=== PATIENT | male | born 1945 | race Caucasian/White ===

== ENCOUNTER 2017-08-31 08:37 | Outpatient (CLI) | payer MEDICARE, BC ==
[2017-08-31 12:36] LABS: CHOL/HDL RATIO 8.6 (<5.0); CHOLESTEROL 285 mg/dL; HDL CHOLESTEROL 33 mg/dL; LDL/HDL RATIO 5.3 (<3.6); TRIGLYCERIDES 391 mg/dL; VLDL CHOLESTEROL 78 mg/dL
== END 2017-08-31 08:38 | disposition home or self-care (01) ==
LOC: LAB.F 08:37
PROVIDERS: ATTEND Family Medicine
DX: E78.2 Mixed hyperlipidemia (principal); Z79.01 Long term (current) use of anticoagulants; Z79.899 Other long term (current) drug therapy; I48.91 Unspecified atrial fibrillation
CPT/HCPCS: 36415; 80061; 85610

== ENCOUNTER 2017-10-13 08:27 | Outpatient (CLI) | payer MEDICARE, BC ==
[2017-10-13 18:06] LABS: CHOL/HDL RATIO 8.1 (<5.0); CHOLESTEROL 244 mg/dL; HDL CHOLESTEROL 30 mg/dL; LDL/HDL RATIO 5.9 (<3.6); TRIGLYCERIDES 190 mg/dL; VLDL CHOLESTEROL 38 mg/dL
== END 2017-10-13 08:28 | disposition home or self-care (01) ==
LOC: LAB.F 08:27
PROVIDERS: ATTEND Family Medicine
DX: Z79.01 Long term (current) use of anticoagulants (principal); I48.91 Unspecified atrial fibrillation; E78.2 Mixed hyperlipidemia
CPT/HCPCS: 36415; 80061; 85610

== ENCOUNTER 2017-11-09 11:16 | Outpatient (CLI) | payer MEDICARE, BC | END 2017-11-09 11:17 | disposition home or self-care (01) | LOC: LAB.F 11:16 | PROVIDERS: ATTEND Family Medicine | DX: Z79.01 Long term (current) use of anticoagulants (principal); I48.91 Unspecified atrial fibrillation | CPT/HCPCS: 85610 ==

== ENCOUNTER 2018-01-11 07:54 | Outpatient (CLI) | payer MEDICARE, BC ==
[2018-01-11 12:43] LABS: ALBUMIN 3.6 g/dL (3.2-5.5); ALBUMIN/GLOBULIN RATIO 1.2 (1.0-2.2); ALKALINE PHOSPHATASE 81 IU/L (42-121); ALT ALANINE AMINOTRANSFERASE 21 IU/L (10-60); AST ASPARTATE AMINOTRANSFERASE 21 IU/L (10-42); BILIRUBIN,TOTAL 0.5 mg/dL (0.2-1.0); BUN - BLOOD UREA NITROGEN 21 mg/dL (6-20); CALCIUM 8.5 mg/dL (8.5-10.3); CARBON DIOXIDE - CO2 26 mmol/L (21-32); CHLORIDE 105 mmol/L (101-111); CHOL/HDL RATIO 8.3 (<5.0); CHOLESTEROL 231 mg/dL; CREATININE 1.3 mg/dL (0.6-1.2); GFR - MDRD 54 (>89); GLUCOSE 99 mg/dL (70-100); HDL CHOLESTEROL 28 mg/dL; LDL CHOLESTEROL,CALCULATED 152 mg/dL; LDL/HDL RATIO 5.4 (<3.6); SODIUM 137 mmol/L (135-145); TOTAL PROTEIN 6.5 g/dL (6.7-8.2); VLDL CHOLESTEROL 51 mg/dL
== END 2018-01-11 07:55 | disposition home or self-care (01) ==
LOC: LAB.F 07:54
PROVIDERS: ATTEND Family Medicine
DX: I48.91 Unspecified atrial fibrillation (principal); Z79.01 Long term (current) use of anticoagulants; E78.2 Mixed hyperlipidemia; E29.1 Testicular hypofunction; E03.9 Hypothyroidism, unspecified; Z79.899 Other long term (current) drug therapy
CPT/HCPCS: 36415; 80053; 80061; 83721; 84403; 84443; 85610

== ENCOUNTER 2018-11-25 09:13 | Outpatient (CLI) | payer MEDICARE, BC ==
[2018-11-25 17:55] LABS: MEAN CORPUSCULAR HEMOGLOBIN 31.2 pg (27.0-31.0); MEAN CORPUSCULAR VOLUME 94.4 fL (80.0-94.0); MEAN PLATELET VOLUME 8.4 fL (7.4-11.4); RED BLOOD COUNT 4.79 10^6/uL (4.70-6.10); RED CELL DISTRIBUTION WIDTH 13.1 % (12.0-15.0); WHITE BLOOD COUNT 7.6 x10^3/uL (4.8-10.8)
[2018-11-25 20:30] LABS: ALBUMIN 3.9 g/dL (3.2-5.5); ALBUMIN/GLOBULIN RATIO 1.3 (1.0-2.2); ALKALINE PHOSPHATASE 100 IU/L (42-121); ALT ALANINE AMINOTRANSFERASE 30 IU/L (10-60); AST ASPARTATE AMINOTRANSFERASE 22 IU/L (10-42); BILIRUBIN,TOTAL 0.6 mg/dL (0.2-1.0); BUN - BLOOD UREA NITROGEN 25 mg/dL (6-20); CALCIUM 8.9 mg/dL (8.5-10.3); CARBON DIOXIDE - CO2 28 mmol/L (21-32); CHLORIDE 105 mmol/L (101-111); CHOL/HDL RATIO 7.9 (<5.0); CHOLESTEROL 260 mg/dL; GFR - MDRD 73 (>89); GLUCOSE 94 mg/dL (70-100); HDL CHOLESTEROL 33 mg/dL; LDL CHOLESTEROL,CALCULATED 151 mg/dL; LDL/HDL RATIO 4.6 (<3.6); SODIUM 139 mmol/L (135-145); VLDL CHOLESTEROL 76 mg/dL
== END 2018-11-25 09:14 | disposition home or self-care (01) ==
LOC: LAB.F 09:13
PROVIDERS: ATTEND Family Medicine
DX: E78.2 Mixed hyperlipidemia (principal); Z79.899 Other long term (current) drug therapy; E74.9 Disorder of carbohydrate metabolism, unspecified
CPT/HCPCS: 36415; 80053; 80061; 83721; 85027

== ENCOUNTER 2019-04-07 08:03 | Outpatient (CLI) | payer MEDICARE, BC ==
[2019-04-07 11:33] LABS: BASOPHILS % (AUTO) 0.4 %; EOSINOPHILS # (AUTO) 0.3 10^3/uL (0.0-0.7); EOSINOPHILS % (AUTO) 5.2 %; LYMPHOCYTES # (AUTO) 2.3 10^3/uL (1.5-3.5); LYMPHOCYTES % (AUTO) 35.4 %; MEAN CORPUSCULAR HEMOGLOBIN 30.3 pg (27.0-31.0); MEAN CORPUSCULAR HGB CONC 33.4 g/dL (32.0-36.0); MEAN CORPUSCULAR VOLUME 90.6 fL (80.0-94.0); MEAN PLATELET VOLUME 7.7 fL (7.4-11.4); MONOCYTES # (AUTO) 0.6 10^3/uL (0.0-1.0); MONOCYTES % (AUTO) 9.5 %; NEUTROPHILS # (AUTO) 3.3 10^3/uL (1.5-6.6); NEUTROPHILS % (AUTO) 49.5 %; PLT - PLATELET COUNT 235 10^3/uL (130-450); RED BLOOD COUNT 4.62 10^6/uL (4.70-6.10); RED CELL DISTRIBUTION WIDTH 13.1 % (12.0-15.0); WHITE BLOOD COUNT 6.6 x10^3/uL (4.8-10.8)
[2019-04-07 12:12] LABS: ALBUMIN 3.8 g/dL (3.2-5.5); ALBUMIN/GLOBULIN RATIO 1.3 (1.0-2.2); ALKALINE PHOSPHATASE 87 IU/L (42-121); ALT ALANINE AMINOTRANSFERASE 22 IU/L (10-60); AST ASPARTATE AMINOTRANSFERASE 23 IU/L (10-42); BILIRUBIN,TOTAL 0.7 mg/dL (0.2-1.0); BUN - BLOOD UREA NITROGEN 32 mg/dL (6-20); CALCIUM 8.8 mg/dL (8.5-10.3); CARBON DIOXIDE - CO2 26 mmol/L (21-32); CHLORIDE 108 mmol/L (101-111); CHOL/HDL RATIO 6.8 (<5.0); CHOLESTEROL 170 mg/dL; CREATININE 1.3 mg/dL (0.6-1.2); GFR - MDRD 54 (>89); GLUCOSE 97 mg/dL (70-100); HDL CHOLESTEROL 25 mg/dL; LDL CHOLESTEROL,CALCULATED 122 mg/dL; LDL/HDL RATIO 4.9 (<3.6); MAGNESIUM 2.1 mg/dL (1.7-2.8); SODIUM 139 mmol/L (135-145); TOTAL PROTEIN 6.7 g/dL (6.7-8.2); VLDL CHOLESTEROL 23 mg/dL
== END 2019-04-07 08:04 | disposition home or self-care (01) ==
LOC: LAB.F 08:03
PROVIDERS: ATTEND Family Medicine
DX: E03.9 Hypothyroidism, unspecified (principal); E74.9 Disorder of carbohydrate metabolism, unspecified; E78.2 Mixed hyperlipidemia; I48.0 Paroxysmal atrial fibrillation; Z79.899 Other long term (current) drug therapy
CPT/HCPCS: 36415; 80053; 80061; 83721; 83735; 84443; 85025

== ENCOUNTER 2019-07-05 08:07 | Outpatient (CLI) | payer MEDICARE, BC ==
[2019-07-05 10:12] LABS: CHOL/HDL RATIO 6.4 (<5.0); CHOLESTEROL 204 mg/dL; HDL CHOLESTEROL 32 mg/dL; LDL CHOLESTEROL,CALCULATED 141 mg/dL; LDL/HDL RATIO 4.4 (<3.6); VLDL CHOLESTEROL 31 mg/dL
== END 2019-07-05 08:08 | disposition home or self-care (01) ==
LOC: LAB.S 08:07
PROVIDERS: ATTEND Family Medicine
DX: E03.9 Hypothyroidism, unspecified (principal); E74.9 Disorder of carbohydrate metabolism, unspecified; I48.0 Paroxysmal atrial fibrillation; E78.2 Mixed hyperlipidemia; Z79.01 Long term (current) use of anticoagulants; I48.91 Unspecified atrial fibrillation
CPT/HCPCS: 36415; 80061; 83721; 85610

== ENCOUNTER 2019-07-13 11:43 | Outpatient (CLI) | payer MEDICARE, BC | END 2019-07-13 11:44 | disposition home or self-care (01) | LOC: LAB.S 11:43 | PROVIDERS: ATTEND Family Medicine | DX: E03.9 Hypothyroidism, unspecified (principal); E78.2 Mixed hyperlipidemia | CPT/HCPCS: 36415; 84443 ==

== ENCOUNTER 2020-05-05 15:45 | Outpatient (CLI) | payer MEDICARE, BC | END 2020-05-05 15:46 | disposition short-term general hospital (02) | LOC: EMS 15:45 | PROVIDERS: ATTEND Surgery | DX: R53.82 Chronic fatigue, unspecified (principal) | CPT/HCPCS: A0425; A0429 ==

== ENCOUNTER 2021-01-05 18:04 | Emergency (ER) | payer MEDICARE, BC ==
[2021-01-05] MEDS ORDERED: HYDROmorphone 1 MG/ML CARPUJECT IVP STA (18:19)
[2021-01-05] MEDS ORDERED: ONDANSETRON 4 MG/2 ML VIAL IVP STA (18:19)
[2021-01-05] MEDS ORDERED: diltiaZEM INJ 5 MG/ML VIAL IVP STA (18:27)
--- NOTE | 2021-01-05 18:31 | ED Physician Documentation ---
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 Some nausea no vomiting. Positive diarrhea. Patient states that for the last 30 hours he has had at least 12-15 watery stools. He did not get in contact with his primary care provider who recommended he come to the ER for evaluation of possible biliary colic. He denies fevers dysuria urgency or frequency. He denies chest pain or shortness of breath. He will take metoprolol as needed when he notices if he goes into atrial fib. He is anticoagulated however on Eliquis. Denies any pertinent past abdominal surgical history. Review of Systems Constitutional: denies: Fever, Chills Eyes: reports: Reviewed and negative Ears: reports: Reviewed and negative Nose: reports: Reviewed and negative Throat: reports: Reviewed and negative Cardiac: denies: Chest pain / pressure, Palpitations, Pedal edema, Calf pain Respiratory: denies: Dyspnea, Cough GI: reports: Abdominal Pain, Nausea, Diarrhea. denies: Abdominal Swelling, Vomiting, Bloody / black stool : denies: Dysuria, Frequency Skin: denies: Rash, Lesions Musculoskeletal: denies: Neck pain, Back pain PD PAST MEDICAL HISTORY - Present Medications Home Medications: Ambulatory Orders Medication Instructions Recorded Confirmed Amox/Clav 875/125 [Augmentin] 1 each PO Q12H #14 tab 01/05/21 Apixaban [Eliquis] 5 mg PO BID 01/05/21 01/05/21 Flecainide [Tambocar] 100 mg PO PRN PRN 01/05/21 01/05/21 Levothyroxine Sodium [Synthroid] 162 mcg PO DAILY 01/05/21 01/05/21 Metoprolol Tartrate [Lopressor] 50 mg PO PRN PRN 01/05/21 01/05/21 Tamsulosin HCl [Flomax] 0.4 mg PO DAILY 01/05/21 01/05/21 - Allergies Allergies/Adverse Reactions: Allergies Allergy/AdvReac Type Severity Reaction Status Date / Time No Known Drug Allergies Allergy Verified 01/05/21 18:28 PD ED PE EXPANDED - General General: Alert, No acute distress - Neck Neck: Supple w/out meningeal sx. No: Adenopathy - Cardiac Cardiac: Abnormal Rate, Irregularly irregular, Radial strong equal, Pedal strong equal, Cap refill < 2 sec. No: Murmur Present - Respiratory Respiratory: Clear to ausultation carla. No: Distress, Labored - Abdomen Abdomen: Normal Bowel sounds, Tender to palpation, RUQ (Tenderness with guarding and rebound right upper quadrant of the abdomen. Positive Cruz's. No lower abdominal tenderness left flank tenderness elicited) - Derm Derm: Normal color, Warm and dry. No: Rash - Extremities Extremities: Normal. No: Deformity, Tenderness - Neuro Neuro: Alert and Oriented X 3, CNII-XII intact - GCS Eye Opening: Spontaneous Motor: Obeys Commands Verbal: Oriented Total: 15 Results - Vitals Vitals: Vital Signs - 24 hr 01/05/21 01/05/21 01/05/21 18:05 18:36 18:43 Temperature 36.5 C Heart Rate 135 H 138 H 136 H Respiratory 20 21 30 H Rate Blood Pressure 142/82 H 101/86 H 104/67 O2 Saturation 100 97 94 01/05/21 01/05/21 01/05/21 18:50 18:53 18:58 Temperature Heart Rate 142 H 137 H 133 H Respiratory 14 14 18 Rate Blood Pressure 98/70 99/69 97/67 O2 Saturation 95 96 94 01/05/21 01/05/21 01/05/21 19:16 19:25 19:30 Temperature Heart Rate 134 H 129 H 131 H Respiratory 16 17 15 Rate Blood Pressure 102/68 114/80 110/75 O2 Saturation 97 97 96 01/05/21 01/05/21 01/05/21 19:34 19:38 19:43 Temperature Heart Rate 129 H 122 H 120 H Respiratory 12 13 12 Rate Blood Pressure 99/76 104/77 103/78 O2 Saturation 97 95 96 01/05/21 01/05/21 01/05/21 20:05 20:25 20:54 Temperature 37.1 C Heart Rate 123 H 119 H 118 H Respiratory 13 12 20 Rate Blood Pressure 117/77 110/68 101/77 O2 Saturation 98 98 97 01/05/21 21:00 Temperature Heart Rate 130 H Respiratory 14 Rate Blood Pressure 90/63 O2 Saturation 97 Oxygen O2 Source Room air - EKG (time done) 1829 Rate: Rate (enter#) (137) Rhythm: Atrial fibrillation (2:1) Intervals: No: Prolonged QT Ischemia: ST elevation c/w repol Compare to prior EKG: Old EKG unavailable Computer interpretation: Agree with computer - Labs Labs: Laboratory Tests 01/05/21 01/05/21 01/05/21 18:21 18:21 18:21 WBC 14.1 H RBC 5.68 Hgb 17.2 Hct 52.0 MCV 91.5 MCH 30.3 MCHC 33.1 RDW 12.6 Plt Count 258 MPV 9.4 Neut # (Auto) 10.1 H Lymph # (Auto) 2.8 [place] # (Auto) 1.0 Eos # (Auto) 0.2 Baso # (Auto) 0.1 Absolute Nucleated RBC 0.00 Nucleated RBC % 0.0 Sodium 138 Potassium 4.3 Chloride 103 Carbon Dioxide 23 Anion Gap 12.0 BUN 31 H Creatinine 1.5 H Estimated GFR (MDRD) 46 L Glucose 110 H Lactic Acid Calcium 9.5 Total Bilirubin 1.8 H AST 22 ALT 24 Alkaline Phosphatase 108 Total Protein 8.7 H Albumin 4.6 Globulin 4.1 Albumin/Globulin Ratio 1.1 Lipase 38 TSH < 0.08 L Free T4 Urine Color Urine Clarity Urine pH Ur Specific [place] Urine Protein Urine Glucose (UA) Urine Ketones Urine Occult Blood Urine Nitrite Urine Bilirubin Urine Urobilinogen Ur Leukocyte Esterase Ur Microscopic Review Urine Culture Comments 01/05/21 01/05/21 01/05/21 18:21 18:29 20:15 WBC RBC Hgb Hct MCV MCH MCHC RDW Plt Count MPV Neut # (Auto) Lymph # (Auto) [place] # (Auto) Eos # (Auto) Baso # (Auto) Absolute Nucleated RBC Nucleated RBC % Sodium Potassium Chloride Carbon Dioxide Anion Gap BUN Creatinine Estimated GFR (MDRD) Glucose Lactic Acid 1.5 Calcium Total Bilirubin AST ALT Alkaline Phosphatase Total Protein Albumin Globulin Albumin/Globulin Ratio Lipase TSH Free T4 1.42 Urine Color YELLOW Urine Clarity CLEAR Urine pH 5.5 Ur Specific [place] 1.020 Urine Protein NEGATIVE Urine Glucose (UA) NEGATIVE Urine Ketones NEGATIVE Urine Occult Blood TRACE-INTA Urine Nitrite NEGATIVE Urine Bilirubin NEGATIVE Urine Urobilinogen 0.2 (NORMAL) Ur Leukocyte Esterase NEGATIVE Ur Microscopic Review NOT INDICATED Urine Culture Comments NOT INDICATED - Rads (name of study) Abd US Radiology: Other (Per tech no gallbladder wall thickening CBD dilation. No pericholecystic fluid or shadowing stones.) CT abd Radiology: Final report received (Multiple fluid-filled loops of small bowel and colon with associated wall thickening or inflammatory stranding are nonspecific but may represent an enteritis/colitis with infectious or inflammatory etiology most likely. No evidence of bowel obstruction. Hepatic steatosis. Scattered diverticulosis) PD MEDICAL DECISION MAKING - ED course Complexity details: reviewed results, re-evaluated patient, considered differential, d/w patient ED course: 75-year-old male presents the emergency department for evaluation of 2 days right upper quadrant abdominal pain with some nausea and diarrhea. He does have a history of bradycardia for which she has a pacemaker set but also reports a history of paroxysmal atrial fib for which he will take as needed metoprolol. He is anticoagulated on Eliquis. On initial presentation he appears well but is quite tender in the right upper quadrant of the abdomen. He is noted to be in atrial flutter with a 2-1 conduction rate. We initially gave this gentleman 10 mg of diltiazem with out any effect on his heart rate. We then followed that with 5 mg of IV metoprolol which slowed his heart rate initially down into the 110s and it began to look more fibrillation versus flutter however it went back up into the 120s. We will repeat the 5 mg dose of metoprolol as well as give 50 mg of metoprolol orally. His BP remains stable. 2100: Patient mentioned to the nurse that he was not concerned about his heart rate. He reported to her and then me that he has a monitor at home that communicates with his pacer. It sends information to [facility] cardiology group. He reports that he often has heart rates in the 120s and 130s and that he is never aware of it. Patient is unsure why he did not relay this information sooner in the visit. At this time however he denies a sensation of palpitations, he does not have chest pain or shortness of breath. Screening electrolytes do reveal Mild renal insufficiency is he appears dehydrated with a creatinine of 1.5. He was given 1 L of IV fluid. CT of the abdomen shows multiple fluid-filled loops of the small bowel and colon likely enteritis colitis with infectious or inflammatory etiology. This is consistent with the abdominal pain and loose stool patient has been passing. His pain is mostly located in the right side of the abdomen but the abdominal ultrasound shows no findings consistent with cholecystitis or biliary colic. Patient will be started on a 7-day course of Augmentin. Recommended increased fluid supplementation at home with Pedialyte. Patient will return to the emergency department if diarrhea worsens, becomes bloody he develops suddenly severe or different bowel pain or he has fevers. Departure - Departure Disposition: Home, Self Care Clinical Impression: Atrial fibrillation and flutter Diarrhea Qualifiers: Diarrhea type: unspecified type Qualified Code(s): R19.7 - Diarrhea, unspecified Abdominal pain Qualifiers: Abdominal location: right lower quadrant Qualified Code(s): R10.31 - Right lower quadrant pain Condition: Stable Record reviewed to determine appropriate education?: Yes Instructions: ED Diet Brat Expanded Ch Follow-Up: Bj Marsh MD [Primary Care Provider] - Prescriptions: Amox/Clav 875/125 [Augmentin] 1 each PO Q12H #14 tab Comments: Aba barker were seen in the emergency department today for right-sided abdominal pain. You have also been having large amounts of diarrhea over the last 24 h ours. Your labs today show that you have a mildly elevated white blood cell count. The ultrasound shows no concerns with your gallbladder. However the CT scan did show that you have extensive fluid and air-filled loops of small bowel and large intestine. This is a condition called enteritis or colitis. This is most likely viral. However we will start you on a 7-day course of Augmentin. You are mildly dehydrated and we did give you some IV fluids here in the ER. It is important that you stay well-hydrated. I recommended that you take Pedialyte. A single dose of Imodium may be helpful to reduce the diarrhea. If you find that your symptoms are not improving, your diarrhea becomes bloody, you have fevers, suddenly severe belly pain please return immediately to the ER. We have found it interesting that you are not aware of the changes in your heart rate. However your chest x-ray looks normal and the screening labs to look for heart failure and a heart attack are also normal. Please discuss this ED visit with your cardiology group.
[2021-01-05 18:33] LABS: BASOPHILS # (AUTO) 0.1 10^3/uL (0.0-0.1); BASOPHILS % (AUTO) 0.4 %; EOSINOPHILS # (AUTO) 0.2 10^3/uL (0.0-0.7); EOSINOPHILS % (AUTO) 1.3 %; HGB - HEMOGLOBIN 17.2 g/dL (14.0-18.0); LYMPHOCYTES # (AUTO) 2.8 10^3/uL (1.5-3.5); LYMPHOCYTES % (AUTO) 19.6 %; MEAN CORPUSCULAR HEMOGLOBIN 30.3 pg (27.0-31.0); MEAN CORPUSCULAR HGB CONC 33.1 g/dL (32.0-36.0); MEAN CORPUSCULAR VOLUME 91.5 fL (80.0-94.0); MEAN PLATELET VOLUME 9.4 fL (7.4-11.4); MONOCYTES % (AUTO) 7.2 %; NEUTROPHILS # (AUTO) 10.1 10^3/uL (1.5-6.6); NEUTROPHILS % (AUTO) 71.1 %; PLT - PLATELET COUNT 258 10^3/uL (130-450); RED BLOOD COUNT 5.68 10^6/uL (4.70-6.10); RED CELL DISTRIBUTION WIDTH 12.6 % (12.0-15.0); WHITE BLOOD COUNT 14.1 x10^3/uL (4.8-10.8)
[2021-01-05 18:48] LABS: ALBUMIN 4.6 g/dL (3.2-5.5); ALBUMIN/GLOBULIN RATIO 1.1 (1.0-2.2); BILIRUBIN,TOTAL 1.8 mg/dL (0.2-1.0); CALCIUM 9.5 mg/dL (8.5-10.3); CREATININE 1.5 mg/dL (0.6-1.2); TOTAL PROTEIN 8.7 g/dL (6.7-8.2)
[2021-01-05] MEDS ORDERED: SODIUM CHLORIDE 0.9% 1,000 ML IV STA (19:01)
[2021-01-05] MEDS ORDERED: METOPROLOL 5 MG/5 ML VIAL IVP STA ×2 (19:15→19:23)
[2021-01-05] MEDS ORDERED: METOPROLOL TARTRATE 50 MG TABLET PO STA (19:53)
[2021-01-05] MEDS ORDERED: IOVERSOL 320 100 ML VIAL IVP ONE (20:03)
[2021-01-05 20:23] LABS: BILIRUBIN,URINE NEGATIVE (NEGATIVE); GLUCOSE, URINE (UA) NEGATIVE (NEGATIVE); KETONES,URINE (UA) NEGATIVE (NEGATIVE); LEUKOCYTE ESTERASE, URINE NEGATIVE (NEGATIVE); NITRITE,URINE NEGATIVE (NEGATIVE); OCCULT BLOOD,URINE TRACE-INTA (NEGATIVE); PH,URINE 5.5 PH (5.0-7.5); PROTEIN,URINE NEGATIVE (NEGATIVE); UROBILINOGEN,URINE 0.2 (NORMAL) E.U./dL (NORMAL)
[2021-01-05 20:24] LABS: CLARITY,URINE CLEAR (CLEAR)
--- NOTE | 2021-01-05 20:41 | Ultrasound Report ---
PROCEDURE: Abdomen Limited INDICATIONS: RUQ abd pain; ? biliary colic TECHNIQUE: Real-time scanning was performed of the abdominal and retroperitoneal organs, with image documentatio n. COMPARISON: None. FINDINGS: Liver: Liver is normal in size and demonstrates diffuse, coarsened echotexture. No focal intrahepat ic abnormalities. Gallbladder: Gallbladder is not well-visualized secondary to bowel gas. No gallstones visualized. No significant gallbladder wall thickening. No pericholecystic fluid. No abnormal sonographic Cruz's. Biliary ducts: Intrahepatic bile ducts are non-dilated. Extrahepatic bile duct caliber measures 4 m m. Normal is 6-7 mm or less in diameter, or 10 mm or less post-cholecystectomy. Pancreas: Pancreas not well visualized secondary to bowel gas. Kidneys: Right kidney is normal in size and echotexture. Right kidney measures 9.3 cm long; no hydro nephrosis or nephrolithiasis. No solid masses. Miscellaneous: No free abdominal fluid. IMPRESSION: Slightly limited evaluation of the abdomen secondary to overlying bowel gas. There is diffusely coarsened hepatic echotexture which may represent sequela of chronic hepatocellula r disease versus hepatic steatosis. Normal sonographic evaluation of the gallbladder. Reviewed by: Edward Gaviria MD on 01/05/2021 8:40 PM PST Approved by: Edward Gaviria MD on 01/05/2021 8:40 PM PST Station ID: [id number]
--- NOTE | 2021-01-05 20:50 | CT Report ---
PROCEDURE: Abdomen/Pelvis W INDICATIONS: Abdominal pain, acute, nonlocalized CONTRAST: IV CONTRAST: Optiray 320 ml: 100 PO CONTRAST: *NO PO CONTRAST TECHNIQUE: After the administration of weight appropriate dose of intravenous contrast, 5 mm thick sections acqu ired from the diaphragms to the symphysis. 5 mm thick coronal and sagittal reformats were acquired. For radiation dose reduction, the following was used: automated exposure control, adjustment of mA and/or kV according to patient size. COMPARISON: None. FINDINGS: Image quality: Excellent. ABDOMEN: Lung bases: Mild bibasilar atelectasis. Heart size is normal. Solid organs: Liver and spleen are normal in size and enhancement. Diffusely decreased hepatic atte nuation relative to the spleen compatible with hepatic steatosis. Gallbladder is unremarkable. Bilia ry system is non dilated. Pancreas enhances normally. No adrenal nodules. Kidneys demonstrate norm al size and enhancement, without hydronephrosis. Peritoneum and bowel: Scattered colonic diverticulosis without evidence for acute diverticulitis. Mu ltiple fluid-filled loops of small bowel and colon are visualized without associated wall thickening or adjacent inflammatory stranding. No evidence for bowel obstruction. No free fluid or air. Nodes and vessels: No retroperitoneal or mesenteric adenopathy by size criteria. Aorta and inferior vena cava are normal in size. Extensive atherosclerotic calcifications of the abdominal aorta and i liac vessels without aneurysmal dilatation. Miscellaneous: No ventral hernias. PELVIS: Genitourinary: Bladder wall thickness is normal. Miscellaneous: No inguinal hernias or adenopathy. Bones: No suspicious bony lesions. No acute vertebral body compression fractures. Moderate multilev el spondylosis seen throughout the imaged spine most severe at T10-T11, L2-3, and L5-S1. IMPRESSION: 1. Multiple fluid filled loops of small bowel and colon without associated wall thickening or inflamm atory stranding are nonspecific, but may represent an enteritis/colitis with infectious or inflammato ry etiology most likely. No evidence for bowel obstruction. 2. Hepatic steatosis. 3. Scattered colonic diverticulosis without evidence for acute diverticulitis. 4. Extensive atherosclerotic vascular disease. Reviewed by: Edward Gaviria MD on 01/05/2021 8:48 PM PST Approved by: Edward Gaviria MD on 01/05/2021 8:48 PM PST Station ID: [id number]
[2021-01-05] MEDS ORDERED: AMOX/CLAV 875 MG/125 MG TABLET PO STA (21:26)
[2021-01-05 21:34] VITALS: BP 93/82
== END 2021-01-05 21:44 | disposition home or self-care (01) ==
LOC: ED 18:04
DX: R10.11 Right upper quadrant pain (principal); R19.7 Diarrhea, unspecified; R11.0 Nausea; E86.0 Dehydration; N28.9 Disorder of kidney and ureter, unspecified; I48.92 Unspecified atrial flutter; I44.1 Atrioventricular block, second degree; I48.0 Paroxysmal atrial fibrillation; Z79.01 Long term (current) use of anticoagulants; Z95.0 Presence of cardiac pacemaker; K76.0 Fatty (change of) liver, not elsewhere classified
CPT/HCPCS: 36415; 74177; 76705; 80053; 81003; 83605; 83690; 84439; 84443; 85025; 93005; 96361; 96374; 96375; 99284; 99285; A9270; J1170; Q9967; 81001; 87086

== ENCOUNTER 2021-06-27 15:49 | Emergency (ER) | payer MEDICARE, BC ==
[2021-06-27] MEDS ORDERED: SODIUM CHLORIDE 0.9% 1,000 ML IV STA ×3 (16:35→17:59)
--- NOTE | 2021-06-27 16:57 | XRAY Report ---
PROCEDURE: Chest 1 View X-Ray INDICATIONS: cough, fever, unvaccinated for covid TECHNIQUE: One view of the chest was acquired. COMPARISON: CT abdomen and pelvis 01/05/2021. FINDINGS: Surgical changes and devices: Left pacemaker with right atrial and right ventricular leads. Left alpesh ulder anchors. Lungs and pleura: No pleural effusions or pneumothorax. Mild bilateral patchy airspace opacity. Low lung volumes. Mediastinum: Mediastinal contours appear normal. Heart size is normal. Bones and chest wall: No suspicious bony lesions. Overlying soft tissues appear unremarkable. IMPRESSION: Mild bilateral patchy airspace opacity. Findings concerning for multifocal pneumonia. Covid 19 could have this appearance. Reviewed by: Juan Guo MD on 06/27/2021 4:55 PM PDT Approved by: Juan Guo MD on 06/27/2021 4:55 PM PDT Station ID: [id number]
[2021-06-27 17:04] LABS: BASOPHILS % (AUTO) 0.2 %; HCT - HEMATOCRIT 47.9 % (42.0-52.0); LYMPHOCYTES # (AUTO) 1.1 10^3/uL (1.5-3.5); LYMPHOCYTES % (AUTO) 25.2 %; MEAN CORPUSCULAR HEMOGLOBIN 30.5 pg (27.0-31.0); MEAN CORPUSCULAR HGB CONC 33.4 g/dL (32.0-36.0); MEAN CORPUSCULAR VOLUME 91.2 fL (80.0-94.0); MEAN PLATELET VOLUME 9.9 fL (7.4-11.4); MONOCYTES # (AUTO) 0.4 10^3/uL (0.0-1.0); MONOCYTES % (AUTO) 9.1 %; NEUTROPHILS # (AUTO) 2.8 10^3/uL (1.5-6.6); NEUTROPHILS % (AUTO) 65.3 %; PLT - PLATELET COUNT 126 10^3/uL (130-450); RED BLOOD COUNT 5.25 10^6/uL (4.70-6.10); RED CELL DISTRIBUTION WIDTH 12.8 % (12.0-15.0); WHITE BLOOD COUNT 4.3 x10^3/uL (4.8-10.8)
[2021-06-27 17:05] LABS: SLIDE REVIEW? Indicated
[2021-06-27 17:11] LABS: ALBUMIN 4.1 g/dL (3.2-5.5); ALBUMIN/GLOBULIN RATIO 1.1 (1.0-2.2); BILIRUBIN,TOTAL 1.1 mg/dL (0.2-1.0); CALCIUM 8.8 mg/dL (8.5-10.3); CREATININE 1.5 mg/dL (0.6-1.2); POTASSIUM 4.6 mmol/L (3.5-5.0); TOTAL PROTEIN 7.8 g/dL (6.7-8.2)
[2021-06-27 17:37] LABS: PLATELET ESTIMATE, MANUAL DECREASED (<130,000) (NORMAL); PLATELET MORPHOLOGY NORMAL APPEARANCE (NORMAL); RBC MORPHOLOGY (MULTIPLE) NORMAL APPEARANCE (NORMAL); WBC MORPHOLOGY (MULTIPLE) NORMAL APPEARANCE (NORMAL)
[2021-06-27 17:38] LABS: DIFFERENTIAL COMMENT MANUAL=AUTO DIFF
[2021-06-27 17:41] LABS: CORONAVIRUS 229E-RESP PCR NOT DETECTED; CORONAVIRUS HKU1-RESP PCR NOT DETECTED; CORONAVIRUS NL63-RESP PCR NOT DETECTED; CORONAVIRUS OC43-RESP PCR NOT DETECTED
[2021-06-27 17:42] LABS: B. PARAPERTUSSIS- RESP PCR PAN NOT DETECTED; B. PERTUSSIS- RESP PCR PANEL NOT DETECTED; C. PNEUMONIAE- RESP PCR PANEL NOT DETECTED; HUMAN METAPNEUMOVIRUS NOT DETECTED; INFLUENZA A- RESP PCR PANEL NOT DETECTED; INFLUENZA B - RESP PCR PANEL NOT DETECTED; M. PNEUMONIAE- RESP PCR PANEL NOT DETECTED; PARAINFLUENZA VIRUS 1 NOT DETECTED; PARAINFLUENZA VIRUS 2 NOT DETECTED; PARAINFLUENZA VIRUS 3 NOT DETECTED; PARAINFLUENZA VIRUS 4 NOT DETECTED; RHINOVIRUS/ENTEROVIRUS NOT DETECTED; RSV- RESP PCR PANEL NOT DETECTED; SARS-CoV-2 -RESP PCR PANEL DETECTED
--- NOTE | 2021-06-27 17:53 | ED Physician Documentation ---
History of Present Illness - Stated complaint Stated Complaint: FEVER/BODY ACHE/FATIGUE - Chief complaint Chief Complaint: Resp - History obtained from History obtained from: Patient - History of Present Illness Timing: How many weeks ago (1) Pain level max: 5 Pain level now: 5 - Additonal information Additional information: 75-year-old male presents to the emergency department with fever, body aches and dry cough. He chose not to have his Covid vaccination secondary to concerns over the "formulation of it". Nothing makes it better or worse. He states he feels weak and dehydrated. No vomiting. Occasional diarrhea. Occasional nausea. Decreased p.o. intake. Review of Systems Ten Systems: 10 systems reviewed and negative Constitutional: reports: Fever (102.1). denies: Chills Nose: denies: Rhinorrhea / runny nose, Congestion Cardiac: denies: Chest pain / pressure Respiratory: reports: Cough. denies: Dyspnea, Wheezing GI: reports: Diarrhea. denies: Abdominal Pain, Vomiting Skin: denies: Rash Musculoskeletal: denies: Neck pain, Back pain Neurologic: denies: Headache PD PAST MEDICAL HISTORY - Past Medical History Cardiovascular: Atrial fibrillation - Past Surgical History Past Surgical History: Yes Cardiovascular: Pacemaker - Present Medications Home Medications: Ambulatory Orders Medication Instructions Recorded Confirmed Amox/Clav 875/125 [Augmentin] 1 each PO Q12H #14 tab 01/05/21 Apixaban [Eliquis] 5 mg PO BID 01/05/21 01/05/21 Flecainide [Tambocar] 100 mg PO PRN PRN 01/05/21 01/05/21 Levothyroxine Sodium [Synthroid] 162 mcg PO DAILY 01/05/21 01/05/21 Metoprolol Tartrate [Lopressor] 50 mg PO PRN PRN 01/05/21 01/05/21 Tamsulosin HCl [Flomax] 0.4 mg PO DAILY 01/05/21 01/05/21 - Allergies Allergies/Adverse Reactions: Allergies Allergy/AdvReac Type Severity Reaction Status Date / Time No Known Drug Allergies Allergy Verified 01/05/21 18:28 - Social History Does the pt smoke?: No Smoking Status: Never smoker Does the pt have substance abuse?: No - Immunizations Immunizations are current?: Yes - POLST Patient has POLST: No PD ED PE NORMAL - Vitals Vital signs reviewed: Yes - General General: Alert and oriented X 3, No acute distress, Well developed/nourished - HEENT HEENT: PERRL, Ears normal, Moist mucous membranes, Pharynx benign - Neck Neck: Supple, no meningeal sign - Cardiac Cardiac: RRR, Strong equal pulses - Respiratory Respiratory: No respiratory distress, Clear bilaterally - Abdomen Abdomen: Soft, Non tender, Non distended - Derm Derm: Warm and dry - Extremities Extremities: No edema, No calf tenderness / cord - Neuro Neuro: Alert and oriented X 3 - Psych Psych: Normal mood, Normal affect Results - Vitals Vitals: Vital Signs - 24 hr 06/27/21 06/27/21 06/27/21 15:55 16:33 18:35 Temperature 37.3 C Heart Rate 59 L 59 L 59 L Respiratory 22 16 16 Rate Blood Pressure 168/78 H 142/111 H 170/90 H O2 Saturation 94 95 95 Oxygen O2 Source Room air - Labs Labs: Laboratory Tests 06/27/21 06/27/21 06/27/21 16:06 16:45 16:45 WBC 4.3 L RBC 5.25 Hgb 16.0 Hct 47.9 MCV 91.2 MCH 30.5 MCHC 33.4 RDW 12.8 Plt Count 126 L MPV 9.9 Neut # (Auto) 2.8 Lymph # (Auto) 1.1 L [place] # (Auto) 0.4 Eos # (Auto) 0.0 Baso # (Auto) 0.0 Absolute Nucleated RBC 0.00 Band Neuts % (Manual) Not Reportable Abnorm Lymph % (Manual) Not Reportable Nucleated RBC % 0.0 Neutrophils # (Manual) Not Reportable Lymphocytes # (Manual) Not Reportable Monocytes # (Manual) Not Reportable Eosinophils # (Manual) Not Reportable Basophils # (Manual) Not Reportable Differential Comment MANUAL=AUTO DIFF Manual Slide Review Indicated WBC Morphology NORMAL APPEARANCE Platelet Estimate DECREASED (<130,000) Platelet Morphology NORMAL APPEARANCE RBC Morph Micro Appear NORMAL APPEARANCE Sodium 133 L Potassium 4.6 Chloride 98 L Carbon Dioxide 23 Anion Gap 12.0 BUN 27 H Creatinine 1.5 H Estimated GFR (MDRD) 46 L Glucose 108 H Calcium 8.8 Total Bilirubin 1.1 H AST 37 ALT 29 Alkaline Phosphatase 108 Total Protein 7.8 Albumin 4.1 Globulin 3.7 Albumin/Globulin Ratio 1.1 Lipase 64 H Nasal Adenovirus (PCR) NOT DETECTED Nasal B. parapertussis DNA (PCR) NOT DETECTED Nasal Coronavir 229E PCR NOT DETECTED Nasal Coronavir HKU1 PCR NOT DETECTED Nasal Coronavir NL63 PCR NOT DETECTED Nasal Coronavir OC43 PCR NOT DETECTED Nasal Enterovir/Rhinovir PCR NOT DETECTED Nasal Influenza B PCR NOT DETECTED Nasal Influenza A PCR NOT DETECTED Nasal Parainfluen 1 PCR NOT DETECTED Nasal Parainfluen 2 PCR NOT DETECTED Nasal Parainfluen 3 PCR NOT DETECTED Nasal Parainfluen 4 PCR NOT DETECTED Nasal RSV (PCR) NOT DETECTED Nasal B.pertussis DNA PCR NOT DETECTED Nasal C.pneumoniae (PCR) NOT DETECTED Sai Human Metapneumo PCR NOT DETECTED Nasal M.pneumoniae (PCR) NOT DETECTED Nasal SARS-CoV-2 (PCR) DETECTED A - Rads (name of study) Chest x-ray Radiology: Final report received, EMP read contemporaneously, See rad report (Mild bilateral patchy airspace opacity. Findings concerning for multifocal pneumonia. Covid 19 could have this appearance. ) PD MEDICAL DECISION MAKING - ED course Complexity details: reviewed results, re-evaluated patient, considered differential, d/w patient ED course: Patient is positive for Covid 19. He is not hypoxic. Does appear to have lung findings consistent with COVID-19. Discussed risks and benefits of monoclonal antibody therapy. Patient does not want this therapy either. He states he will go home and "tough it out". Patient is well-appearing, nontoxic. Afebrile. Tolerating p.o. without difficulty. Patient counseled regarding signs and symptoms for which I believe and urgent re-evaluation would be necessary. Patient with good understanding of and agreement to plan and is comfortable going home at this time This document was made in part using voice recognition software. While efforts are made to proofread this document, sound alike and grammatical errors may occur. Departure - Departure Disposition: 01 Home, Self Care Clinical Impression: COVID-19 Condition: Good Instructions: COVID-19 [facility] Follow-Up: Bj Marsh MD [Primary Care Provider] - Within 1 week Comments: Continue to drink plenty of fluids at home. Follow-up with your doctor for further care. If your breathing worsens, please return for repeat evaluation. We did discuss monoclonal antibody therapy, you have declined this tonight. You need to stay quarantined at home until symptoms have resolved. Any close contact should be tested as well. If any friends or family get sick and would like to have a Covid test done, but do not have signs or symptoms that would necessitate being hospitalized, we encourage testing through our coronavirus swabbing station, call [phone] to schedule an appointment.
[2021-06-27 18:35] VITALS: BP 170/90
[2021-06-27 18:41] LABS: BILIRUBIN,URINE NEGATIVE (NEGATIVE); GLUCOSE, URINE (UA) NEGATIVE (NEGATIVE); KETONES,URINE (UA) TRACE mg/dL (NEGATIVE); LEUKOCYTE ESTERASE, URINE NEGATIVE (NEGATIVE); NITRITE,URINE NEGATIVE (NEGATIVE); OCCULT BLOOD,URINE SMALL (NEGATIVE); PH,URINE 5.5 PH (5.0-7.5); PROTEIN,URINE 100 mg/dL (NEGATIVE); UROBILINOGEN,URINE 0.2 (NORMAL) E.U./dL (NORMAL)
[2021-06-27 18:42] LABS: CLARITY,URINE CLEAR (CLEAR)
[2021-06-27 18:50] LABS: RBC,URINE 0-5 /HPF (0-5); SQUAMOUS EPITHELIAL CELL,UR NONE SEEN (<= Few); WBC,URINE 0-3 /HPF (0-3)
[2021-06-27 18:51] LABS: BACTERIA,URINE Few /HPF (None Seen)
== END 2021-06-27 18:59 | disposition home or self-care (01) ==
LOC: ED 15:49
DX: U07.1 COVID-19 (principal)
CPT/HCPCS: 0202U; 36415; 80053; 81001; 81003; 83690; 85025; 87086; 96360; 96361; 99284

== ENCOUNTER 2021-06-29 17:43 | Inpatient (IN) | payer MEDICARE, BC ==
[2021-06-29] MEDS ORDERED: SODIUM CHLORIDE 0.9% 1,000 ML IV STA (19:16)
--- NOTE | 2021-06-29 19:18 | ED Physician Documentation ---
History of Present Illness - Stated complaint Stated Complaint: C+, SOA - Chief complaint Chief Complaint: Resp - History obtained from History obtained from: Patient - History of Present Illness Pain level max: 1 Pain level now: 1 - Additonal information Additional information: States he has been sick for the past 8 to 9 days. He was seen here previously, tested positive for Covid. Did not want monoclonal antibodies at that time. Has not had his Covid vaccinations. He returns today feeling worse. Feeling more out of breath, more tired, more fatigue. Review of Systems Ten Systems: 10 systems reviewed and negative Constitutional: reports: Fever, Chills Cardiac: denies: Chest pain / pressure Respiratory: reports: Dyspnea, Cough GI: denies: Vomiting, Diarrhea Skin: denies: Rash Musculoskeletal: denies: Neck pain, Back pain Neurologic: denies: Headache PD PAST MEDICAL HISTORY - Past Medical History Cardiovascular: Atrial fibrillation - Past Surgical History Past Surgical History: Yes Cardiovascular: Pacemaker - Present Medications Home Medications: Ambulatory Orders Medication Instructions Recorded Confirmed Amox/Clav 875/125 [Augmentin] 1 each PO Q12H #14 tab 01/05/21 Apixaban [Eliquis] 5 mg PO BID 01/05/21 01/05/21 Flecainide [Tambocar] 100 mg PO PRN PRN 01/05/21 01/05/21 Levothyroxine Sodium [Synthroid] 162 mcg PO DAILY 01/05/21 01/05/21 Metoprolol Tartrate [Lopressor] 50 mg PO PRN PRN 01/05/21 01/05/21 Tamsulosin HCl [Flomax] 0.4 mg PO DAILY 01/05/21 01/05/21 - Allergies Allergies/Adverse Reactions: Allergies Allergy/AdvReac Type Severity Reaction Status Date / Time No Known Drug Allergies Allergy Verified 01/05/21 18:28 - Social History Does the pt smoke?: No Smoking Status: Never smoker Does the pt have substance abuse?: No - Immunizations Immunizations are current?: Yes - POLST Patient has POLST: No PD ED PE NORMAL - Vitals Vital signs reviewed: Yes - General General: Alert and oriented X 3, No acute distress - HEENT HEENT: Moist mucous membranes - Neck Neck: Supple, no meningeal sign - Cardiac Cardiac: RRR - Respiratory Respiratory: No respiratory distress, Clear bilaterally - Derm Derm: Warm and dry - Neuro Neuro: Alert and oriented X 3 Results - Vitals Vitals: Vital Signs - 24 hr 06/29/21 06/29/21 17:52 18:15 Temperature 37.2 C Heart Rate 61 60 Respiratory 19 24 Rate Blood Pressure 139/87 H O2 Saturation 88 L 90 L Oxygen O2 Source Nasal cannula Oxygen Flow Rate 2 - Labs Labs: Laboratory Tests 06/29/21 06/29/21 06/29/21 19:08 19:08 19:08 WBC 4.6 L RBC 5.01 Hgb 15.2 Hct 44.8 MCV 89.4 MCH 30.3 MCHC 33.9 RDW 13.0 Plt Count 122 L MPV 10.1 Neut # (Auto) 3.3 Lymph # (Auto) 0.8 L [place] # (Auto) 0.4 Eos # (Auto) 0.0 Baso # (Auto) 0.0 Absolute Nucleated RBC 0.00 Nucleated RBC % 0.0 PT 20.6 H INR 1.9 H D-Dimer 241.4 Sodium 133 L Potassium 4.4 Chloride 98 L Carbon Dioxide 23 Anion Gap 12.0 BUN 25 H Creatinine 1.5 H Estimated GFR (MDRD) 46 L Glucose 114 H Lactic Acid Calcium 8.6 Total Bilirubin 0.9 AST 54 H ALT 33 Alkaline Phosphatase 100 C-Reactive Protein Total Protein 7.0 Albumin 3.8 Globulin 3.2 Albumin/Globulin Ratio 1.2 06/29/21 06/29/21 19:08 19:08 WBC RBC Hgb Hct MCV MCH MCHC RDW Plt Count MPV Neut # (Auto) Lymph # (Auto) [place] # (Auto) Eos # (Auto) Baso # (Auto) Absolute Nucleated RBC Nucleated RBC % PT INR D-Dimer Sodium Potassium Chloride Carbon Dioxide Anion Gap BUN Creatinine Estimated GFR (MDRD) Glucose Lactic Acid 1.4 Calcium Total Bilirubin AST ALT Alkaline Phosphatase C-Reactive Protein 7.8 H Total Protein Albumin Globulin Albumin/Globulin Ratio - Rads (name of study) cxr Radiology: Final report received, EMP read contemporaneously, See rad report (Fairly stable extent of bilateral peripheral alveolar opacities consistent with viral pneumonitis.) PD MEDICAL DECISION MAKING - ED course Complexity details: reviewed old records, reviewed results, re-evaluated patient, considered differential, d/w patient, d/w portrait consultant ED course: Patient with worsening COVID-19. He is unvaccinated and had refused monoclonal antibodies 2 days ago. He presents with hypoxia and worsening respiratory status. Discussed the case with Dr. Sen, hospitalist who accepts. Patient will need to be admitted. This document was made in part using voice recognition software. While efforts are made to proofread this document, sound alike and grammatical errors may occur. Departure - Departure Disposition: 66 [facility] DC/Xfer Clinical Impression: Hypoxia, COVID-19 Condition: Stable Discharge Date/Time: 06/29/21 20:20
[2021-06-29 19:24] LABS: BASOPHILS % (AUTO) 0.2 %; HCT - HEMATOCRIT 44.8 % (42.0-52.0); HGB - HEMOGLOBIN 15.2 g/dL (14.0-18.0); LYMPHOCYTES # (AUTO) 0.8 10^3/uL (1.5-3.5); MEAN CORPUSCULAR HEMOGLOBIN 30.3 pg (27.0-31.0); MEAN CORPUSCULAR HGB CONC 33.9 g/dL (32.0-36.0); MEAN CORPUSCULAR VOLUME 89.4 fL (80.0-94.0); MEAN PLATELET VOLUME 10.1 fL (7.4-11.4); MONOCYTES # (AUTO) 0.4 10^3/uL (0.0-1.0); MONOCYTES % (AUTO) 8.8 %; NEUTROPHILS # (AUTO) 3.3 10^3/uL (1.5-6.6); NEUTROPHILS % (AUTO) 72.6 %; PLT - PLATELET COUNT 122 10^3/uL (130-450); RED BLOOD COUNT 5.01 10^6/uL (4.70-6.10); WHITE BLOOD COUNT 4.6 x10^3/uL (4.8-10.8)
[2021-06-29 19:31] LABS: D-DIMER 241.4 ng/mL (200.0-255.0)
[2021-06-29 19:36] LABS: ALBUMIN 3.8 g/dL (3.2-5.5); ALBUMIN/GLOBULIN RATIO 1.2 (1.0-2.2); BILIRUBIN,TOTAL 0.9 mg/dL (0.2-1.0); CALCIUM 8.6 mg/dL (8.5-10.3); CREATININE 1.5 mg/dL (0.6-1.2); POTASSIUM 4.4 mmol/L (3.5-5.0)
[2021-06-29 19:38] LABS: INR 1.9 (0.8-1.2); PT - PROTHROMBIN TIME 20.6 secs (9.9-12.6)
[2021-06-29] MEDS ORDERED: ONDANSETRON ODT 4 MG TABLET TL PRN (19:51)
[2021-06-29] MEDS ORDERED: PROCHLORPERAZINE 10 MG/2 ML VIAL IVP PRN (19:51)
[2021-06-29] MEDS ORDERED: ACETAMINOPHEN 325 MG TABLET PO PRN (19:51)
[2021-06-29] MEDS ORDERED: ONDANSETRON 4 MG/2 ML VIAL IVP PRN (19:51)
[2021-06-29] MEDS ORDERED: METOPROLOL TARTRATE 50 MG TABLET PO STA (19:58)
--- NOTE | 2021-06-29 20:04 | HISTORY & PHYSICAL EXAMINATION ---
Chief Complaint - Chief Complaint Chief Complaint: short of breath History of Present Illness - Admitted From Admitted From:: home - History Obtained From Records Reviewed: [facility] and [facility] History obtained from: patient and Dr. 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 He also has high blood pressure, hyperlipidemia, and hypothyroidism. He presented to the emergency room on June 27 with fever, body aches, dry cough. He is unvaccinated.He has avoided a lot of socialization over the last year. States he does wear a mask in public. The last large public event he was at was the [employer] a week ago. He was feeling weak and dehydrated and was not eating very much. No emesis. Was having occasional diarrhea. In the emergency room he was 94 to 95 percent on room air. Heart rate was 59. And chest x-ray had mild bilateral patchy airspace opacity. COVID-19 positive. The risk and benefits of monoclonal antibody therapy were discussed. He declined that therapy. Today he became more short of breath. Could not stop coughing and went to [facility]. [facility] emergency room saw him and stated that his oxygenation was not low enough to be admitted and sent him home. Once home today, he could not get his O2 sats above 90 percent and as such he came to our emergency room again. Temperature is 37.2. Heart rate 61. Respiration 19. Blood pressure 139/87. He is 88 percent on room air. He is a middle-aged toxic appearing white male with a nonstop dry cough. Moist oral mucosa. Clear lungs. Sodium is 133. BUN 25. Creatinine 1.5. Baseline creatinine is usually 1.0-1.3. C-reactive prot ein is 7.8. Lactic acid 1.4. White cell count is low at 4.6. Hemoglobin 15.2. Chest x-ray shows worsening bilateral patchy infiltrates. He is now admitted for COVID-19 pneumonia. History - Past Medical History Cardiovascular: reports: Hypertension, High cholesterol, Atrial fibrillation (ECHO 03/27 w nml LVEF, nml atria size, no valve disease) Respiratory: reports: Sleep apnea (with hypersomnia), CPAP use Endocrine/Autoimmune: reports: HyPOthyroidism GI: reports: GERD (w dysphagia. EGD 02/27), Colon polyps, C.difficile (chari/tachy w nml Echo 2005. Pacer put in bc of chari), Other (globus hystericus. 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 Mom age 86 of CHF. one half sister he is not in contact with. 3 children are healthy without HTN, DM, cancer, thryoid disease Living arrangement: At home Living Situation: With spouse/s.o. Social History Notes: started smoking age 16 and quit smoking 1992 of <1 ppd. No alcohol abuse. With his first he had 1 child. They are . a second and has had 2 children with her. 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 He is retired from that job as well. He has no history of recreational substance abuse. - Substance History Use: Uses substance without health or social issues: NONE Abuse: Recurrent use of substance despite neg consequences: NONE Dependence: Experiences withdrawal or developed tolerances: NONE - POLST Patient has POLST: No POLST Status: Full Code Meds/Allgy - Home Medications Home Medications: Ambulatory Orders Medication Instructions Recorded Confirmed Amox/Clav 875/125 [Augmentin] 1 each PO Q12H #14 tab 01/05/21 Apixaban [Eliquis] 5 mg PO BID 01/05/21 01/05/21 Flecainide [Tambocar] 100 mg PO PRN PRN 01/05/21 01/05/21 Levothyroxine Sodium [Synthroid] 162 mcg PO DAILY 01/05/21 01/05/21 Metoprolol Tartrate [Lopressor] 50 mg PO PRN PRN 01/05/21 01/05/21 Tamsulosin HCl [Flomax] 0.4 mg PO DAILY 01/05/21 01/05/21 - Allergies Allergies/Adverse Reactions: Allergies Allergy/AdvReac Type Severity Reaction Status Date / Time No Known Drug Allergies Allergy Verified 01/05/21 18:28 Review of Systems - Constitutional Constitutional: reports: Fatigue, Fever, Chills, Malaise, Weakness, Poor appetite, Diaphoresis, Night sweats, Other (Prior to Covid, he has daytime fatigue, easy somnolence) - Eyes Eyes: denies: Pain, Irritation, Amaurosis, Blurred vision, Vision loss - Ears, Nose & Throat Ears, Nose & Throat: reports: Vertigo (in the past on occasion, not now), Nasal congestion, Sore throat, Hoarseness. denies: Hearing loss, Hearing aids - Cardiovascular Cariovascular: reports: Exertional dyspnea, Decr. exercise tolerance. denies: Palpitations, Chest pain, Edema, Syncope - Respiratory Respiratory: reports: Cough, Snoring, SOB at rest, SOB with exertion, Apnea. denies: Sputum production, Wheezing - Gastrointestinal Gastrointestinal: reports: Diarrhea. denies: Abdominal pain, Abdominal distention, Constipation - Genitourinary Genitourinary: reports: Hematuria. denies: Dysuria, Frequency, Urgency, Incontinence, Flank pain - Musculoskeletal Musculoskeletal: reports: Back pain, Muscle aches, Joint pain - Integumentary Integumentary: denies: Rash, Pruritis, Lesions, Dryness - Neurological Neurological: reports: General weakness, Headache. denies: Focal weakness, Dizziness, Memory problems, Pre-existing deficit, Abnormal gait - Psychiatric Psychiatric: denies: Depression, Anxiety, Suicidal - Endocrine Endocrine: denies: Polyuria, Polydypsia, Polyphagia - Hematologic/Lymphatic Hematologic/Lymphatic: denies: Anemia, Bruising, Petechiae Prior Level of Functionality: Lives in his own home independently. Does not use any durable medical equipmen t. When he is not ill he is able to complete all of his activities of daily living. Drives a car. 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 Pays the bills. Exam - Vital Signs Reviewed Vital Signs: Yes Vital Signs: Vital Signs x48h Temp Pulse Resp BP Pulse Ox 06/29/21 18:15 60 24 90 L 06/29/21 17:52 37.2 C 61 19 139/87 H 88 L - Physical Exam General Appearance: positive: Alert, Mild distress (Generalized aches, feels miserable, and has a nonstop dry cough) Eyes Bilateral: positive: PERRL, EOMI ENT: positive: No signs of dehydration Neck: positive: No JVD, Lymphadenopathy (R), Lymphadenopathy (L). negative: Stiff neck Respiratory: positive: No respiratory distress. negative: Wheezes, Rales, Rhonchi Cardiovascular: positive: Regular rate & rhythm. negative: Systolic murmur, Gallop/S4, Friction rub Peripheral Pulses: positive: 1+ Abdomen: positive: Non-tender, No organomegaly, Nml bowel sounds, No distention Skin: positive: Color nml, No rash, Warm, Dry Extremities: positive: Full ROM, No pedal edema Neurologic/Psychiatric: positive: Oriented x3, CN's nml (2-12), Motor nml, Sensation nml Conclusion/Plan - Problem List (1) COVID-19 Conclusion/Plan: The disease progress and natural course were discussed with the patient. He has now been ill for close to 6 or 7 days and is entering the second week. He is requiring more oxygenation. Treatment for COVID-19 was discussed. At this point the inpatient side of treatment consist of remdesivir and Decadron. There has been recent approval of monoclonal antibody for the inpatient side but our pharmacy has not moved in that direction yet. Pharmacy also does not come in after hours for remdesivir and will mix it tomorrow. Patient states that if he has to be intubated he agrees to that. Plan: Inpatient status Oxygenation to maintain O2 sats greater than 92 percent Remdesivir 200 mg day 1 and 100 mg day 2 through 5. Decadron 6 mg daily Since he is on Eliquis for his hx of afib, will not use lovenox Creactive protein daily (2) Hypoxia Conclusion/Plan: Due to viral pneumonia. Currently patient is on nasal cannula oxygen. I did discuss high flow nasal oxygen, BiPAP, and intubation if he requires more or more oxygen. (3) Acute kidney insufficiency Conclusion/Plan: Baseline creatinine is 1.0. He states he has had decreased p.o. intake. Oral mucosa is still moist and pink. Nevertheless suspect there is some evidence of dehydration. Plan: I explained to him that I am to be giving him a liter of fluid a day. We will recheck his BUN and creatinine in the morning. If his BUN and creatinine come down to normal, and he is maintaining adequate fluid intake, we can stop the IV fluids. (4) HTN (hypertension) Conclusion/Plan: Currently blood pressure has a systolic of 1251 30. At home he takes metoprolol. That will be resumed. He states that he is "being weaned off" and will be off of it down the road. Qualifiers: Hypertension type: primary hypertension Qualified Code(s): I10 - Essential (primary) hypertension (5) Decreased urine stream Conclusion/Plan: not diagnosed with BPH yet. Is on flomax at home. Will resumehere. (6) Hypothyroid Conclusion/Plan: check TSH in am and resume ususal home meds. (7) History of atrial fibrillation Conclusion/Plan: Flecainide, metoprolol, Eliquis. He states that his offset printing pressmen is in the process of "weaning him off" his pills. In the meantime he will Be kept on metoprolol, - Lab Results Lab results reviewed: Yes Lucas Bones: 06/29/21 19:08 06/29/21 19:08 - Diagnostic Imaging Results Diagnostic Imaging Results: positive: Final report reviewed (From June 27, chest x-ray reviewed) - EKG Results EKG Interpreted Independently: No Core Measures - Anticipated LOS I expect patient to be DC'd or transferred within 96 hours.: Yes - DVT/VTE - Prophylaxis VTE/DVT Device ordered at admit?: Yes
--- NOTE | 2021-06-29 20:05 | XRAY Report ---
PROCEDURE: Chest 1 View X-Ray INDICATIONS: hypoxia, covid + TECHNIQUE: One view of the chest was acquired. COMPARISON: 06/27/2021 FINDINGS: Surgical changes and devices: Dual-lead left-sided pacemaker. Left humeral head bone anchors.. Lungs and pleura: Persistent peripheral patchy bilateral alveolar opacities without significant campos e. No new pleural effusion or pneumothorax. Mediastinum: Mediastinal contours appear normal. Heart size is normal. Bones and chest wall: No suspicious bony lesions. Overlying soft tissues appear unremarkable. IMPRESSION: Fairly stable extent of bilateral peripheral alveolar opacities consistent with viral pneumonitis. Reviewed by: Kerry Antoine MD on 06/29/2021 8:03 PM PDT Approved by: Kerry Antoine MD on 06/29/2021 8:03 PM PDT Station ID: [id number]
[2021-06-29] MEDS: APIXABAN 5 MG TABLET PO SCH (20:47)
[2021-06-29] MEDS: TAMSULOSIN 0.4 MG CAPSULE PO STA (20:47)
[2021-06-29] MEDS: SODIUM CHLORIDE 0.9% 1,000 ML IV SCH (20:50)
[2021-06-29] MEDS ORDERED: REMDESIVIR 100MG VIAL 200 MG in SODIUM CHLORIDE 0.9% 250 ML IV ONE (21:00)
[2021-06-30] MEDS: guaiFENesin/CODEINE 5 ML UDC PO PRN ×2 (01:15→09:28)
[2021-06-30] MEDS: SODIUM CHLORIDE FLUSH 0.9% 10 ML SYRINGE IVP SCH ×3 (03:33→17:31)
[2021-06-30] MEDS: SODIUM CHLORIDE 0.9% 1,000 ML IV SCH ×2 (06:35→17:31)
[2021-06-30] MEDS: LEVOTHYROXINE 125 MCG TABLET PO SCH (06:56)
[2021-06-30] MEDS: LEVOTHYROXINE 25 MCG TABLET PO SCH (06:56)
[2021-06-30] MEDS ORDERED: NON FORMULARY MED (Remdesivir 200 MG) IVP SCH (08:00)
[2021-06-30] MEDS ORDERED: REMDESIVIR 100MG VIAL 200 MG in SODIUM CHLORIDE 0.9% 250 ML IV ONE (09:00)
[2021-06-30] MEDS ORDERED: ENOXAPARIN 40 MG/0.4 ML SYRINGE SUBQ SCH (09:00)
[2021-06-30] MEDS: BENZOCAINE/MENTHOL LOZENGE MM PRN (09:28)
[2021-06-30] MEDS: APIXABAN 5 MG TABLET PO SCH ×2 (09:28→21:03)
[2021-06-30] MEDS: DEXAMETHASONE 10 MG/ML VIAL IVP SCH (09:28)
--- NOTE | 2021-06-30 10:55 | PHARMACY PROGRESS NOTE ---
- Best Possible Medication History Admit Date and Time: 06/29/211950 Processed by: Pharmacy Medication History completed: Yes Patient Interview: Completed Secondary Source(s): Spouse/Significant other (CALLED THE SPOUSE; SPOUSE ABLE TO CONFIRM HOME MEDICATIONS ), Physician records, Pharmacy records, Insurance records As the person ultimately responsible for medication therapy, providers are able to order a medication from an existing home medication list in [facility] via the "Reconcile Routine" prior to Confirmation of that medication by technical support specialist. Such practice is discouraged except when the physician, in their clinical judgment, deems that a medical need exists for a medication without regard to previous use.
[2021-06-30 11:53] LABS: HCT - HEMATOCRIT 37.4 % (42.0-52.0); HGB - HEMOGLOBIN 12.8 g/dL (14.0-18.0); LYMPHOCYTES # (AUTO) 0.8 10^3/uL (1.5-3.5); MEAN CORPUSCULAR HEMOGLOBIN 30.9 pg (27.0-31.0); MEAN CORPUSCULAR HGB CONC 34.2 g/dL (32.0-36.0); MEAN CORPUSCULAR VOLUME 90.3 fL (80.0-94.0); MEAN PLATELET VOLUME 9.9 fL (7.4-11.4); MONOCYTES # (AUTO) 0.2 10^3/uL (0.0-1.0); MONOCYTES % (AUTO) 4.6 %; NEUTROPHILS # (AUTO) 2.5 10^3/uL (1.5-6.6); NEUTROPHILS % (AUTO) 71.4 %; PLT - PLATELET COUNT 106 10^3/uL (130-450); RED BLOOD COUNT 4.14 10^6/uL (4.70-6.10); RED CELL DISTRIBUTION WIDTH 13.1 % (12.0-15.0); WHITE BLOOD COUNT 3.5 x10^3/uL (4.8-10.8)
[2021-06-30 12:03] LABS: CALCIUM 7.7 mg/dL (8.5-10.3); CREATININE 1.2 mg/dL (0.6-1.2); POTASSIUM 4.2 mmol/L (3.5-5.0)
--- NOTE | 2021-06-30 12:51 | PROVIDER PROGRESS NOTE ---
Subjective - Prog Note Date Prog Note Date: 06/30/21 - Subjective Subjective: He denies chest pain and does not feel short of breath at rest but does develop shortness of breath with any activity or when he has a cough. Feels like his appetite is a little improved today. Current Medications - Current Medications Current Medications: Active Medications Acetaminophen (Acetaminophen 325 Mg Tablet) 650 mg PO Q4HR PRN PRN Reason: Pain 1 to 4 Apixaban (Apixaban 5 Mg Tablet) 5 mg PO BID [facility] Last Admin: 06/30/21 09:28 Dose: 5 mg Documented by: Dexamethasone (Dexamethasone 10 Mg/Ml Vial) 6 mg IVP DAILY [facility] Stop: 07/09/21 09:01 Last Admin: 06/30/21 09:28 Dose: 6 mg Documented by: Guaifenesin/Codeine Phosphate (Guaifenesin/Codeine 5 Ml Udc) 5 ml PO Q6HR PRN PRN Reason: Cough Last Admin: 06/30/21 09:28 Dose: 5 ml Documented by: Sodium Chloride (Normal Saline 0.9%) 1,000 mls @ 100 mls/hr IV .Q10H [facility] Last Infusion: 06/30/21 11:30 Dose: 100 mls/hr Documented by: Remdesivir 100 mg/ Sodium (Chloride) 100 mls @ 200 mls/hr IV DAILY [facility] Stop: 07/04/21 09:29 Levothyroxine Sodium (Levothyroxine 125 Mcg Tablet) 125 mcg PO QDAC [facility] Last Admin: 06/30/21 06:56 Dose: 125 mcg Documented by: Levothyroxine Sodium (Levothyroxine 25 Mcg Tablet) 25 mcg PO QDAC [facility] Last Admin: 06/30/21 06:56 Dose: 25 mcg Documented by: Ondansetron HCl (Ondansetron Odt 4 Mg Tablet) 4 mg TL Q6HR PRN PRN Reason: Nausea / Vomiting Ondansetron HCl (Ondansetron 4 Mg/2 Ml Vial) 4 mg IVP Q6HR PRN PRN Reason: Nausea / Vomiting Oxycodone HCl (Oxycodone 5 Mg Tablet) 5 mg PO Q4HR PRN PRN Reason: Pain 5 to 7 Prochlorperazine Edisylate (Prochlorperazine 10 Mg/2 Ml Vial) 10 mg IVP Q6HR PRN PRN Reason: Nausea / Vomiting Sodium Chloride (Sodium Chloride Flush 0.9% 10 Ml Syringe) 10 ml IVP PRN PRN PRN Reason: NEEDED PER PROVIDER ORDERS Sodium Chloride (Sodium Chloride Flush 0.9% 10 Ml Syringe) 10 ml IVP 0100,0900,1700 [facility]BO[facility] Last Admin: 06/30/21 09:29 Dose: 10 ml Documented by: Throat Lozenges (Benzocaine/Menthol Lozenge) 1 lozenge MM Q2HR PRN PRN Reason: Throat pain Last Admin: 06/30/21 09:28 Dose: 1 lozenge Documented by: Apixaban [Eliquis] 5 mg PO BID 01/05/21 Flecainide [Tambocar] 100 mg PO BID 01/05/21 Levothyroxine Sodium [Synthroid] 175 mcg PO DAILY 01/05/21 Tamsulosin HCl [Flomax] 0.4 mg PO DAILY 01/05/21 Rosuvastatin Calcium [Crestor] 5 mg PO QPM 06/30/21 dilTIAZem HCL [Diltiazem 24Hr ER (Xr)] 180 mg PO DAILY 06/30/21 Objective - Vital Signs/Intake & Output Reviewed Vital Signs: Yes Vital Signs: Vital Signs Temp Pulse Resp BP Pulse Ox 06/30/21 12:30 37 C 59 L 20 126/69 96 06/30/21 11:49 93 06/30/21 11:06 92 06/30/21 11:03 88 L 06/30/21 11:00 86 L 06/30/21 10:43 96 Intake & Output: Intake & Output 06/27/21 06/28/21 06/29/21 06/30/21 23:59 23:59 23:59 23:59 Intake Total 1994 Balance 1994 - Objective General Appearance: positive: No acute distress, Alert Eyes Bilateral: positive: Normal inspection, Conjunctivae nml ENT: positive: ENT inspection nml, Other (Oxymizer in place.) Neck: positive: Nml inspection Respiratory: positive: No respiratory distress, Other (Faint rhonchi bilaterally.). negative: Wheezes, Rales Cardiovascular: positive: Regular rate & rhythm, No murmur. negative: Tachycardia, Systolic murmur Abdomen: positive: Non-tender, No distention. negative: Tenderness Skin: positive: Warm, Dry Extremities: positive: Full ROM, No pedal edema Neurologic/Psychiatric: positive: Motor nml. negative: Disoriented to person, Disoriented to place - Lab Results Fish Bones: 06/30/21 11:44 06/30/21 11:44 Other Labs: Lab Results x24hrs 06/30/21 06/30/21 06/29/21 Range/Units 11:44 11:44 19:08 WBC 3.5 L (4.8-10.8) x10^3/uL RBC 4.14 L (4.70-6.10) 10^6/uL Hgb 12.8 L (14.0-18.0) g/dL Hct 37.4 L (42.0-52.0) % MCV 90.3 (80.0-94.0) fL MCH 30.9 (27.0-31.0) pg MCHC 34.2 (32.0-36.0) g/dL RDW 13.1 (12.0-15.0) % Plt Count 106 L (130-450) 10^3/uL MPV 9.9 (7.4-11.4) fL Neut # (Auto) 2.5 (1.5-6.6) 10^3/uL Lymph # (Auto) 0.8 L (1.5-3.5) 10^3/uL Reeves # (Auto) 0.2 (0.0-1.0) 10^3/uL Eos # (Auto) 0.0 (0.0-0.7) 10^3/uL Baso # (Auto) 0.0 (0.0-0.1) 10^3/uL Absolute Nucleated RBC 0.00 x10^3/uL Nucleated RBC % 0.0 /100WBC PT (9.9-12.6) secs INR (0.8-1.2) D-Dimer (200.0-255.0) ng/mL Sodium 133 L (135-145) mmol/L Potassium 4.2 (3.5-5.0) mmol/L Chloride 106 (101-111) mmol/L Carbon Dioxide 19 L (21-32) mmol/L Anion Gap 8.0 (6-13) BUN 24 H (6-20) mg/dL Creatinine 1.2 (0.6-1.2) mg/dL Estimated GFR (MDRD) 59 L (>89) Glucose 113 H (70-100) mg/dL Lactic Acid (0.5-2.2) mmol/L Calcium 7.7 L (8.5-10.3) mg/dL Total Bilirubin (0.2-1.0) mg/dL AST (10-42) IU/L ALT (10-60) IU/L Alkaline Phosphatase (42-121) IU/L C-Reactive Protein 7.8 H (0-1.0) mg/dL Total Protein (6.7-8.2) g/dL Albumin (3.2-5.5) g/dL Globulin (2.1-4.2) g/dL Albumin/Globulin Ratio (1.0-2.2) 06/29/21 06/29/21 06/29/21 Range/Units 19:08 19:08 19:08 WBC (4.8-10.8) x10^3/uL RBC (4.70-6.10) 10^6/uL Hgb (14.0-18.0) g/dL Hct (42.0-52.0) % MCV (80.0-94.0) fL MCH (27.0-31.0) pg MCHC (32.0-36.0) g/dL RDW (12.0-15.0) % Plt Count (130-450) 10^3/uL MPV (7.4-11.4) fL Neut # (Auto) (1.5-6.6) 10^3/uL Lymph # (Auto) (1.5-3.5) 10^3/uL [place]eves # (Auto) (0.0-1.0) 10^3/uL Eos # (Auto) (0.0-0.7) 10^3/uL Baso # (Auto) (0.0-0.1) 10^3/uL Absolute Nucleated RBC x10^3/uL Nucleated RBC % /100WBC PT 20.6 H (9.9-12.6) secs INR 1.9 H (0.8-1.2) D-Dimer 241.4 (200.0-255.0) ng/mL Sodium 133 L (135-145) mmol/L Potassium 4.4 (3.5-5.0) mmol/L Chloride 98 L (101-111) mmol/L Carbon Dioxide 23 (21-32) mmol/L Anion Gap 12.0 (6-13) BUN 25 H (6-20) mg/dL Creatinine 1.5 H (0.6-1.2) mg/dL Estimated GFR (MDRD) 46 L (>89) Glucose 114 H (70-100) mg/dL Lactic Acid 1.4 (0.5-2.2) mmol/L Calcium 8.6 (8.5-10.3) mg/dL Total Bilirubin 0.9 (0.2-1.0) mg/dL AST 54 H (10-42) IU/L ALT 33 (10-60) IU/L Alkaline Phosphatase 100 (42-121) IU/L C-Reactive Protein (0-1.0) mg/dL Total Protein 7.0 (6.7-8.2) g/dL Albumin 3.8 (3.2-5.5) g/dL Globulin 3.2 (2.1-4.2) g/dL Albumin/Globulin Ratio 1.2 (1.0-2.2) 06/29/21 Range/Units 19:08 WBC 4.6 L (4.8-10.8) x10^3/uL RBC 5.01 (4.70-6.10) 10^6/uL Hgb 15.2 (14.0-18.0) g/dL Hct 44.8 (42.0-52.0) % MCV 89.4 (80.0-94.0) fL MCH 30.3 (27.0-31.0) pg MCHC 33.9 (32.0-36.0) g/dL RDW 13.0 (12.0-15.0) % Plt Count 122 L (130-450) 10^3/uL MPV 10.1 (7.4-11.4) fL Neut # (Auto) 3.3 (1.5-6.6) 10^3/uL Lymph # (Auto) 0.8 L (1.5-3.5) 10^3/uL [place]eves # (Auto) 0.4 (0.0-1.0) 10^3/uL Eos # (Auto) 0.0 (0.0-0.7) 10^3/uL Baso # (Auto) 0.0 (0.0-0.1) 10^3/uL Absolute Nucleated RBC 0.00 x10^3/uL Nucleated RBC % 0.0 /100WBC PT (9.9-12.6) secs INR (0.8-1.2) D-Dimer (200.0-255.0) ng/mL Sodium (135-145) mmol/L Potassium (3.5-5.0) mmol/L Chloride (101-111) mmol/L Carbon Dioxide (21-32) mmol/L Anion Gap (6-13) BUN (6-20) mg/dL Creatinine (0.6-1.2) mg/dL Estimated GFR (MDRD) (>89) Glucose (70-100) mg/dL Lactic Acid (0.5-2.2) mmol/L Calcium (8.5-10.3) mg/dL Total Bilirubin (0.2-1.0) mg/dL AST (10-42) IU/L ALT (10-60) IU/L Alkaline Phosphatase (42-121) IU/L C-Reactive Protein (0-1.0) mg/dL Total Protein (6.7-8.2) g/dL Albumin (3.2-5.5) g/dL Globulin (2.1-4.2) g/dL Albumin/Globulin Ratio (1.0-2.2) Assessment/Plan - Problem List (1) Acute respiratory failure with hypoxia Impression: This is secondary to COVID-19 pneumonia. He is now requiring 11 L of oxygen via Oxymizer to maintain a saturation in the mid 90s. Does appear comfortable at rest but does desaturate with minimal activity. He has been on Decadron and remdesivir. We are holding off on antibiotics given lack of evidence of bacterial infection. We will continue supplemental oxygen for goal saturation greater than 92%. I once again discussed with him regarding goals of care and he is okay with mechanical ventilation if necessary. Given he is an increase in his oxygen requirements from 6 L, we will transfer him to intensive care unit for closer monitoring. I did contact his and update her on his clinical condition. All of her questions were answered. (2) COVID-19 Impression: This is the cause of his respiratory failure as mentioned above. Plan to continue Decadron and remdesivir. Continue contact precautions. (3) History of atrial fibrillation Impression: He is currently in a paced rhythm. He is status post ablation about 3 weeks ago at [place]. We will continue his home diltiazem, flecainide, Eliquis. (4) HTN (hypertension) Impression: His blood pressure is well controlled. We will continue with diltiazem. Qualifiers: Hypertension type: primary hypertension Qualified Code(s): I10 - Essential (primary) hypertension (5) Hypothyroid Impression: Continue Synthroid.
[2021-06-30] MEDS: ATORVASTATIN 10 MG TABLET PO SCH (21:03)
[2021-06-30] MEDS: FLECAINIDE 50 MG TABLET PO SCH (21:03)
[2021-07-01] MEDS: SODIUM CHLORIDE FLUSH 0.9% 10 ML SYRINGE IVP SCH ×3 (01:38→17:31)
[2021-07-01] MEDS: SODIUM CHLORIDE 0.9% 1,000 ML IV SCH ×3 (02:13→20:44)
[2021-07-01 05:51] LABS: HCT - HEMATOCRIT 39.7 % (42.0-52.0); HGB - HEMOGLOBIN 13.1 g/dL (14.0-18.0); LYMPHOCYTES % (AUTO) 25.8 %; MEAN CORPUSCULAR HEMOGLOBIN 30.2 pg (27.0-31.0); MEAN CORPUSCULAR VOLUME 91.5 fL (80.0-94.0); MEAN PLATELET VOLUME 9.6 fL (7.4-11.4); MONOCYTES % (AUTO) 10.8 %; NEUTROPHILS % (AUTO) 62.5 %; PLT - PLATELET COUNT 145 10^3/uL (130-450); RED BLOOD COUNT 4.34 10^6/uL (4.70-6.10); RED CELL DISTRIBUTION WIDTH 13.1 % (12.0-15.0); WHITE BLOOD COUNT 3.3 x10^3/uL (4.8-10.8)
[2021-07-01 05:53] LABS: ABNORMAL LYMPHS % (MANUAL) 0 %
[2021-07-01 06:03] LABS: BILIRUBIN,DIRECT 0.2 mg/dL (0.1-0.5); BILIRUBIN,TOTAL 0.8 mg/dL (0.2-1.0); CRP - C-REACTIVE PROTEIN 6.8 mg/dL (0-1.0); POTASSIUM 3.9 mmol/L (3.5-5.0); TOTAL PROTEIN 5.9 g/dL (6.7-8.2)
[2021-07-01 06:15] LABS: BAND NEUTROPHILS % (MANUAL) 2 %; DIFFERENTIAL COMMENT MANUAL DIFFERENTIAL; LYMPHOCYTES # (MANUAL) 1.1 10^3/uL (1.5-3.5); LYMPHOCYTES % (MANUAL) 34 %; MONOCYTES # (MANUAL) 0.3 10^3/uL (0.0-1.0); NEUTROPHILS # (MANUAL) 1.9 10^3/uL (1.5-6.6); PLATELET ESTIMATE, MANUAL NORMAL (130-450,000) (NORMAL); RBC MORPHOLOGY (MULTIPLE) NORMAL APPEARANCE (NORMAL)
[2021-07-01 06:20] LABS: MAGNESIUM 2.2 mg/dL (1.7-2.8); PHOSPHORUS 3.2 mg/dL (2.5-4.6)
[2021-07-01] MEDS: LEVOTHYROXINE 25 MCG TABLET PO SCH (06:34)
[2021-07-01] MEDS: LEVOTHYROXINE 125 MCG TABLET PO SCH (06:34)
[2021-07-01] MEDS: REMDESIVIR 100MG VIAL 100 MG in SODIUM CHLORIDE 0.9% 100ML 100 ML IV SCH (08:29)
[2021-07-01] MEDS: diltiaZEM CD 180 MG CAPSULE PO SCH (08:30)
[2021-07-01] MEDS: FLECAINIDE 50 MG TABLET PO SCH ×2 (08:30→20:44)
[2021-07-01] MEDS: CHOLECALCIFEROL 25 MCG TABLET PO SCH (08:30)
[2021-07-01] MEDS: TAMSULOSIN 0.4 MG CAPSULE PO SCH (08:31)
[2021-07-01] MEDS: APIXABAN 5 MG TABLET PO SCH ×2 (08:31→20:44)
[2021-07-01] MEDS: DEXAMETHASONE 10 MG/ML VIAL IVP SCH (08:31)
[2021-07-01] MEDS: LACTOBACILLUS RHAMNOSUS GG CAPSULE PO SCH (17:30)
--- NOTE | 2021-07-01 19:28 | PROVIDER PROGRESS NOTE ---
Assessment/Plan - Problem List (1) Acute respiratory failure with hypoxia Assessment/Plan: Secondary to COVID-19 pneumonia. Patient is currently on 15 L of oxygen via Oxymizer with oxygen saturation between 90 and 94%. He appears comfortable but very fatigued. Continue Decadron and remdesivir. Continue to hold off on antibiotics. Continue treatment in the ICU. Based on previous conversations with my colleague Dr. Macedo, the patient is agreeable to him mechanical ventilation if indicated. (2) COVID-19 Assessment/Plan: On Decadron and remdesivir. (3) History of atrial fibrillation Assessment/Plan: Currently in a paced rhythm. He underwent ablation about 3 weeks ago in [place]. Continue diltiazem, flecainide and Eliquis. (4) HTN (hypertension) Qualifiers: Hypertension type: primary hypertension Qualified Code(s): I10 - Essential (primary) hypertension Assessment/Plan: Continue diltiazem. (5) Hypothyroid Assessment/Plan: Continue Synthroid - Current Meds Current Meds: Current Medications Generic Name Dose Route Start Last Admin Trade Name Freq PRN Reason Stop Dose Admin Apixaban 5 mg 06/29/21 21:00 07/01/21 08:31 Apixaban 5 Mg Tablet PO 5 mg BID ZENOBIA Administration Atorvastatin Calcium 10 mg 06/30/21 21:00 06/30/21 21:03 Atorvastatin 10 Mg Tablet PO 10 mg QPM ZENOBIA Administration Cholecalciferol 50 mcg 07/01/21 09:00 07/01/21 08:30 Cholecalciferol 25 Mcg Tablet PO 50 mcg DAILY [facility]EN[facility] Administration Dexamethasone 6 mg 06/30/21 09:00 07/01/21 08:31 Dexamethasone 10 Mg/Ml Vial IVP 07/09/21 09:01 6 mg DAILY [facility]ENOBIA Administration Diltiazem HCl 180 mg 07/01/21 09:00 07/01/21 08:30 Diltiazem Cd 180 Mg Capsule PO 180 mg DAILY [facility] Administration Flecainide Acetate 100 mg 06/30/21 21:00 07/01/21 08:30 Flecainide 50 Mg Tablet PO 100 mg BID [facility] Administration Guaifenesin/Codeine Phosphate 5 ml 06/29/21 21:34 06/30/21 09:28 Guaifenesin/Codeine 5 Ml Udc PO 5 ml Q6HR PRN Administration Cough Sodium Chloride 1,000 mls @ 100 mls/hr 06/29/21 20:00 07/01/21 14:08 Normal Saline 0.9% IV 100 mls/hr .Q10H [facility] Administration Remdesivir 100 mg/ Sodium 100 mls @ 200 mls/hr 07/01/21 09:00 07/01/21 09:00 Chloride IV 07/04/21 09:29 Infused DAILY [facility] Infusion Lactobacillus Rhamnosus 1 cap 07/01/21 16:00 07/01/21 17:30 Lactobacillus Rhamnosus Gg Capsule PO Not Given DAILY [facility] Levothyroxine Sodium 125 mcg 06/30/21 07:00 07/01/21 06:34 Levothyroxine 125 Mcg Tablet PO 125 mcg QDAC [facility] Administration Levothyroxine Sodium 25 mcg 06/30/21 07:00 07/01/21 06:34 Levothyroxine 25 Mcg Tablet PO 25 mcg QDAC [facility] Administration Sodium Chloride 10 ml 06/30/21 01:00 07/01/21 17:31 Sodium Chloride Flush 0.9% 10 Ml Syringe IVP 10 ml 0100,0900,1700 ZENOB[facility] Administration Tamsulosin HCl 0.4 mg 07/01/21 09:00 07/01/21 08:31 Tamsulosin 0.4 Mg Capsule PO 0.4 mg DAILY [facility] Administration Throat Lozenges 1 lozenge 06/30/21 02:24 06/30/21 09:28 Benzocaine/Menthol Lozenge MM 1 lozenge Q2HR PRN Administration Throat pain - Lab Result Fish Bone Diagrams: 07/01/21 05:35 07/01/21 05:35 Subjective - Subjective Patient Reports: Other (Resting comfortably in bed. Reports feeling better today. Reports improvement in breathing. Appears fatigued. Significantly weak with the slightest exertion. Reports diarrhea with each attempt at urination.) Objective Vital Signs: Vital Signs - 24 hr 06/30/21 06/30/21 06/30/21 19:42 20:00 21:00 Temperature 36.6 C 36.6 C Heart Rate [ 61 60 Brachial] Respiratory 16 16 Rate Blood Pressure 134/73 H [Left Brachial artery] O2 Saturation 95 93 06/30/21 06/30/21 07/01/21 22:00 23:00 00:00 Temperature Heart Rate [ 60 67 60 Brachial] Respiratory 19 22 16 Rate Blood Pressure 113/68 142/70 H 120/68 [Left Brachial artery] O2 Saturation 93 93 94 07/01/21 07/01/21 07/01/21 01:00 02:00 03:00 Temperature 36.6 C Heart Rate [ 60 60 60 Brachial] Respiratory 15 19 15 Rate Blood Pressure 123/65 155/72 H 145/82 H [Left Brachial artery] O2 Saturation 95 91 L 94 07/01/21 07/01/21 07/01/21 04:00 05:00 06:00 Temperature Heart Rate [ 60 60 60 Brachial] Respiratory 14 16 18 Rate Blood Pressure 139/73 H 155/41 H 113/90 H [Left Brachial artery] O2 Saturation 87 L 96 96 07/01/21 07/01/21 07/01/21 07:00 07:10 08:00 Temperature Heart Rate [ 60 60 60 Brachial] Respiratory 15 15 18 Rate Blood Pressure 139/74 H 129/79 [Left Brachial artery] O2 Saturation 95 96 92 07/01/21 07/01/21 07/01/21 09:00 10:00 11:00 Temperature 36.8 C Heart Rate [ 60 60 60 Brachial] Respiratory 16 20 15 Rate Blood Pressure 141/61 H 145/62 H 130/68 [Left Brachial artery] O2 Saturation 94 97 94 07/01/21 07/01/21 07/01/21 12:00 13:00 14:00 Temperature Heart Rate [ 60 60 60 Brachial] Respiratory 15 19 17 Rate Blood Pressure 153/52 H 137/69 H 149/72 H [Left Brachial artery] O2 Saturation 98 95 94 07/01/21 07/01/21 07/01/21 15:00 16:00 17:45 Temperature Heart Rate [ 60 60 64 Brachial] Respiratory 22 15 22 Rate Blood Pressure 125/111 H 107/62 [Left Brachial artery] O2 Saturation 95 95 89 L 07/01/21 07/01/21 18:00 19:00 Temperature 36.6 C Heart Rate [ 60 65 Brachial] Respiratory 15 14 Rate Blood Pressure 126/60 127/60 [Left Brachial artery] O2 Saturation 92 95 Oxygen O2 Source Oxymizer Oxygen Flow Rate 2 I&O (Last 24 Hrs): Intake and Output Totals x24h 06/29/21 06/30/21 07/01/21 23:59 23:59 23:59 Intake Total 205 2736.667 2503.333 Output Total 275 575 Balance 205 2461.667 1928.333 General: Alert, Oriented x3, Other (weak/fatigued) HEENT: PERRLA, EOMI Neck: Supple, No JVD Neuro: Alert, Non Focal, Oriented Times 3 Cardiovascular: Regular rate (paced) Respiratory: Chest non-tender, Wheezes (on left lung), Other (mild crackles on right lung) Abdomen: Normal bowel sounds, Soft Extremities: No clubbing, No cyanosis, No edema Skin: No rashes, No breakdown, No significant lesion - Results Results: Laboratory Results WBC 3.3 x10^3/uL (4.8-10.8) L 07/01/21 05:35 RBC 4.34 10^6/uL (4.70-6.10) L 07/01/21 05:35 Hgb 13.1 g/dL (14.0-18.0) L 07/01/21 05:35 Hct 39.7 % (42.0-52.0) L 07/01/21 05:35 MCV 91.5 fL (80.0-94.0) 07/01/21 05:35 MCH 30.2 pg (27.0-31.0) 07/01/21 05:35 MCHC 33.0 g/dL (32.0-36.0) 07/01/21 05:35 RDW 13.1 % (12.0-15.0) 07/01/21 05:35 Plt Count 145 10^3/uL (130-450) 07/01/21 05:35 MPV 9.6 fL (7.4-11.4) 07/01/21 05:35 Neut # (Auto) Not Reportable 07/01/21 05:35 Lymph # (Auto) Not Reportable 07/01/21 05:35 [place] # (Auto) Not Reportable 07/01/21 05:35 Eos # (Auto) Not Reportable 07/01/21 05:35 Baso # (Auto) Not Reportable 07/01/21 05:35 Absolute Nucleated RBC Not Reportable 07/01/21 05:35 Total Counted 100 07/01/21 05:35 Band Neuts % (Manual) 2 % (0-10) 07/01/21 05:35 Abnorm Lymph % (Manual) 0 % 07/01/21 05:35 Nucleated RBC % Not Reportable 07/01/21 05:35 Neutrophils # (Manual) 1.9 10^3/uL (1.5-6.6) 07/01/21 05:35 Lymphocytes # (Manual) 1.1 10^3/uL (1.5-3.5) L 07/01/21 05:35 Monocytes # (Manual) 0.3 10^3/uL (0.0-1.0) 07/01/21 05:35 Eosinophils # (Manual) 0.0 10^3/uL (0-0.7) 07/01/21 05:35 Basophils # (Manual) 0.0 10^3/uL (0-0.1) 07/01/21 05:35 Differential Comment MANUAL DIFFERENTIAL 07/01/21 05:35 Platelet Estimate NORMAL (130-450,000) (NORMAL) 07/01/21 05:35 RBC Morph Micro Appear NORMAL APPEARANCE (NORMAL) 07/01/21 05:35 PT 20.6 secs (9.9-12.6) H 06/29/21 19:08 INR 1.9 (0.8-1.2) H 06/29/21 19:08 D-Dimer 241.4 ng/mL (200.0-255.0) 06/29/21 19:08 Sodium 135 mmol/L (135-145) 07/01/21 05:35 Potassium 3.9 mmol/L (3.5-5.0) 07/01/21 05:35 Chloride 106 mmol/L (101-111) 07/01/21 05:35 Carbon Dioxide 19 mmol/L (21-32) L 07/01/21 05:35 Anion Gap 10.0 (6-13) 07/01/21 05:35 BUN 25 mg/dL (6-20) H 07/01/21 05:35 Creatinine 1.0 mg/dL (0.6-1.2) 07/01/21 05:35 Estimated GFR (MDRD) 73 (>89) L 07/01/21 05:35 Glucose 134 mg/dL (70-100) H 07/01/21 05:35 Lactic Acid 1.4 mmol/L (0.5-2.2) 06/29/21 19:08 Calcium 8.0 mg/dL (8.5-10.3) L 07/01/21 05:35 Phosphorus 3.2 mg/dL (2.5-4.6) 07/01/21 05:35 Magnesium 2.2 mg/dL (1.7-2.8) 07/01/21 05:35 Total Bilirubin 0.8 mg/dL (0.2-1.0) 07/01/21 05:35 Direct Bilirubin 0.2 mg/dL (0.1-0.5) 07/01/21 05:35 AST 79 IU/L (10-42) H 07/01/21 05:35 ALT 58 IU/L (10-60) 07/01/21 05:35 Alkaline Phosphatase 87 IU/L (42-121) 07/01/21 05:35 C-Reactive Protein 6.8 mg/dL (0-1.0) H 07/01/21 05:35 Total Protein 5.9 g/dL (6.7-8.2) L 07/01/21 05:35 Albumin 3.0 g/dL (3.2-5.5) L 07/01/21 05:35 Globulin 2.9 g/dL (2.1-4.2) 07/01/21 05:35 Albumin/Globulin Ratio 1.2 (1.0-2.2) 06/29/21 19:08 Nasal Screen MRSA (PCR) NEGATIVE (NEGATIVE) 06/30/21 17:05 ABX Reporting Has patient been on IV antibiotics over the past 48 hours?: No
[2021-07-01] MEDS: ATORVASTATIN 10 MG TABLET PO SCH (20:44)
[2021-07-02] MEDS: SODIUM CHLORIDE FLUSH 0.9% 10 ML SYRINGE IVP SCH ×3 (01:30→17:00)
[2021-07-02 06:09] LABS: BASOPHILS % (AUTO) 0.1 %; HCT - HEMATOCRIT 39.8 % (42.0-52.0); HGB - HEMOGLOBIN 13.2 g/dL (14.0-18.0); LYMPHOCYTES # (AUTO) 1.1 10^3/uL (1.5-3.5); LYMPHOCYTES % (AUTO) 15.9 %; MEAN CORPUSCULAR HEMOGLOBIN 30.4 pg (27.0-31.0); MEAN CORPUSCULAR HGB CONC 33.2 g/dL (32.0-36.0); MEAN CORPUSCULAR VOLUME 91.7 fL (80.0-94.0); MEAN PLATELET VOLUME 9.5 fL (7.4-11.4); MONOCYTES # (AUTO) 0.6 10^3/uL (0.0-1.0); NEUTROPHILS # (AUTO) 5.3 10^3/uL (1.5-6.6); NEUTROPHILS % (AUTO) 74.3 %; PLT - PLATELET COUNT 173 10^3/uL (130-450); RED BLOOD COUNT 4.34 10^6/uL (4.70-6.10); RED CELL DISTRIBUTION WIDTH 13.2 % (12.0-15.0); WHITE BLOOD COUNT 7.1 x10^3/uL (4.8-10.8)
[2021-07-02 06:26] LABS: BILIRUBIN,DIRECT 0.2 mg/dL (0.1-0.5); BILIRUBIN,TOTAL 0.7 mg/dL (0.2-1.0); CALCIUM 8.3 mg/dL (8.5-10.3); CREATININE 0.9 mg/dL (0.6-1.2); CRP - C-REACTIVE PROTEIN 3.5 mg/dL (0-1.0); MAGNESIUM 2.1 mg/dL (1.7-2.8); PHOSPHORUS 2.5 mg/dL (2.5-4.6); POTASSIUM 4.1 mmol/L (3.5-5.0); TOTAL PROTEIN 5.8 g/dL (6.7-8.2)
[2021-07-02 06:46] LABS: DIFFERENTIAL COMMENT MANUAL=AUTO DIFF; PLATELET ESTIMATE, MANUAL NORMAL (130-450,000) (NORMAL); RBC MORPHOLOGY (MULTIPLE) NORMAL APPEARANCE (NORMAL)
[2021-07-02] MEDS: LEVOTHYROXINE 25 MCG TABLET PO SCH (06:51)
[2021-07-02] MEDS: LEVOTHYROXINE 125 MCG TABLET PO SCH (06:51)
[2021-07-02] MEDS: SODIUM CHLORIDE 0.9% 1,000 ML IV SCH ×2 (06:51→17:01)
[2021-07-02] MEDS: APIXABAN 5 MG TABLET PO SCH ×2 (08:09→20:07)
[2021-07-02] MEDS: CHOLECALCIFEROL 25 MCG TABLET PO SCH (08:11)
[2021-07-02] MEDS: diltiaZEM CD 180 MG CAPSULE PO SCH (08:13)
[2021-07-02] MEDS: TAMSULOSIN 0.4 MG CAPSULE PO SCH (08:13)
[2021-07-02] MEDS: FLECAINIDE 50 MG TABLET PO SCH ×2 (08:14→20:07)
[2021-07-02] MEDS: LACTOBACILLUS RHAMNOSUS GG CAPSULE PO SCH (08:14)
[2021-07-02] MEDS: DEXAMETHASONE 10 MG/ML VIAL IVP SCH (08:16)
[2021-07-02] MEDS: REMDESIVIR 100MG VIAL 100 MG in SODIUM CHLORIDE 0.9% 100ML 100 ML IV SCH (09:50)
--- NOTE | 2021-07-02 18:32 | PROVIDER PROGRESS NOTE ---
Assessment/Plan - Problem List (1) Acute respiratory failure with hypoxia Assessment/Plan: He was on Oxymizer at 15 L for the last 1 day, when he needed transfer into the ICU. Today he desaturates even on 15 L and RT has just transitioned him to high flow at 40 L. Continue with supplemental O2, titrating to keep sats over 88%. I discussed with the patient possible next steps of using BiPAP then ventilator and transfer to a higher level of care hospital, if necessary (2) COVID-19 Assessment/Plan: He is getting remdesivir, IV Decadron and supplemental oxygen. He has a cough which is productive of minimal sputum. Continue with the above management and respiratory isolation. There is no further diarrhea (3) History of atrial fibrillation Assessment/Plan: Currently in atrial paced rhythm. He underwent ablation about 3 weeks ago in [facility]. Continue diltiazem, flecainide and Eliquis. (4) HTN (hypertension) Qualifiers: Hypertension type: primary hypertension Qualified Code(s): I10 - Essential (primary) hypertension Assessment/Plan: Continue diltiazem. (5) Hypothyroid Assessment/Plan: Continue Synthroid, will check his TSH regarding proper dosing. - Current Meds Current Meds: Current Medications Generic Name Dose Route Start Last Admin Trade Name Freq PRN Reason Stop Dose Admin Apixaban 5 mg 06/29/21 21:00 07/02/21 08:09 Apixaban 5 Mg Tablet PO 5 mg BID ZENOBIA Administration Atorvastatin Calcium 10 mg 06/30/21 21:00 07/01/21 20:44 Atorvastatin 10 Mg Tablet PO 10 mg QPM ZENOBIA Administration Cholecalciferol 50 mcg 07/01/21 09:00 07/02/21 08:11 Cholecalciferol 25 Mcg Tablet PO 50 mcg DAILY ZENOBIA Administration Dexamethasone 6 mg 06/30/21 09:00 07/02/21 08:16 Dexamethasone 10 Mg/Ml Vial IVP 07/09/21 09:01 6 mg DAILY ZENOBIA Administration Diltiazem HCl 180 mg 07/01/21 09:00 07/02/21 08:13 Diltiazem Cd 180 Mg Capsule PO 180 mg DAILY ZENOBIA Administration Flecainide Acetate 100 mg 06/30/21 21:00 07/02/21 08:14 Flecainide 50 Mg Tablet PO 100 mg BID ZENOBIA Administration Guaifenesin/Codeine Phosphate 5 ml 06/29/21 21:34 06/30/21 09:28 Guaifenesin/Codeine 5 Ml Udc PO 5 ml Q6HR PRN Administration Cough Sodium Chloride 1,000 mls @ 100 mls/hr 06/29/21 20:00 07/02/21 17:01 Normal Saline 0.9% IV 100 mls/hr .Q10H ZENOBIA Administration Remdesivir 100 mg/ Sodium 100 mls @ 200 mls/hr 07/01/21 09:00 07/02/21 10:20 Chloride IV 07/04/21 09:29 Infused DAILY ZENOBIA Infusion Lactobacillus Rhamnosus 1 cap 07/01/21 16:00 07/02/21 08:14 Lactobacillus Rhamnosus Gg Capsule PO 1 cap DAILY ZENOBIA Administration Levothyroxine Sodium 125 mcg 06/30/21 07:00 07/02/21 06:51 Levothyroxine 125 Mcg Tablet PO 125 mcg QDAC ZENOBIA Administration Levothyroxine Sodium 25 mcg 06/30/21 07:00 07/02/21 06:51 Levothyroxine 25 Mcg Tablet PO 25 mcg QDAC ZENOBIA Administration Sodium Chloride 10 ml 06/30/21 01:00 07/02/21 08:14 Sodium Chloride Flush 0.9% 10 Ml Syringe IVP 10 ml 0100,0900,1700 ZENOBIA Administration Tamsulosin HCl 0.4 mg 07/01/21 09:00 07/02/21 08:13 Tamsulosin 0.4 Mg Capsule PO 0.4 mg DAILY ZENOBIA Administration Throat Lozenges 1 lozenge 06/30/21 02:24 06/30/21 09:28 Benzocaine/Menthol Lozenge MM 1 lozenge Q2HR PRN Administration Throat pain - Lab Result Fish Bone Diagrams: 07/02/21 04:49 07/02/21 04:49 Subjective - Subjective Patient Reports: Shortness of Breath (Feels air hunger when moves or after speaking a sentence) Nursing Reports: Other (Sats are 88% when he is dyspneic, despite suppl O2) Objective Vital Signs: Vital Signs - 24 hr 07/01/21 07/01/21 07/01/21 19:00 20:00 20:42 Temperature 36.6 C Heart Rate [ 65 60 60 Brachial] Respiratory 14 17 18 Rate Blood Pressure 127/60 144/69 H [Left Brachial artery] O2 Saturation 95 97 91 L 07/01/21 07/01/21 07/01/21 21:00 22:00 23:00 Temperature Heart Rate [ 60 60 60 Brachial] Respiratory 22 16 16 Rate Blood Pressure 132/70 H 124/71 126/56 L [Left Brachial artery] O2 Saturation 91 L 92 97 07/02/21 07/02/21 07/02/21 00:00 01:00 02:00 Temperature Heart Rate [ 60 60 60 Brachial] Respiratory 13 14 21 Rate Blood Pressure 139/69 H 135/71 H 139/68 H [Left Brachial artery] O2 Saturation 93 91 L 91 L 07/02/21 07/02/21 07/02/21 03:00 04:00 05:00 Temperature 36.5 C Heart Rate [ 60 60 60 Brachial] Respiratory 21 15 15 Rate Blood Pressure 120/61 114/67 137/69 H [Left Brachial artery] O2 Saturation 83 L 94 94 07/02/21 07/02/21 07/02/21 06:00 07:00 08:00 Temperature 36.5 C Heart Rate [ 72 60 60 Brachial] Respiratory 31 H 12 14 Rate Blood Pressure 112/55 L 144/70 H 145/70 H [Left Brachial artery] O2 Saturation 79 L 94 90 L 07/02/21 07/02/21 07/02/21 09:00 10:00 11:00 Temperature Heart Rate [ 60 71 60 Brachial] Respiratory 14 13 16 Rate Blood Pressure 128/72 104/60 148/72 H [Left Brachial artery] O2 Saturation 92 95 94 07/02/21 07/02/21 07/02/21 12:00 13:00 14:00 Temperature Heart Rate [ 60 63 60 Brachial] Respiratory 18 20 14 Rate Blood Pressure 160/69 H 151/66 H 158/72 H [Left Brachial artery] O2 Saturation 91 L 90 L 93 07/02/21 07/02/21 07/02/21 15:00 16:00 17:00 Temperature Heart Rate [ 60 60 60 Brachial] Respiratory 18 19 18 Rate Blood Pressure 152/68 H 169/69 H 158/72 H [Left Brachial artery] O2 Saturation 90 L 91 L 88 L Oxygen O2 Source Oxymizer Oxygen Flow Rate 2 I&O (Last 24 Hrs): Intake and Output Totals x24h 06/30/21 07/01/21 07/02/21 23:59 23:59 23:59 Intake Total 2736.667 3163.333 3387.000 Output Total 992 749 4596 Balance 2461.667 2288.333 912.000 General: Alert, Oriented x3 HEENT: Mucous membr. moist/pink, Other (Has high-flow O2 on) Neck: Supple, No JVD Neuro: Alert, Non Focal Cardiovascular: Regular rate, No murmurs Respiratory: Other (L side diminished breath sounds, R sided rhonchi) Extremities: No edema, No tenderness/swelling - Results Results: Laboratory Results WBC 7.1 x10^3/uL (4.8-10.8) 07/02/21 04:49 RBC 4.34 10^6/uL (4.70-6.10) L 07/02/21 04:49 Hgb 13.2 g/dL (14.0-18.0) L 07/02/21 04:49 Hct 39.8 % (42.0-52.0) L 07/02/21 04:49 MCV 91.7 fL (80.0-94.0) 07/02/21 04:49 MCH 30.4 pg (27.0-31.0) 07/02/21 04:49 MCHC 33.2 g/dL (32.0-36.0) 07/02/21 04:49 RDW 13.2 % (12.0-15.0) 07/02/21 04:49 Plt Count 173 10^3/uL (130-450) 07/02/21 04:49 MPV 9.5 fL (7.4-11.4) 07/02/21 04:49 Neut # (Auto) 5.3 10^3/uL (1.5-6.6) 07/02/21 04:49 Lymph # (Auto) 1.1 10^3/uL (1.5-3.5) L 07/02/21 04:49 [place] # (Auto) 0.6 10^3/uL (0.0-1.0) 07/02/21 04:49 Eos # (Auto) 0.0 10^3/uL (0.0-0.7) 07/02/21 04:49 Baso # (Auto) 0.0 10^3/uL (0.0-0.1) 07/02/21 04:49 Absolute Nucleated RBC 0.00 x10^3/uL 07/02/21 04:49 Total Counted 100 07/01/21 05:35 Band Neuts % (Manual) Not Reportable 07/02/21 04:49 Abnorm Lymph % (Manual) Not Reportable 07/02/21 04:49 Nucleated RBC % 0.0 /100WBC 07/02/21 04:49 Neutrophils # (Manual) Not Reportable 07/02/21 04:49 Lymphocytes # (Manual) Not Reportable 07/02/21 04:49 Monocytes # (Manual) Not Reportable 07/02/21 04:49 Eosinophils # (Manual) Not Reportable 07/02/21 04:49 Basophils # (Manual) Not Reportable 07/02/21 04:49 Differential Comment MANUAL=AUTO DIFF 07/02/21 04:49 Platelet Estimate NORMAL (130-450,000) (NORMAL) 07/02/21 04:49 RBC Morph Micro Appear NORMAL APPEARANCE (NORMAL) 07/02/21 04:49 PT 20.6 secs (9.9-12.6) H 06/29/21 19:08 INR 1.9 (0.8-1.2) H 06/29/21 19:08 D-Dimer 241.4 ng/mL (200.0-255.0) 06/29/21 19:08 Sodium 139 mmol/L (135-145) 07/02/21 04:49 Potassium 4.1 mmol/L (3.5-5.0) 07/02/21 04:49 Chloride 109 mmol/L (101-111) 07/02/21 04:49 Carbon Dioxide 22 mmol/L (21-32) 07/02/21 04:49 Anion Gap 8.0 (6-13) 07/02/21 04:49 BUN 26 mg/dL (6-20) H 07/02/21 04:49 Creatinine 0.9 mg/dL (0.6-1.2) 07/02/21 04:49 Estimated GFR (MDRD) 82 (>89) L 07/02/21 04:49 Glucose 139 mg/dL (70-100) H 07/02/21 04:49 Lactic Acid 1.4 mmol/L (0.5-2.2) 06/29/21 19:08 Calcium 8.3 mg/dL (8.5-10.3) L 07/02/21 04:49 Phosphorus 2.5 mg/dL (2.5-4.6) 07/02/21 04:49 Magnesium 2.1 mg/dL (1.7-2.8) 07/02/21 04:49 Total Bilirubin 0.7 mg/dL (0.2-1.0) 07/02/21 04:49 Direct Bilirubin 0.2 mg/dL (0.1-0.5) 07/02/21 04:49 AST 65 IU/L (10-42) H 07/02/21 04:49 ALT 62 IU/L (10-60) H 07/02/21 04:49 Alkaline Phosphatase 84 IU/L (42-121) 07/02/21 04:49 C-Reactive Protein 3.5 mg/dL (0-1.0) H 07/02/21 04:49 Total Protein 5.8 g/dL (6.7-8.2) L 07/02/21 04:49 Albumin 3.0 g/dL (3.2-5.5) L 07/02/21 04:49 Globulin 2.8 g/dL (2.1-4.2) 07/02/21 04:49 Albumin/Globulin Ratio 1.2 (1.0-2.2) 06/29/21 19:08 Nasal Screen MRSA (PCR) NEGATIVE (NEGATIVE) 06/30/21 17:05
[2021-07-02] MEDS: ATORVASTATIN 10 MG TABLET PO SCH (20:07)
[2021-07-02] MEDS: guaiFENesin/CODEINE 5 ML UDC PO PRN (23:54)
[2021-07-03] MEDS ORDERED: FUROSEMIDE 20 MG/2 ML VIAL IVP STA (00:05)
[2021-07-03] MEDS: SODIUM CHLORIDE FLUSH 0.9% 10 ML SYRINGE IVP SCH ×4 (00:15→22:21)
[2021-07-03 04:43] LABS: ABG PCO2 35 mmHg (34-45)
[2021-07-03 04:44] LABS: ABG BASE EXCESS 3.6 mmol/L (-2.0-3.0); ABG HCO3 26.6 mmol/L (22.0-26.0); ABG OXYGEN SATURATION 93 % (94-98); ABG PO2 63 mmHg (80-100); ABG TCO2 27.7 MMOL/L (21.0-29.0); ALLEN TEST POSITIVE
[2021-07-03 05:14] LABS: BASOPHILS % (AUTO) 0.1 %; HCT - HEMATOCRIT 40.5 % (42.0-52.0); HGB - HEMOGLOBIN 13.6 g/dL (14.0-18.0); LYMPHOCYTES % (AUTO) 12.6 %; MEAN CORPUSCULAR HEMOGLOBIN 30.4 pg (27.0-31.0); MEAN CORPUSCULAR HGB CONC 33.6 g/dL (32.0-36.0); MEAN CORPUSCULAR VOLUME 90.4 fL (80.0-94.0); MEAN PLATELET VOLUME 9.7 fL (7.4-11.4); MONOCYTES % (AUTO) 5.8 %; NEUTROPHILS % (AUTO) 80.5 %; PLT - PLATELET COUNT 229 10^3/uL (130-450); RED BLOOD COUNT 4.48 10^6/uL (4.70-6.10); RED CELL DISTRIBUTION WIDTH 12.8 % (12.0-15.0); WHITE BLOOD COUNT 12.6 x10^3/uL (4.8-10.8)
[2021-07-03 05:23] LABS: ABNORMAL LYMPHS % (MANUAL) 0 %
[2021-07-03 05:33] LABS: ALBUMIN 3.2 g/dL (3.2-5.5); BILIRUBIN,DIRECT 0.3 mg/dL (0.1-0.5); BILIRUBIN,TOTAL 0.9 mg/dL (0.2-1.0); CALCIUM 8.6 mg/dL (8.5-10.3); CREATININE 0.9 mg/dL (0.6-1.2); CRP - C-REACTIVE PROTEIN 2.3 mg/dL (0-1.0); PHOSPHORUS 3.1 mg/dL (2.5-4.6); POTASSIUM 3.8 mmol/L (3.5-5.0); TOTAL PROTEIN 6.2 g/dL (6.7-8.2)
[2021-07-03 05:58] LABS: BAND NEUTROPHILS % (MANUAL) 1 %; DIFFERENTIAL COMMENT MANUAL DIFFERENTIAL; LYMPHOCYTES # (MANUAL) 1.1 10^3/uL (1.5-3.5); LYMPHOCYTES % (MANUAL) 9 %; MONOCYTES # (MANUAL) 0.9 10^3/uL (0.0-1.0); NEUTROPHILS # (MANUAL) 10.6 10^3/uL (1.5-6.6); PLATELET ESTIMATE, MANUAL NORMAL (130-450,000) (NORMAL); RBC MORPHOLOGY (MULTIPLE) NORMAL APPEARANCE (NORMAL)
[2021-07-03] MEDS: LEVOTHYROXINE 25 MCG TABLET PO SCH (06:13)
[2021-07-03] MEDS: guaiFENesin/CODEINE 5 ML UDC PO PRN (06:13)
[2021-07-03] MEDS: oxyCODONE 5 MG TABLET PO PRN ×3 (06:13→20:40)
[2021-07-03] MEDS: LEVOTHYROXINE 125 MCG TABLET PO SCH (06:13)
[2021-07-03] MEDS: TAMSULOSIN 0.4 MG CAPSULE PO SCH (08:10)
[2021-07-03] MEDS: diltiaZEM CD 180 MG CAPSULE PO SCH (08:10)
[2021-07-03] MEDS: FLECAINIDE 50 MG TABLET PO SCH ×2 (08:11→20:40)
[2021-07-03] MEDS: CHOLECALCIFEROL 25 MCG TABLET PO SCH (08:11)
[2021-07-03] MEDS: DEXAMETHASONE 10 MG/ML VIAL IVP SCH (08:12)
[2021-07-03] MEDS: APIXABAN 5 MG TABLET PO SCH ×2 (08:12→20:40)
[2021-07-03] MEDS: LACTOBACILLUS RHAMNOSUS GG CAPSULE PO SCH (08:12)
--- NOTE | 2021-07-03 08:37 | XRAY Report ---
PROCEDURE: Chest 1 View X-Ray INDICATIONS: Worsening O2 saturations, has COVID TECHNIQUE: One view of the chest was acquired. COMPARISON: 06/29/2021 FINDINGS: Surgical changes and devices: None. Lungs and pleura: Patchy bilateral mixed consolidative and groundglass airspace opacities in both [place] gs have worsened when compared with 06/29/2021 exam. No visible pleural effusion or findings of pneumot horax. Mediastinum: Mediastinal contours appear normal. Heart size is normal. Bones and chest wall: No suspicious bony lesions. Overlying soft tissues appear unremarkable. IMPRESSION: Bilateral patchy groundglass and consolidative airspace opacities have worsened when compared with e 06/29/2021 exam. Reviewed by: Tim Ledesma MD on 07/03/2021 8:36 AM PDT Approved by: Tim Ledesma MD on 07/03/2021 8:36 AM PDT Station ID: [id number]
[2021-07-03] MEDS ORDERED: AZITHROMYCIN 250 MG TABLET PO STA (08:53)
--- NOTE | 2021-07-03 08:57 | PROVIDER PROGRESS NOTE ---
Assessment/Plan - Problem List (1) Acute respiratory failure with hypoxia Assessment/Plan: Yesterday late afternoon he needed increased O2 supplemental going from Oximizer at 15L to High Flow O2 at 40L. He keeps asking MD and RT about what happens on a ventilator and we discuss this with him. Overnight, his iv fluids were stopped and 1 dose of Lasix was given He continues on treatment for COVID pneumonia as well CXR ordered to be repeated today and it is showing worsened p[atchy consolidations. Will add empric treatment for bacterial pneumonia as well today. Adding Mucinex bid today also, for expectoration. (2) COVID-19 Assessment/Plan: His diarrhea resolved. He continues on treatment for COVID pneumonia with Remdesivir and Decadron. The iv steroids may be the cause of the incrteased WBC today to 12.6. CXR ordered to be repeated today and it is showing worsened patchy consolidations. Will add empric treatment for bacterial pneumonia as well today. Adding Mucinex bid today also, for expectoration. Follow CBC daily (3) History of atrial fibrillation Assessment/Plan: Currently in atrial paced rhythm. He underwent ablation about 3 weeks ago in [facility]. Continue diltiazem, flecainide and Eliquis. (4) HTN (hypertension) Qualifiers: Hypertension type: primary hypertension Qualified Code(s): I10 - Essential (primary) hypertension Assessment/Plan: BP stable Continue diltiazem. (5) Hypothyroid Assessment/Plan: TSH is acceptable Continue his home dose of Synthroid. - Current Meds Current Meds: Current Medications Generic Name Dose Route Start Last Admin Trade Name Xander PRN Reason Stop Dose Admin Apixaban 5 mg 06/29/21 21:00 07/03/21 08:12 Apixaban 5 Mg Tablet PO 5 mg BID ZENOBIA Administration Atorvastatin Calcium 10 mg 06/30/21 21:00 07/02/21 20:07 Atorvastatin 10 Mg Tablet PO 10 mg QPM ZENOBIA Administration Cholecalciferol 50 mcg 07/01/21 09:00 07/03/21 08:11 Cholecalciferol 25 Mcg Tablet PO 50 mcg DAILY ZENOBIA Administration Dexamethasone 6 mg 06/30/21 09:00 07/03/21 08:12 Dexamethasone 10 Mg/Ml Vial IVP 07/09/21 09:01 6 mg DAILY ZENOBIA Administration Diltiazem HCl 180 mg 07/01/21 09:00 07/03/21 08:10 Diltiazem Cd 180 Mg Capsule PO 180 mg DAILY ZENOBIA Administration Flecainide Acetate 100 mg 06/30/21 21:00 07/03/21 08:11 Flecainide 50 Mg Tablet PO 100 mg BID ZENOBIA Administration Guaifenesin/Codeine Phosphate 5 ml 06/29/21 21:34 07/03/21 06:13 Guaifenesin/Codeine 5 Ml Udc PO 5 ml Q6HR PRN Administration Cough Remdesivir 100 mg/ Sodium 100 mls @ 200 mls/hr 07/01/21 09:00 07/02/21 10:20 Chloride IV 07/04/21 09:29 Infused DAILY ZENOBIA Infusion Lactobacillus Rhamnosus 1 cap 07/01/21 16:00 07/03/21 08:12 Lactobacillus Rhamnosus Gg Capsule PO 1 cap DAILY ZENOBIA Administration Levothyroxine Sodium 125 mcg 06/30/21 07:00 07/03/21 06:13 Levothyroxine 125 Mcg Tablet PO 125 mcg QDAC ZENOBIA Administration Levothyroxine Sodium 25 mcg 06/30/21 07:00 07/03/21 06:13 Levothyroxine 25 Mcg Tablet PO 25 mcg QDAC ZENOBIA Administration Oxycodone HCl 5 mg 06/29/21 19:51 07/03/21 06:13 Oxycodone 5 Mg Tablet PO 5 mg Q4HR PRN Administration Pain 5 to 7 Sodium Chloride 10 ml 06/30/21 01:00 07/03/21 08:13 Sodium Chloride Flush 0.9% 10 Ml Syringe IVP 10 ml 0100,0900,1700 ZENOBIA Administration Tamsulosin HCl 0.4 mg 07/01/21 09:00 07/03/21 08:10 Tamsulosin 0.4 Mg Capsule PO 0.4 mg DAILY ZENOBIA Administration Throat Lozenges 1 lozenge 06/30/21 02:24 06/30/21 09:28 Benzocaine/Menthol Lozenge MM 1 lozenge Q2HR PRN Administration Throat pain - Lab Result Fish Bone Diagrams: 07/06/21 09:34 07/06/21 09:34 - Additional Planning My Orders: My Active Orders 07/03/21 08:00 Initiate ICU Electrolyte Prot. [RC] QSHIFT 07/03/21 08:53 Azithromycin [Zithromax] 500 mg PO ONCE STA 07/03/21 09:00 cefTRIAXone [Rocephin] 2 gm Sodium Chloride 0.9% Minibag [Normal Saline 0.9% Minibag] 100 ml IV DAILY guaiFENesin [Mucinex] 600 mg PO BID 07/04/21 09:00 Azithromycin [Zithromax] 250 mg PO DAILY Subjective - Subjective Patient Reports: Cough (Non-productive), Shortness of Breath (able to speak sentences w/ot dyspnea) Objective Vital Signs: Vital Signs - 24 hr 07/02/21 07/02/21 07/02/21 09:00 10:00 11:00 Temperature Heart Rate [ 60 71 60 Brachial] Heart Rate [ Monitoring electrodes] Respiratory 14 13 16 Rate Blood Pressure 128/72 104/60 148/72 H [Left Brachial artery] O2 Saturation 92 95 94 07/02/21 07/02/21 07/02/21 12:00 13:00 14:00 Temperature Heart Rate [ 60 63 60 Brachial] Heart Rate [ Monitoring electrodes] Respiratory 18 20 14 Rate Blood Pressure 160/69 H 151/66 H 158/72 H [Left Brachial artery] O2 Saturation 91 L 90 L 93 07/02/21 07/02/21 07/02/21 15:00 16:00 17:00 Temperature Heart Rate [ 60 60 60 Brachial] Heart Rate [ Monitoring electrodes] Respiratory 18 19 18 Rate Blood Pressure 152/68 H 169/69 H 158/72 H [Left Brachial artery] O2 Saturation 90 L 91 L 88 L 07/02/21 07/02/21 07/02/21 18:00 19:00 20:00 Temperature 36.7 C Heart Rate [ 60 71 60 Brachial] Heart Rate [ Monitoring electrodes] Respiratory 18 19 18 Rate Blood Pressure 155/69 H 131/75 H 143/67 H [Left Brachial artery] O2 Saturation 95 90 L 92 07/02/21 07/02/21 07/02/21 21:00 22:00 23:00 Temperature Heart Rate [ 60 Brachial] Heart Rate [ 60 60 60 Monitoring electrodes] Respiratory 19 16 14 Rate Blood Pressure 158/85 H 154/74 H 162/78 H [Left Brachial artery] O2 Saturation 91 L 90 L 90 L 07/03/21 07/03/21 07/03/21 00:00 00:33 00:37 Temperature 36.5 C Heart Rate [ Brachial] Heart Rate [ 60 Monitoring electrodes] Respiratory 14 22 Rate Blood Pressure 145/70 H [Left Brachial artery] O2 Saturation 88 L 86 L 07/03/21 07/03/21 07/03/21 01:00 01:28 01:56 Temperature Heart Rate [ Brachial] Heart Rate [ 60 60 64 Monitoring electrodes] Respiratory 21 14 27 H Rate Blood Pressure 135/71 H [Left Brachial artery] O2 Saturation 90 L 91 L 89 L 07/03/21 07/03/21 07/03/21 02:00 02:20 02:23 Temperature Heart Rate [ Brachial] Heart Rate [ 76 Monitoring electrodes] Respiratory 19 16 14 Rate Blood Pressure 133/68 H [Left Brachial artery] O2 Saturation 86 L 90 L 92 07/03/21 07/03/21 07/03/21 03:00 03:02 04:00 Temperature Heart Rate [ Brachial] Heart Rate [ 60 60 Monitoring electrodes] Respiratory 14 15 16 Rate Blood Pressure 118/74 127/86 H [Left Brachial artery] O2 Saturation 90 L 94 92 07/03/21 07/03/21 07/03/21 05:00 06:00 07:00 Temperature Heart Rate [ Brachial] Heart Rate [ 60 66 62 Monitoring electrodes] Respiratory 15 20 15 Rate Blood Pressure 145/77 H 165/71 H 126/107 H [Left Brachial artery] O2 Saturation 91 L 86 L 93 07/03/21 07/03/21 08:00 08:35 Temperature 36.8 C Heart Rate [ Brachial] Heart Rate [ 60 Monitoring electrodes] Respiratory 24 18 Rate Blood Pressure 155/74 H [Left Brachial artery] O2 Saturation 87 L 87 L Oxygen O2 Source HHFNC Oxygen Flow Rate 2 I&O (Last 24 Hrs): Intake and Output Totals x24h 07/01/21 07/02/21 07/03/21 23:59 23:59 23:59 Intake Total 3163.333 3387.000 723 Output Total 875 2775 2150 Balance 2288.333 612.000 -1427 General: Alert, Oriented x3, No acute distress HEENT: Mucous membr. moist/pink, Other (wearing High flow n.c.) Neck: Supple, No JVD Neuro: Alert, Non Focal Cardiovascular: Regular rate, No murmurs Respiratory: Other (Poor air mvm) Abdomen: Soft, No tenderness Extremities: No clubbing, No edema - Results Results: Laboratory Results WBC 12.6 x10^3/uL (4.8-10.8) H 07/03/21 04:30 RBC 4.48 10^6/uL (4.70-6.10) L 07/03/21 04:30 Hgb 13.6 g/dL (14.0-18.0) L 07/03/21 04:30 Hct 40.5 % (42.0-52.0) L 07/03/21 04:30 MCV 90.4 fL (80.0-94.0) 07/03/21 04:30 MCH 30.4 pg (27.0-31.0) 07/03/21 04:30 MCHC 33.6 g/dL (32.0-36.0) 07/03/21 04:30 RDW 12.8 % (12.0-15.0) 07/03/21 04:30 Plt Count 229 10^3/uL (130-450) 07/03/21 04:30 MPV 9.7 fL (7.4-11.4) 07/03/21 04:30 Neut # (Auto) Not Reportable 07/03/21 04:30 Lymph # (Auto) Not Reportable 07/03/21 04:30 [place] # (Auto) Not Reportable 07/03/21 04:30 Eos # (Auto) Not Reportable 07/03/21 04:30 Baso # (Auto) Not Reportable 07/03/21 04:30 Absolute Nucleated RBC Not Reportable 07/03/21 04:30 Total Counted 100 07/03/21 04:30 Band Neuts % (Manual) 1 % (0-10) 07/03/21 04:30 Abnorm Lymph % (Manual) 0 % 07/03/21 04:30 Nucleated RBC % Not Reportable 07/03/21 04:30 Neutrophils # (Manual) 10.6 10^3/uL (1.5-6.6) H 07/03/21 04:30 Lymphocytes # (Manual) 1.1 10^3/uL (1.5-3.5) L 07/03/21 04:30 Monocytes # (Manual) 0.9 10^3/uL (0.0-1.0) 07/03/21 04:30 Eosinophils # (Manual) 0.0 10^3/uL (0-0.7) 07/03/21 04:30 Basophils # (Manual) 0.0 10^3/uL (0-0.1) 07/03/21 04:30 Differential Comment MANUAL DIFFERENTIAL 07/03/21 04:30 Platelet Estimate NORMAL (130-450,000) (NORMAL) 07/03/21 04:30 RBC Morph Micro Appear NORMAL APPEARANCE (NORMAL) 07/03/21 04:30 PT 20.6 secs (9.9-12.6) H 06/29/21 19:08 INR 1.9 (0.8-1.2) H 06/29/21 19:08 D-Dimer 241.4 ng/mL (200.0-255.0) 06/29/21 19:08 Bld Gas Analysis Time 0443 07/03/21 04:34 Sample Site RIGHT RADIAL 07/03/21 04:34 ABG pH 7.50 (7.35-7.45) H 07/03/21 04:34 ABG pCO2 35 mmHg (34-45) 07/03/21 04:34 ABG pO2 63 mmHg (80-100) L 07/03/21 04:34 ABG HCO3 26.6 mmol/L (22.0-26.0) H 07/03/21 04:34 ABG Total CO2 27.7 MMOL/L (21.0-29.0) 07/03/21 04:34 ABG O2 Saturation 93 % (94-98) L 07/03/21 04:34 ABG Base Excess 3.6 mmol/L (-2.0-3.0) H 07/03/21 04:34 Paulie Test POSITIVE 07/03/21 04:34 O2 Delivery Device NASAL CANNULA 07/03/21 04:34 FiO2 100.00 07/03/21 04:34 Sodium 140 mmol/L (135-145) 07/03/21 04:30 Potassium 3.8 mmol/L (3.5-5.0) 07/03/21 04:30 Chloride 104 mmol/L (101-111) 07/03/21 04:30 Carbon Dioxide 24 mmol/L (21-32) 07/03/21 04:30 Anion Gap 12.0 (6-13) 07/03/21 04:30 BUN 30 mg/dL (6-20) H 07/03/21 04:30 Creatinine 0.9 mg/dL (0.6-1.2) 07/03/21 04:30 Estimated GFR (MDRD) 82 (>89) L 07/03/21 04:30 Glucose 134 mg/dL (70-100) H 07/03/21 04:30 Lactic Acid 1.4 mmol/L (0.5-2.2) 06/29/21 19:08 Calcium 8.6 mg/dL (8.5-10.3) 07/03/21 04:30 Phosphorus 3.1 mg/dL (2.5-4.6) 07/03/21 04:30 Magnesium 2.0 mg/dL (1.7-2.8) 07/03/21 04:30 Total Bilirubin 0.9 mg/dL (0.2-1.0) 07/03/21 04:30 Direct Bilirubin 0.3 mg/dL (0.1-0.5) 07/03/21 04:30 AST 52 IU/L (10-42) H 07/03/21 04:30 ALT 62 IU/L (10-60) H 07/03/21 04:30 Alkaline Phosphatase 92 IU/L (42-121) 07/03/21 04:30 C-Reactive Protein 2.3 mg/dL (0-1.0) H 07/03/21 04:30 Total Protein 6.2 g/dL (6.7-8.2) L 07/03/21 04:30 Albumin 3.2 g/dL (3.2-5.5) 07/03/21 04:30 Globulin 3.0 g/dL (2.1-4.2) 07/03/21 04:30 Albumin/Globulin Ratio 1.2 (1.0-2.2) 06/29/21 19:08 TSH 0.69 uIU/mL (0.34-5.60) 07/03/21 04:30 Nasal Screen MRSA (PCR) NEGATIVE (NEGATIVE) 06/30/21 17:05
[2021-07-03] MEDS: REMDESIVIR 100MG VIAL 100 MG in SODIUM CHLORIDE 0.9% 100ML 100 ML IV SCH (09:10)
[2021-07-03] MEDS: guaiFENesin 600 MG TABLET PO SCH ×2 (09:12→20:40)
[2021-07-03] MEDS: cefTRIAXone 2 GM in SODIUM CHLORIDE 0.9% MINIBAG 100 ML IV SCH (10:00)
[2021-07-03] MEDS: BENZOCAINE/MENTHOL LOZENGE MM PRN (17:07)
--- NOTE | 2021-07-03 19:04 | PROVIDER PROGRESS NOTE ---
Assessment/Plan - Problem List (1) Acute respiratory failure with hypoxia Assessment/Plan: Secondary to Covid pneumonia. Patient continued to be on 15 L of oxygen via high flow nasal cannula. His oxygen saturation is between eighty-eight and 92%. Chest x-ray done today showed slight worsening when compared to the x-ray of 06/29/2021. He does not appear to be in respiratory distress. We will continue Decadron and remdesivir.The patient's fluids were discontinued yesterday night and a dose of Lasix 20 mg IV x1 was administered. Patient's white blood cell count today is 12.6. As a result Rocephin and azithromycin were added to his regimen. We will attempt to prolong the patient tonight. If patient's oxygen saturation Dropped to the low to mid 80s, will obtain an ABG. (2) COVID-19 Assessment/Plan: Chest x-ray done today showed slight worsening when compared to the x-ray of 06/29/2021. He does not appear to be in respiratory distress. We will continue Decadron and remdesivir.The patient's fluids were discontinued yesterday night and a dose of Lasix 20 mg IV x1 was administered. Patient's white blood cell count today is 12.6. As a result Rocephin and azithromycin were added to his regimen. We will attempt to prolong the patient tonight. If patient's oxygen saturation Dropped to the low to mid 80s, will obtain an ABG. (3) History of atrial fibrillation Assessment/Plan: Currently in a paced rhythm. He underwent ablation about 3 weeks ago in [place]. Continue diltiazem, flecainide and Eliquis. (4) HTN (hypertension) Qualifiers: Hypertension type: primary hypertension Qualified Code(s): I10 - Essential (primary) hypertension Assessment/Plan: Continue diltiazem. (5) Hypothyroid Assessment/Plan: Continue Synthroid - Current Meds Current Meds: Current Medications Generic Name Dose Route Start Last Admin Trade Name Freq PRN Reason Stop Dose Admin Apixaban 5 mg 06/29/21 21:00 07/03/21 08:12 Apixaban 5 Mg Tablet PO 5 mg BID ZENOBIA Administration Atorvastatin Calcium 10 mg 06/30/21 21:00 07/02/21 20:07 Atorvastatin 10 Mg Tablet PO 10 mg QPM ZENOBIA Administration Cholecalciferol 50 mcg 07/01/21 09:00 07/03/21 08:11 Cholecalciferol 25 Mcg Tablet PO 50 mcg DAILY ZENOBIA Administration Dexamethasone 6 mg 06/30/21 09:00 07/03/21 08:12 Dexamethasone 10 Mg/Ml Vial IVP 07/09/21 09:01 6 mg DAILY ZENOBIA Administration Diltiazem HCl 180 mg 07/01/21 09:00 07/03/21 08:10 Diltiazem Cd 180 Mg Capsule PO 180 mg DAILY ZENOBIA Administration Flecainide Acetate 100 mg 06/30/21 21:00 07/03/21 08:11 Flecainide 50 Mg Tablet PO 100 mg BID ZENOBIA Administration Guaifenesin 600 mg 07/03/21 09:00 07/03/21 09:12 Guaifenesin 600 Mg Tablet PO 600 mg BID ZENOBIA Administration Guaifenesin/Codeine Phosphate 5 ml 06/29/21 21:34 07/03/21 06:13 Guaifenesin/Codeine 5 Ml Udc PO 5 ml Q6HR PRN Administration Cough Remdesivir 100 mg/ Sodium 100 mls @ 200 mls/hr 07/01/21 09:00 07/03/21 09:40 Chloride IV 07/04/21 09:29 Infused DAILY ZENOBIA Infusion Ceftriaxone Sodium 2 gm/ 100 mls @ 200 mls/hr 07/03/21 09:00 07/03/21 10:30 Sodium Chloride IV Infused DAILY ZENOBIA Infusion Lactobacillus Rhamnosus 1 cap 07/01/21 16:00 07/03/21 08:12 Lactobacillus Rhamnosus Gg Capsule PO 1 cap DAILY ZENOBIA Administration Levothyroxine Sodium 125 mcg 06/30/21 07:00 07/03/21 06:13 Levothyroxine 125 Mcg Tablet PO 125 mcg QDAC ZENOBIA Administration Levothyroxine Sodium 25 mcg 06/30/21 07:00 07/03/21 06:13 Levothyroxine 25 Mcg Tablet PO 25 mcg QDAC ZENOBIA Administration Oxycodone HCl 5 mg 06/29/21 19:51 07/03/21 14:20 Oxycodone 5 Mg Tablet PO 5 mg Q4HR PRN Administration Pain 5 to 7 Sodium Chloride 10 ml 06/30/21 01:00 07/03/21 17:10 Sodium Chloride Flush 0.9% 10 Ml Syringe IVP 10 ml 0100,0900,1700 ZENOBIA Administration Tamsulosin HCl 0.4 mg 07/01/21 09:00 07/03/21 08:10 Tamsulosin 0.4 Mg Capsule PO 0.4 mg DAILY ZENOBIA Administration Throat Lozenges 1 lozenge 06/30/21 02:24 07/03/21 17:07 Benzocaine/Menthol Lozenge MM 1 lozenge Q2HR PRN Administration Throat pain - Lab Result Fish Bone Diagrams: 07/03/21 04:30 07/03/21 04:30 Subjective - Subjective Patient Reports: Other (Patient is resting comfortably in bed. He expresses feeling anxious about his illness. He denies feeling any worsening in his respiratory status. He denies any other complains.) Objective Vital Signs: Vital Signs - 24 hr 07/02/21 07/02/21 07/02/21 20:00 21:00 22:00 Temperature 36.7 C Heart Rate [ 60 60 Brachial] Heart Rate [ 60 60 Monitoring electrodes] Respiratory 18 19 16 Rate Blood Pressure 143/67 H 158/85 H 154/74 H [Left Brachial artery] O2 Saturation 92 91 L 90 L 07/02/21 07/03/21 07/03/21 23:00 00:00 00:33 Temperature 36.5 C Heart Rate [ Brachial] Heart Rate [ 60 60 Monitoring electrodes] Respiratory 14 14 Rate Blood Pressure 162/78 H 145/70 H [Left Brachial artery] O2 Saturation 90 L 88 L 07/03/21 07/03/21 07/03/21 00:37 01:00 01:28 Temperature Heart Rate [ Brachial] Heart Rate [ 60 60 Monitoring electrodes] Respiratory 22 21 14 Rate Blood Pressure 135/71 H [Left Brachial artery] O2 Saturation 86 L 90 L 91 L 07/03/21 07/03/21 07/03/21 01:56 02:00 02:20 Temperature Heart Rate [ Brachial] Heart Rate [ 64 76 Monitoring electrodes] Respiratory 27 H 19 16 Rate Blood Pressure 133/68 H [Left Brachial artery] O2 Saturation 89 L 86 L 90 L 07/03/21 07/03/21 07/03/21 02:23 03:00 03:02 Temperature Heart Rate [ Brachial] Heart Rate [ 60 Monitoring electrodes] Respiratory 14 14 15 Rate Blood Pressure 118/74 [Left Brachial artery] O2 Saturation 92 90 L 94 07/03/21 07/03/2107/03/21 04:00 05:00 06:00 Temperature Heart Rate [ Brachial] Heart Rate [ 60 60 66 Monitoring electrodes] Respiratory 16 15 20 Rate Blood Pressure 127/86 H 145/77 H 165/71 H [Left Brachial artery] O2 Saturation 92 91 L 86 L 07/03/21 07/03/21 07/03/21 07:00 08:00 08:35 Temperature 36.8 C Heart Rate [ Brachial] Heart Rate [ 62 60 Monitoring electrodes] Respiratory 15 24 18 Rate Blood Pressure 126/107 H 155/74 H [Left Brachial artery] O2 Saturation 93 87 L 87 L 07/03/21 07/03/21 07/03/21 09:00 10:00 11:00 Temperature Heart Rate [ Brachial] Heart Rate [ 69 60 60 Monitoring electrodes] Respiratory 23 15 14 Rate Blood Pressure 129/58 L 119/67 142/63 H [Left Brachial artery] O2 Saturation 90 L 93 94 07/03/21 07/03/21 07/03/21 12:00 13:00 14:00 Temperature Heart Rate [ Brachial] Heart Rate [ 60 62 60 Monitoring electrodes] Respiratory 16 18 14 Rate Blood Pressure 170/82 H 139/69 H 158/79 H [Left Brachial artery] O2 Saturation 90 L 91 L 94 07/03/21 07/03/21 07/03/21 15:00 16:00 17:00 Temperature 36.8 C Heart Rate [ Brachial] Heart Rate [ 60 60 60 Monitoring electrodes] Respiratory 15 20 21 Rate Blood Pressure 169/86 H 189/74 H 121/96 H [Left Brachial artery] O2 Saturation 90 L 88 L 90 L 07/03/21 07/03/21 18:00 19:00 Temperature Heart Rate [ Brachial] Heart Rate [ 60 62 Monitoring electrodes] Respiratory 15 17 Rate Blood Pressure 139/59 H 160/62 H [Left Brachial artery] O2 Saturation 92 91 L Oxygen O2 Source HHFNC Oxygen Flow Rate 2 I&O (Last 24 Hrs): Intake and Output Totals x24h 07/01/21 07/02/21 07/03/21 23:59 23:59 23:59 Intake Total 3163.333 3387.000 1563 Output Total 875 2775 2450 Balance 2288.333 612.000 -887 General: Alert, Oriented x3, Other (Anxious) HEENT: PERRLA, EOMI Neck: Supple, No JVD Neuro: Alert, Non Focal, Oriented Times 3 Cardiovascular: Regular rate, Normal S1, Normal S2, No murmurs Respiratory: Chest non-tender, Other (bilateral crackles) Abdomen: Normal bowel sounds, Soft, No tenderness Extremities: No clubbing, No cyanosis, No edema, No tenderness/swelling Skin: No rashes, No breakdown - Results Results: Laboratory Results WBC 12.6 x10^3/uL (4.8-10.8) H 07/03/21 04:30 RBC 4.48 10^6/uL (4.70-6.10) L 07/03/21 04:30 Hgb 13.6 g/dL (14.0-18.0) L 07/03/21 04:30 Hct 40.5 % (42.0-52.0) L 07/03/21 04:30 MCV 90.4 fL (80.0-94.0) 07/03/21 04:30 MCH 30.4 pg (27.0-31.0) 07/03/21 04:30 MCHC 33.6 g/dL (32.0-36.0) 07/03/21 04:30 RDW 12.8 % (12.0-15.0) 07/03/21 04:30 Plt Count 229 10^3/uL (130-450) 07/03/21 04:30 MPV 9.7 fL (7.4-11.4) 07/03/21 04:30 Neut # (Auto) Not Reportable 07/03/21 04:30 Lymph # (Auto) Not Reportable 07/03/21 04:30 [place] # (Auto) Not Reportable 07/03/21 04:30 Eos # (Auto) Not Reportable 07/03/21 04:30 Baso # (Auto) Not Reportable 07/03/21 04:30 Absolute Nucleated RBC Not Reportable 07/03/21 04:30 Total Counted 100 07/03/21 04:30 Band Neuts % (Manual) 1 % (0-10) 07/03/21 04:30 Abnorm Lymph % (Manual) 0 % 07/03/21 04:30 Nucleated RBC % Not Reportable 07/03/21 04:30 Neutrophils # (Manual) 10.6 10^3/uL (1.5-6.6) H 07/03/21 04:30 Lymphocytes # (Manual) 1.1 10^3/uL (1.5-3.5) L 07/03/21 04:30 Monocytes # (Manual) 0.9 10^3/uL (0.0-1.0) 07/03/21 04:30 Eosinophils # (Manual) 0.0 10^3/uL (0-0.7) 07/03/21 04:30 Basophils # (Manual) 0.0 10^3/uL (0-0.1) 07/03/21 04:30 Differential Comment MANUAL DIFFERENTIAL 07/03/21 04:30 Platelet Estimate NORMAL (130-450,000) (NORMAL) 07/03/21 04:30 RBC Morph Micro Appear NORMAL APPEARANCE (NORMAL) 07/03/21 04:30 PT 20.6 secs (9.9-12.6) H 06/29/21 19:08 INR 1.9 (0.8-1.2) H 06/29/21 19:08 D-Dimer 241.4 ng/mL (200.0-255.0) 06/29/21 19:08 Bld Gas Analysis Time 0443 07/03/21 04:34 Sample Site RIGHT RADIAL 07/03/21 04:34 ABG pH 7.50 (7.35-7.45) H 07/03/21 04:34 ABG pCO2 35 mmHg (34-45) 07/03/21 04:34 ABG pO2 63 mmHg (80-100) L 07/03/21 04:34 ABG HCO3 26.6 mmol/L (22.0-26.0) H 07/03/21 04:34 ABG Total CO2 27.7 MMOL/L (21.0-29.0) 07/03/21 04:34 ABG O2 Saturation 93 % (94-98) L 07/03/21 04:34 ABG Base Excess 3.6 mmol/L (-2.0-3.0) H 07/03/21 04:34 Paulie Test POSITIVE 07/03/21 04:34 O2 Delivery Device NASAL CANNULA 07/03/21 04:34 FiO2 100.00 07/03/21 04:34 Sodium 140 mmol/L (135-145) 07/03/21 04:30 Potassium 3.8 mmol/L (3.5-5.0) 07/03/21 04:30 Chloride 104 mmol/L (101-111) 07/03/21 04:30 Carbon Dioxide 24 mmol/L (21-32) 07/03/21 04:30 Anion Gap 12.0 (6-13) 07/03/21 04:30 BUN 30 mg/dL (6-20) H 07/03/21 04:30 Creatinine 0.9 mg/dL (0.6-1.2) 07/03/21 04:30 Estimated GFR (MDRD) 82 (>89) L 07/03/21 04:30 Glucose 134 mg/dL (70-100) H 07/03/21 04:30 Lactic Acid 1.4 mmol/L (0.5-2.2) 06/29/21 19:08 Calcium 8.6 mg/dL (8.5-10.3) 07/03/21 04:30 Phosphorus 3.1 mg/dL (2.5-4.6) 07/03/21 04:30 Magnesium 2.0 mg/dL (1.7-2.8) 07/03/21 04:30 Total Bilirubin 0.9 mg/dL (0.2-1.0) 07/03/21 04:30 Direct Bilirubin 0.3 mg/dL (0.1-0.5) 07/03/21 04:30 AST 52 IU/L (10-42) H 07/03/21 04:30 ALT 62 IU/L (10-60) H 07/03/21 04:30 Alkaline Phosphatase 92 IU/L (42-121) 07/03/21 04:30 C-Reactive Protein 2.3 mg/dL (0-1.0) H 07/03/21 04:30 Total Protein 6.2 g/dL (6.7-8.2) L 07/03/21 04:30 Albumin 3.2 g/dL (3.2-5.5) 07/03/21 04:30 Globulin 3.0 g/dL (2.1-4.2) 07/03/21 04:30 Albumin/Globulin Ratio 1.2 (1.0-2.2) 06/29/21 19:08 TSH 0.69 uIU/mL (0.34-5.60) 07/03/21 04:30 Nasal Screen MRSA (PCR) NEGATIVE (NEGATIVE) 06/30/21 17:05 ABX Reporting Has patient been on IV antibiotics over the past 48 hours?: Yes
[2021-07-03] MEDS ORDERED: LORazepam 0.5 MG TABLET PO STA (20:01)
[2021-07-03] MEDS: ATORVASTATIN 10 MG TABLET PO SCH (20:40)
[2021-07-04 06:08] LABS: BASOPHILS % (AUTO) 0.2 %; HCT - HEMATOCRIT 40.7 % (42.0-52.0); HGB - HEMOGLOBIN 13.3 g/dL (14.0-18.0); LYMPHOCYTES % (AUTO) 11.7 %; MEAN CORPUSCULAR HEMOGLOBIN 29.7 pg (27.0-31.0); MEAN CORPUSCULAR HGB CONC 32.7 g/dL (32.0-36.0); MEAN CORPUSCULAR VOLUME 90.8 fL (80.0-94.0); MEAN PLATELET VOLUME 9.7 fL (7.4-11.4); NEUTROPHILS % (AUTO) 82.7 %; PLT - PLATELET COUNT 247 10^3/uL (130-450); RED BLOOD COUNT 4.48 10^6/uL (4.70-6.10); RED CELL DISTRIBUTION WIDTH 12.8 % (12.0-15.0); WHITE BLOOD COUNT 12.6 x10^3/uL (4.8-10.8)
[2021-07-04 06:14] LABS: ABNORMAL LYMPHS % (MANUAL) 0 %
[2021-07-04 06:20] LABS: BILIRUBIN,DIRECT 0.3 mg/dL (0.1-0.5); BILIRUBIN,TOTAL 1.1 mg/dL (0.2-1.0); CALCIUM 8.5 mg/dL (8.5-10.3); CREATININE 0.9 mg/dL (0.6-1.2); MAGNESIUM 2.3 mg/dL (1.7-2.8); PHOSPHORUS 3.2 mg/dL (2.5-4.6); POTASSIUM 4.1 mmol/L (3.5-5.0); TOTAL PROTEIN 6.1 g/dL (6.7-8.2)
[2021-07-04] MEDS: LEVOTHYROXINE 25 MCG TABLET PO SCH (06:28)
[2021-07-04] MEDS: oxyCODONE 5 MG TABLET PO PRN ×3 (06:28→20:35)
[2021-07-04] MEDS: LEVOTHYROXINE 125 MCG TABLET PO SCH (06:28)
[2021-07-04 06:37] LABS: BAND NEUTROPHILS % (MANUAL) 2 %; LYMPHOCYTES % (MANUAL) 8 %; MONOCYTES # (MANUAL) 0.4 10^3/uL (0.0-1.0); NEUTROPHILS # (MANUAL) 11.2 10^3/uL (1.5-6.6)
[2021-07-04 06:38] LABS: DIFFERENTIAL COMMENT MANUAL DIFFERENTIAL; PLATELET ESTIMATE, MANUAL NORMAL (130-450,000) (NORMAL); PLATELET MORPHOLOGY NORMAL APPEARANCE (NORMAL); RBC MORPHOLOGY (MULTIPLE) NORMAL APPEARANCE (NORMAL); WBC MORPHOLOGY (MULTIPLE) NORMAL APPEARANCE (NORMAL)
[2021-07-04] MEDS: cefTRIAXone 2 GM in SODIUM CHLORIDE 0.9% MINIBAG 100 ML IV SCH (09:09)
[2021-07-04] MEDS: DEXAMETHASONE 10 MG/ML VIAL IVP SCH (09:10)
[2021-07-04] MEDS: FLECAINIDE 50 MG TABLET PO SCH ×2 (09:14→20:35)
[2021-07-04] MEDS: TAMSULOSIN 0.4 MG CAPSULE PO SCH (09:15)
[2021-07-04] MEDS: APIXABAN 5 MG TABLET PO SCH ×2 (09:16→20:35)
[2021-07-04] MEDS: diltiaZEM CD 180 MG CAPSULE PO SCH (09:16)
[2021-07-04] MEDS: LACTOBACILLUS RHAMNOSUS GG CAPSULE PO SCH (09:17)
[2021-07-04] MEDS: CHOLECALCIFEROL 25 MCG TABLET PO SCH (09:17)
[2021-07-04] MEDS: LORazepam 0.5 MG TABLET PO PRN ×2 (09:18→20:35)
[2021-07-04] MEDS: guaiFENesin 600 MG TABLET PO SCH ×2 (09:19→20:35)
[2021-07-04] MEDS: AZITHROMYCIN 250 MG TABLET PO SCH (09:20)
[2021-07-04] MEDS: REMDESIVIR 100MG VIAL 100 MG in SODIUM CHLORIDE 0.9% 100ML 100 ML IV SCH (10:06)
[2021-07-04] MEDS: SODIUM CHLORIDE FLUSH 0.9% 10 ML SYRINGE IVP SCH ×2 (10:11→18:45)
--- NOTE | 2021-07-04 19:25 | PROVIDER PROGRESS NOTE ---
Assessment/Plan - Problem List (1) Acute respiratory failure with hypoxia Assessment/Plan: Secondary to Covid pneumonia. Patient's oxygen saturation was significantly improved today. It stayed mostly greater than 94% on 15 L of oxygen via high flow nasal cannula. Patient's white blood cell count was 12.6. It did not change from the previous day. Patient completed the last dose of remdesivir today. We will continue Decadron, Rocephin and azithromycin. (2) COVID-19 Assessment/Plan: Patient's oxygen saturation was significantly improved today. It stayed mostly greater than 94% on 15 L of oxygen via high flow nasal cannula. Patient's white blood cell count was 12.6. It did not change from the previous day. Patient completed the last dose of remdesivir today. We will continue Decadron, Rocephin and azithromycin. (3) History of atrial fibrillation Assessment/Plan: Currently in a paced rhythm. He underwent ablation about 3 weeks ago in [place]. Continue diltiazem, flecainide and Eliquis. (4) HTN (hypertension) Qualifiers: Hypertension type: primary hypertension Qualified Code(s): I10 - Essential (primary) hypertension Assessment/Plan: Continue diltiazem. (5) Hypothyroid Assessment/Plan: Continue Synthroid - Current Meds Current Meds: Current Medications Generic Name Dose Route Start Last Admin Trade Name Freq PRN Reason Stop Dose Admin Acetaminophen 650 mg 06/29/21 19:51 07/04/21 09:19 Acetaminophen 325 Mg Tablet PO 650 mg Q4HR PRN Administration Pain 1 to 4 Apixaban 5 mg 06/29/21 21:00 07/04/21 09:16 Apixaban 5 Mg Tablet PO 5 mg BID ZENOBIA Administration Atorvastatin Calcium 10 mg 06/30/21 21:00 07/03/21 20:40 Atorvastatin 10 Mg Tablet PO 10 mg QPM ZENOBIA Administration Azithromycin 250 mg 07/04/21 09:00 07/04/21 09:20 Azithromycin 250 Mg Tablet PO 250 mg DAILY ZENOBIA Administration Cholecalciferol 50 mcg 07/01/21 09:00 07/04/21 09:17 Cholecalciferol 25 Mcg Tablet PO 50 mcg DAILY ZENOBIA Administration Dexamethasone 6 mg 06/30/21 09:00 07/04/21 09:10 Dexamethasone 10 Mg/Ml Vial IVP 07/09/21 09:01 6 mg DAILY ZENOBIA Administration Diltiazem HCl 180 mg 07/01/21 09:00 07/04/21 09:16 Diltiazem Cd 180 Mg Capsule PO 180 mg DAILY ZENOBIA Administration Flecainide Acetate 100 mg 06/30/21 21:00 07/04/21 09:14 Flecainide 50 Mg Tablet PO 100 mg BID ZENOBIA Administration Guaifenesin 600 mg 07/03/21 09:00 07/04/21 09:19 Guaifenesin 600 Mg Tablet PO 600 mg BID ZENOBIA Administration Guaifenesin/Codeine Phosphate 5 ml 06/29/21 21:34 07/03/21 06:13 Guaifenesin/Codeine 5 Ml Udc PO 5 ml Q6HR PRN Administration Cough Ceftriaxone Sodium 2 gm/ 100 mls @ 200 mls/hr 07/03/21 09:00 07/04/21 09:40 Sodium Chloride IV Infused DAILY ZENOBIA Infusion Lactobacillus Rhamnosus 1 cap 07/01/21 16:00 07/04/21 09:17 Lactobacillus Rhamnosus Gg Capsule PO 1 cap DAILY ZENOBIA Administration Levothyroxine Sodium 125 mcg 06/30/21 07:00 07/04/21 06:28 Levothyroxine 125 Mcg Tablet PO 125 mcg QDAC ZENOBIA Administration Levothyroxine Sodium 25 mcg 06/30/21 07:00 07/04/21 06:28 Levothyroxine 25 Mcg Tablet PO 25 mcg QDAC ZENOBIA Administration Lorazepam 0.5 mg 07/04/21 07:36 07/04/21 09:18 Lorazepam 0.5 Mg Tablet PO 0.5 mg Q8H PRN Administration Anxiety Oxycodone HCl 5 mg 06/29/21 19:51 07/04/21 10:22 Oxycodone 5 Mg Tablet PO 5 mg Q4HR PRN Administration Pain 5 to 7 Sodium Chloride 10 ml 06/30/21 01:00 07/04/21 18:45 Sodium Chloride Flush 0.9% 10 Ml Syringe IVP Not Given 0100,0900,1700 [facility] Tamsulosin HCl 0.4 mg 07/01/21 09:00 07/04/21 09:15 Tamsulosin 0.4 Mg Capsule PO 0.4 mg DAILY ZENOBIA Administration Throat Lozenges 1 lozenge 06/30/21 02:24 07/03/21 17:07 Benzocaine/Menthol Lozenge MM 1 lozenge Q2HR PRN Administration Throat pain - Lab Result Fish Bone Diagrams: 07/04/21 04:53 07/04/21 04:53 - Additional Planning My Orders: My Active Orders 07/04/21 07:36 LORazepam [Ativan] 0.5 mg PO Q8H PRN Subjective - Subjective Patient Reports: Other (Patient was resting comfortably in bed. He had a mild trauma which he reports experiencing intermittently. He reports a productive cough. Complained of feeling hot. He denied chest pain, abdominal pain, nausea vomiting.) Objective Vital Signs: Vital Signs - 24 hr 07/03/21 07/03/21 07/03/21 20:00 22:00 23:00 Temperature 36.7 C Heart Rate [ 81 60 62 Monitoring electrodes] Respiratory 24 19 15 Rate Blood Pressure 147/64 H 122/69 120/68 [Left Brachial artery] O2 Saturation 87 L 93 94 07/04/21 07/04/21 07/04/21 00:33 01:00 02:00 Temperature 36.7 C Heart Rate [ 60 60 60 Monitoring electrodes] Respiratory 15 19 14 Rate Blood Pressure 137/67 H 143/81 H 146/79 H [Left Brachial artery] O2 Saturation 88 L 92 90 L 07/04/21 07/04/21 07/04/21 03:00 04:00 05:00 Temperature 36.5 C Heart Rate [ 62 60 60 Monitoring electrodes] Respiratory 20 20 15 Rate Blood Pressure 160/68 H 149/77 H 169/84 H [Left Brachial artery] O2 Saturation 85 L 91 L 92 07/04/21 07/04/21 07/04/21 06:00 07:00 08:00 Temperature 36.7 C Heart Rate [ 60 60 Monitoring electrodes] Respiratory 18 12 Rate Blood Pressure 186/72 H 136/74 H [Left Brachial artery] O2 Saturation 90 L 95 07/04/21 07/04/21 07/04/21 09:00 10:00 11:00 Temperature Heart Rate [ 60 68 60 Monitoring electrodes] Respiratory 20 18 14 Rate Blood Pressure 151/75 H 162/62 H 118/71 [Left Brachial artery] O2 Saturation 90 L 93 99 07/04/21 07/04/21 07/04/21 12:00 13:00 14:00 Temperature 36.5 C Heart Rate [ 60 60 60 Monitoring electrodes] Respiratory 16 21 16 Rate Blood Pressure 126/62 131/91 H 114/59 L [Left Brachial artery] O2 Saturation 95 94 97 07/04/21 07/04/21 07/04/21 15:00 16:00 16:55 Temperature 36.6 C Heart Rate [ 60 60 60 Monitoring electrodes] Respiratory 16 15 14 Rate Blood Pressure 148/73 H 149/79 H [Left Brachial artery] O2 Saturation 96 92 97 07/04/21 07/04/21 18:00 19:00 Temperature Heart Rate [ 60 60 Monitoring electrodes] Respiratory 15 14 Rate Blood Pressure 158/70 H 148/65 H [Left Brachial artery] O2 Saturation 90 L 96 Oxygen O2 Source HHFNC Oxygen Flow Rate 2 I&O (Last 24 Hrs): Intake and Output Totals x24h 07/02/21 07/03/21 07/04/21 23:59 23:59 23:59 Intake Total 3387.000 1863 800 Output Total 2775 2700 860 Balance 612.000 -837 -60 General: Alert, Oriented x3, No acute distress HEENT: PERRLA, EOMI Neck: Supple, No JVD Neuro: Alert, Non Focal, Oriented Times 3, Other (intermittent tremor) Cardiovascular: Regular rate, Normal S1, Normal S2 Respiratory: Chest non-tender, Other (mild crackles. (Improved)) Abdomen: Normal bowel sounds, Soft, No tenderness, No masses Extremities: No clubbing, No cyanosis, No edema - Results Results: Laboratory Results WBC 12.6 x10^3/uL (4.8-10.8) H 07/04/21 04:53 RBC 4.48 10^6/uL (4.70-6.10) L 07/04/21 04:53 Hgb 13.3 g/dL (14.0-18.0) L 07/04/21 04:53 Hct 40.7 % (42.0-52.0) L 07/04/21 04:53 MCV 90.8 fL (80.0-94.0) 07/04/21 04:53 MCH 29.7 pg (27.0-31.0) 07/04/21 04:53 MCHC 32.7 g/dL (32.0-36.0) 07/04/21 04:53 RDW 12.8 % (12.0-15.0) 07/04/21 04:53 Plt Count 247 10^3/uL (130-450) 07/04/21 04:53 MPV 9.7 fL (7.4-11.4) 07/04/21 04:53 Neut # (Auto) Not Reportable 07/04/21 04:53 Lymph # (Auto) Not Reportable 07/04/21 04:53 [place] # (Auto) Not Reportable 07/04/21 04:53 Eos # (Auto) Not Reportable 07/04/21 04:53 Baso # (Auto) Not Reportable 07/04/21 04:53 Absolute Nucleated RBC Not Reportable 07/04/21 04:53 Total Counted 100 07/04/21 04:53 Band Neuts % (Manual) 2 % (0-10) 07/04/21 04:53 Abnorm Lymph % (Manual) 0 % 07/04/21 04:53 Nucleated RBC % Not Reportable 07/04/21 04:53 Neutrophils # (Manual) 11.2 10^3/uL (1.5-6.6) H 07/04/21 04:53 Lymphocytes # (Manual) 1.0 10^3/uL (1.5-3.5) L 07/04/21 04:53 Monocytes # (Manual) 0.4 10^3/uL (0.0-1.0) 07/04/21 04:53 Eosinophils # (Manual) 0.0 10^3/uL (0-0.7) 07/04/21 04:53 Basophils # (Manual) 0.0 10^3/uL (0-0.1) 07/04/21 04:53 Differential Comment MANUAL DIFFERENTIAL 07/04/21 04:53 WBC Morphology NORMAL APPEARANCE (NORMAL) 07/04/21 04:53 Platelet Estimate NORMAL (130-450,000) (NORMAL) 07/04/21 04:53 Platelet Morphology NORMAL APPEARANCE (NORMAL) 07/04/21 04:53 RBC Morph Micro Appear NORMAL APPEARANCE (NORMAL) 07/04/21 04:53 PT 20.6 secs (9.9-12.6) H 06/29/21 19:08 INR 1.9 (0.8-1.2) H 06/29/21 19:08 D-Dimer 241.4 ng/mL (200.0-255.0) 06/29/21 19:08 Bld Gas Analysis Time 0443 07/03/21 04:34 Sample Site RIGHT RADIAL 07/03/21 04:34 ABG pH 7.50 (7.35-7.45) H 07/03/21 04:34 ABG pCO2 35 mmHg (34-45) 07/03/21 04:34 ABG pO2 63 mmHg (80-100) L 07/03/21 04:34 ABG HCO3 26.6 mmol/L (22.0-26.0) H 07/03/21 04:34 ABG Total CO2 27.7 MMOL/L (21.0-29.0) 07/03/21 04:34 ABG O2 Saturation 93 % (94-98) L 07/03/21 04:34 ABG Base Excess 3.6 mmol/L (-2.0-3.0) H 07/03/21 04:34 Paulie Test POSITIVE 07/03/21 04:34 O2 Delivery Device NASAL CANNULA 07/03/21 04:34 FiO2 100.00 07/03/21 04:34 Sodium 140 mmol/L (135-145) 07/04/21 04:53 Potassium 4.1 mmol/L (3.5-5.0) 07/04/21 04:53 Chloride 103 mmol/L (101-111) 07/04/21 04:53 Carbon Dioxide 25 mmol/L (21-32) 07/04/21 04:53 Anion Gap 12.0 (6-13) 07/04/21 04:53 BUN 38 mg/dL (6-20) H 07/04/21 04:53 Creatinine 0.9 mg/dL (0.6-1.2) 07/04/21 04:53 Estimated GFR (MDRD) 82 (>89) L 07/04/21 04:53 Glucose 119 mg/dL (70-100) H 07/04/21 04:53 Lactic Acid 1.4 mmol/L (0.5-2.2) 06/29/21 19:08 Calcium 8.5 mg/dL (8.5-10.3) 07/04/21 04:53 Phosphorus 3.2 mg/dL (2.5-4.6) 07/04/21 04:53 Magnesium 2.3 mg/dL (1.7-2.8) 07/04/21 04:53 Total Bilirubin 1.1 mg/dL (0.2-1.0) H 07/04/21 04:53 Direct Bilirubin 0.3 mg/dL (0.1-0.5) 07/04/21 04:53 AST 57 IU/L (10-42) H 07/04/21 04:53 ALT 78 IU/L (10-60) H 07/04/21 04:53 Alkaline Phosphatase 91 IU/L (42-121) 07/04/21 04:53 C-Reactive Protein 4.0 mg/dL (0-1.0) H 07/04/21 04:53 Total Protein 6.1 g/dL (6.7-8.2) L 07/04/21 04:53 Albumin 3.0 g/dL (3.2-5.5) L 07/04/21 04:53 Globulin 3.1 g/dL (2.1-4.2) 07/04/21 04:53 Albumin/Globulin Ratio 1.2 (1.0-2.2) 06/29/21 19:08 TSH 0.69 uIU/mL (0.34-5.60) 07/03/21 04:30 Nasal Screen MRSA (PCR) NEGATIVE (NEGATIVE) 06/30/21 17:05 ABX Reporting Has patient been on IV antibiotics over the past 48 hours?: Yes
[2021-07-04] MEDS: ATORVASTATIN 10 MG TABLET PO SCH (20:35)
[2021-07-05] MEDS: SODIUM CHLORIDE FLUSH 0.9% 10 ML SYRINGE IVP SCH ×4 (04:44→20:58)
[2021-07-05] MEDS: LEVOTHYROXINE 25 MCG TABLET PO SCH (05:03)
[2021-07-05] MEDS: LORazepam 0.5 MG TABLET PO PRN ×2 (05:03→19:56)
[2021-07-05] MEDS: LEVOTHYROXINE 125 MCG TABLET PO SCH (05:04)
[2021-07-05] MEDS: oxyCODONE 5 MG TABLET PO PRN ×2 (05:04→19:56)
[2021-07-05 05:28] LABS: BASOPHILS % (AUTO) 0.2 %; HCT - HEMATOCRIT 40.9 % (42.0-52.0); HGB - HEMOGLOBIN 13.6 g/dL (14.0-18.0); LYMPHOCYTES % (AUTO) 9.2 %; MEAN CORPUSCULAR HEMOGLOBIN 30.3 pg (27.0-31.0); MEAN CORPUSCULAR HGB CONC 33.3 g/dL (32.0-36.0); MEAN CORPUSCULAR VOLUME 91.1 fL (80.0-94.0); MEAN PLATELET VOLUME 9.4 fL (7.4-11.4); NEUTROPHILS % (AUTO) 86.5 %; PLT - PLATELET COUNT 269 10^3/uL (130-450); RED BLOOD COUNT 4.49 10^6/uL (4.70-6.10); RED CELL DISTRIBUTION WIDTH 12.6 % (12.0-15.0); WHITE BLOOD COUNT 13.1 x10^3/uL (4.8-10.8)
[2021-07-05 05:32] LABS: ABNORMAL LYMPHS % (MANUAL) 0 %; BAND NEUTROPHILS % (MANUAL) 0 %
[2021-07-05 05:40] LABS: CALCIUM 8.6 mg/dL (8.5-10.3); CREATININE 0.8 mg/dL (0.6-1.2); CRP - C-REACTIVE PROTEIN 6.6 mg/dL (0-1.0); POTASSIUM 4.3 mmol/L (3.5-5.0)
[2021-07-05 05:53] LABS: LYMPHOCYTES # (MANUAL) 1.2 10^3/uL (1.5-3.5); LYMPHOCYTES % (MANUAL) 9 %; MONOCYTES # (MANUAL) 0.3 10^3/uL (0.0-1.0); MYELOCYTES % (MANUAL) 1 %; NEUTROPHILS # (MANUAL) 11.5 10^3/uL (1.5-6.6)
[2021-07-05 05:54] LABS: DIFFERENTIAL COMMENT MANUAL DIFFERENTIAL; PLATELET ESTIMATE, MANUAL NORMAL (130-450,000) (NORMAL); PLATELET MORPHOLOGY NORMAL APPEARANCE (NORMAL); RBC MORPHOLOGY (MULTIPLE) NORMAL APPEARANCE (NORMAL); WBC MORPHOLOGY (MULTIPLE) NORMAL APPEARANCE (NORMAL)
[2021-07-05] MEDS: cefTRIAXone 2 GM in SODIUM CHLORIDE 0.9% MINIBAG 100 ML IV SCH (08:05)
[2021-07-05] MEDS: DEXAMETHASONE 10 MG/ML VIAL IVP SCH (08:07)
[2021-07-05] MEDS: diltiaZEM CD 180 MG CAPSULE PO SCH (08:54)
[2021-07-05] MEDS: APIXABAN 5 MG TABLET PO SCH ×2 (08:54→19:56)
[2021-07-05] MEDS: CHOLECALCIFEROL 25 MCG TABLET PO SCH (08:55)
[2021-07-05] MEDS: TAMSULOSIN 0.4 MG CAPSULE PO SCH (08:55)
[2021-07-05] MEDS: FLECAINIDE 50 MG TABLET PO SCH ×2 (08:56→19:56)
[2021-07-05] MEDS: guaiFENesin 600 MG TABLET PO SCH ×2 (08:56→19:56)
[2021-07-05] MEDS: AZITHROMYCIN 250 MG TABLET PO SCH (08:56)
[2021-07-05] MEDS: LACTOBACILLUS RHAMNOSUS GG CAPSULE PO SCH (08:57)
[2021-07-05 16:49] LABS: ABG PCO2 36 mmHg (34-45); ABG PH 7.45 (7.35-7.45)
[2021-07-05 16:50] LABS: ABG HCO3 24.6 mmol/L (22.0-26.0); ABG TCO2 25.7 MMOL/L (21.0-29.0); ALLEN TEST POSITIVE
[2021-07-05 16:56] LABS: ABG PO2 43 mmHg (80-100)
[2021-07-05 16:57] LABS: ABG OXYGEN SATURATION 80 % (94-98)
[2021-07-05] MEDS ORDERED: LORazepam 2 MG/ML VIAL IVP ONE (17:20)
[2021-07-05] MEDS ORDERED: LORazepam 2 MG/ML VIAL ONE (17:25)
[2021-07-05] MEDS ORDERED: LORazepam 2 MG/ML VIAL IVP STA ×2 (17:25→17:30)
[2021-07-05 19:19] LABS: ABG PH 7.47 (7.35-7.45)
[2021-07-05 19:20] LABS: ABG BASE EXCESS 2.5 mmol/L (-2.0-3.0); ABG HCO3 25.8 mmol/L (22.0-26.0); ABG OXYGEN SATURATION 95 % (94-98); ABG PCO2 36 mmHg (34-45); ABG PO2 77 mmHg (80-100); ALLEN TEST POSITIVE
[2021-07-05 19:21] LABS: ABG RESPIRATORY RATE 12 b/min
--- NOTE | 2021-07-05 19:43 | PROVIDER PROGRESS NOTE ---
Assessment/Plan - Problem List (1) Acute respiratory failure with hypoxia Assessment/Plan: He has required an increase of his high flow cannula to 100% FiO2. Later today, He tried using a bedside commode for the first time and had near syncope while on the commode, eyes rolled back. He was helped quickly back to bed. He desaturated to below 80%, recovered quickly when resting. I witnessed his air hunger and struggling today, thus he has been put on BiPAP starting this evening Will add IV Ativan as needed for what he is worried about which is panic attacks while he is on BiPAP. Continue with Decadron, he is finished 5 days of Remdesivir. (2) COVID-19 Assessment/Plan: Tenuous resp status needing incre=aing supplemental oxygen as described above. He has required increase of supplemental oxygen by being put on BiPAP today. He is unable to lay prone because of low back pain. Continue with Decadron, he is finished 5 days of Remdesivir. (3) History of atrial fibrillation Assessment/Plan: Oliver on Cardizem, flecainide, DOAC for anticoagulation. His rhythm is dual- chamber paced (4) HTN (hypertension) Qualifiers: Hypertension type: primary hypertension Qualified Code(s): I10 - Essential (primary) hypertension Assessment/Plan: His usual meds are ordered and there is good blood pressure control (5) Hypothyroid Assessment/Plan: He continues on his home dose of Synthroid replacement - Current Meds Current Meds: Current Medications Generic Name Dose Route Start Last Admin Trade Name Freq PRN Reason Stop Dose Admin Acetaminophen 650 mg 06/29/21 19:51 07/04/21 09:19 Acetaminophen 325 Mg Tablet PO 650 mg Q4HR PRN Administration Pain 1 to 4 Apixaban 5 mg 06/29/21 21:00 07/05/21 08:54 Apixaban 5 Mg Tablet PO 5 mg BID ZENOBIA Administration Atorvastatin Calcium 10 mg 06/30/21 21:00 07/04/21 20:35 Atorvastatin 10 Mg Tablet PO 10 mg QPM ZENOBIA Administration Azithromycin 250 mg 07/04/21 09:00 07/05/21 08:56 Azithromycin 250 Mg Tablet PO 07/07/21 09:01 250 mg DAILY ZENOBIA Administration Cholecalciferol 50 mcg 07/01/21 09:00 07/05/21 08:55 Cholecalciferol 25 Mcg Tablet PO 50 mcg DAILY ZENOBIA Administration Dexamethasone 6 mg 06/30/21 09:00 07/05/21 08:07 Dexamethasone 10 Mg/Ml Vial IVP 07/09/21 09:01 6 mg DAILY ZENOBIA Administration Diltiazem HCl 180 mg 07/01/21 09:00 07/05/21 08:54 Diltiazem Cd 180 Mg Capsule PO 180 mg DAILY ZENOBIA Administration Flecainide Acetate 100 mg 06/30/21 21:00 07/05/21 08:56 Flecainide 50 Mg Tablet PO 100 mg BID ZENOBIA Administration Guaifenesin 600 mg 07/03/21 09:00 07/05/21 08:56 Guaifenesin 600 Mg Tablet PO 600 mg BID ZENOBIA Administration Guaifenesin/Codeine Phosphate 5 ml 06/29/21 21:34 07/03/21 06:13 Guaifenesin/Codeine 5 Ml Udc PO 5 ml Q6HR PRN Administration Cough Ceftriaxone Sodium 2 gm/ 100 mls @ 200 mls/hr 07/03/21 09:00 07/05/21 08:35 Sodium Chloride IV Infused DAILY ZENOBIA Infusion Lactobacillus Rhamnosus 1 cap 07/01/21 16:00 07/05/21 08:57 Lactobacillus Rhamnosus Gg Capsule PO 1 cap DAILY ZENOBIA Administration Levothyroxine Sodium 125 mcg 06/30/21 07:00 07/05/21 05:04 Levothyroxine 125 Mcg Tablet PO 125 mcg QDAC ZENOBIA Administration Levothyroxine Sodium 25 mcg 06/30/21 07:00 07/05/21 05:03 Levothyroxine 25 Mcg Tablet PO 25 mcg QDAC ZENOBIA Administration Lorazepam 0.5 mg 07/04/21 07:36 07/05/21 05:03 Lorazepam 0.5 Mg Tablet PO 0.5 mg Q8H PRN Administration Anxiety Oxycodone HCl 5 mg 06/29/21 19:51 07/05/21 05:04 Oxycodone 5 Mg Tablet PO 5 mg Q4HR PRN Administration Pain 5 to 7 Sodium Chloride 10 ml 06/30/21 01:00 07/05/21 17:00 Sodium Chloride Flush 0.9% 10 Ml Syringe IVP 10 ml 0100,0900,1700 ZENOBIA Administration Tamsulosin HCl 0.4 mg 07/01/21 09:00 07/05/21 08:55 Tamsulosin 0.4 Mg Capsule PO 0.4 mg DAILY ZENOBIA Administration Throat Lozenges 1 lozenge 06/30/21 02:24 07/03/21 17:07 Benzocaine/Menthol Lozenge MM 1 lozenge Q2HR PRN Administration Throat pain - Lab Result Fish Bone Diagrams: 07/06/21 09:34 07/06/21 09:34 - Additional Planning My Orders: My Active Orders 07/05/21 17:04 BiPAP [BiPAP/CPAP] [RC] Q2HR Subjective - Subjective Patient Reports: Shortness of Breath, Other (Is more sleepy today and when he awakens gets panic attacks) Objective Vital Signs: Vital Signs - 24 hr 07/04/21 07/04/21 07/04/21 20:00 21:00 22:06 Temperature Heart Rate Heart Rate [ 60 60 60 Monitoring electrodes] Respiratory 13 17 13 Rate Blood Pressure 156/75 H 161/75 H 149/64 H [Left Brachial artery] O2 Saturation 93 93 93 07/04/21 07/05/21 07/05/21 23:00 00:00 01:00 Temperature Heart Rate Heart Rate [ 60 60 60 Monitoring electrodes] Respiratory 14 16 15 Rate Blood Pressure 155/65 H 154/71 H 141/67 H [Left Brachial artery] O2 Saturation 92 88 L 87 L 07/05/21 07/05/21 07/05/21 02:00 03:00 04:00 Temperature Heart Rate Heart Rate [ 60 60 60 Monitoring electrodes] Respiratory 21 14 15 Rate Blood Pressure 155/74 H 123/72 124/74 [Left Brachial artery] O2 Saturation 90 L 88 L 91 L 07/05/21 07/05/21 07/05/21 05:00 06:00 07:00 Temperature 37.2 C Heart Rate Heart Rate [ 60 61 60 Monitoring electrodes] Respiratory 21 18 15 Rate Blood Pressure 122/71 127/67 118/70 [Left Brachial artery] O2 Saturation 90 L 91 L 91 L 07/05/21 07/05/21 07/05/21 08:00 09:00 10:00 Temperature 37 C Heart Rate Heart Rate [ 60 60 60 Monitoring electrodes] Respiratory 13 22 18 Rate Blood Pressure 130/70 123/80 134/75 H [Left Brachial artery] O2 Saturation 90 L 86 L 89 L 07/05/21 07/05/21 07/05/21 11:00 12:00 13:00 Temperature Heart Rate Heart Rate [ 60 60 60 Monitoring electrodes] Respiratory 14 16 18 Rate Blood Pressure 140/69 H 147/69 H 124/62 [Left Brachial artery] O2 Saturation 94 63 L 90 L 07/05/21 07/05/21 07/05/21 14:00 15:00 16:00 Temperature Heart Rate Heart Rate [ 60 60 60 Monitoring electrodes] Respiratory 16 18 18 Rate Blood Pressure 135/68 H 118/67 104/64 [Left Brachial artery] O2 Saturation 94 91 L 93 07/05/21 07/05/21 07/05/21 17:00 17:25 17:31 Temperature Heart Rate 60 Heart Rate [ 60 Monitoring electrodes] Respiratory 15 22 Rate Blood Pressure 127/65 [Left Brachial artery] O2 Saturation 96 97 07/05/21 07/05/21 07/05/21 17:35 17:40 18:00 Temperature Heart Rate Heart Rate [ 60 Monitoring electrodes] Respiratory 22 22 19 Rate Blood Pressure 120/70 [Left Brachial artery] O2 Saturation 92 90 L 90 L 07/05/21 19:00 Temperature Heart Rate Heart Rate [ 60 Monitoring electrodes] Respiratory 24 Rate Blood Pressure 112/58 L [Left Brachial artery] O2 Saturation 90 L Oxygen O2 Source BIPAP Oxygen Flow Rate 2 I&O (Last 24 Hrs): Intake and Output Totals x24h 07/03/21 07/04/21 07/05/21 23:59 23:59 23:59 Intake Total 1863 1100 480 Output Total 2700 985 1175 Balance -837 115 -695 General: Moderate distress (He has tachypnea and is coughing more, Then is struggling with shortness of breath after he finishes cough), Other (Flushed face, appears anxious) HEENT: Mucous membr. moist/pink, Other (Face is flushed) Neck: Supple Neuro: Alert, Non Focal Cardiovascular: Regular rate Respiratory: Other (Breath sounds bilaterally anteriorly) Abdomen: Soft, No tenderness Extremities: No edema - Results Results: Laboratory Results WBC 13.1 x10^3/uL (4.8-10.8) H 07/05/21 04:38 RBC 4.49 10^6/uL (4.70-6.10) L 07/05/21 04:38 Hgb 13.6 g/dL (14.0-18.0) L 07/05/21 04:38 Hct 40.9 % (42.0-52.0) L 07/05/21 04:38 MCV 91.1 fL (80.0-94.0) 07/05/21 04:38 MCH 30.3 pg (27.0-31.0) 07/05/21 04:38 MCHC 33.3 g/dL (32.0-36.0) 07/05/21 04:38 RDW 12.6 % (12.0-15.0) 07/05/21 04:38 Plt Count 269 10^3/uL (130-450) 07/05/21 04:38 MPV 9.4 fL (7.4-11.4) 07/05/21 04:38 Neut # (Auto) Not Reportable 07/05/21 04:38 Lymph # (Auto) Not Reportable 07/05/21 04:38 [place] # (Auto) Not Reportable 07/05/21 04:38 Eos # (Auto) Not Reportable 07/05/21 04:38 Baso # (Auto) Not Reportable 07/05/21 04:38 Absolute Nucleated RBC Not Reportable 07/05/21 04:38 Total Counted 100 07/05/21 04:38 Band Neuts % (Manual) 0 % (0-10) 07/05/21 04:38 Abnorm Lymph % (Manual) 0 % 07/05/21 04:38 Myelocytes % 1 % (-0) H 07/05/21 04:38 Nucleated RBC % Not Reportable 07/05/21 04:38 Neutrophils # (Manual) 11.5 10^3/uL (1.5-6.6) H 07/05/21 04:38 Lymphocytes # (Manual) 1.2 10^3/uL (1.5-3.5) L 07/05/21 04:38 Monocytes # (Manual) 0.3 10^3/uL (0.0-1.0) 07/05/21 04:38 Eosinophils # (Manual) 0.0 10^3/uL (0-0.7) 07/05/21 04:38 Basophils # (Manual) 0.0 10^3/uL (0-0.1) 07/05/21 04:38 Differential Comment MANUAL DIFFERENTIAL 07/05/21 04:38 WBC Morphology NORMAL APPEARANCE (NORMAL) 07/05/21 04:38 Platelet Estimate NORMAL (130-450,000) (NORMAL) 07/05/21 04:38 Platelet Morphology NORMAL APPEARANCE (NORMAL) 07/05/21 04:38 RBC Morph Micro Appear NORMAL APPEARANCE (NORMAL) 07/05/21 04:38 PT 20.6 secs (9.9-12.6) H 06/29/21 19:08 INR 1.9 (0.8-1.2) H 06/29/21 19:08 D-Dimer 241.4 ng/mL (200.0-255.0) 06/29/21 19:08 Bld Gas Analysis Time 191807/05/21 19:10 Sample Site LEFT RADIAL 07/05/21 19:10 ABG pH 7.47 (7.35-7.45) H 07/05/21 19:10 ABG pCO2 36 mmHg (34-45) 07/05/21 19:10 ABG pO2 77 mmHg (80-100) L 07/05/21 19:10 ABG HCO3 25.8 mmol/L (22.0-26.0) 07/05/21 19:10 ABG Total CO2 27.0 MMOL/L (21.0-29.0) 07/05/21 19:10 ABG O2 Saturation 95 % (94-98) 07/05/21 19:10 ABG Base Excess 2.5 mmol/L (-2.0-3.0) 07/05/21 19:10 Paulie Test POSITIVE 07/05/21 19:10 Respiration Rate 12 b/min 07/05/21 19:10 O2 Delivery Device BiPAP 07/05/21 19:10 O2 Liters/Min 50.00 LPM 07/05/21 16:37 FiO2 80.00 07/05/21 19:10 EPAP 5 cmH2O 07/05/21 19:10 IPAP 10 cmH2O 07/05/21 19:10 Sodium 139 mmol/L (135-145) 07/05/21 04:38 Potassium 4.3 mmol/L (3.5-5.0) 07/05/21 04:38 Chloride 102 mmol/L (101-111) 07/05/21 04:38 Carbon Dioxide 26 mmol/L (21-32) 07/05/21 04:38 Anion Gap 11.0 (6-13) 07/05/21 04:38 BUN 35 mg/dL (6-20) H 07/05/21 04:38 Creatinine 0.8 mg/dL (0.6-1.2) 07/05/21 04:38 Estimated GFR (MDRD) 94 (>89) 07/05/21 04:38 Glucose 136 mg/dL (70-100) H 07/05/21 04:38 Lactic Acid 1.4 mmol/L (0.5-2.2) 06/29/21 19:08 Calcium 8.6 mg/dL (8.5-10.3) 07/05/21 04:38 Phosphorus 3.2 mg/dL (2.5-4.6) 07/04/21 04:53 Magnesium 2.3 mg/dL (1.7-2.8) 07/04/21 04:53 Total Bilirubin 1.1 mg/dL (0.2-1.0) H 07/04/21 04:53 Direct Bilirubin 0.3 mg/dL (0.1-0.5) 07/04/21 04:53 AST 57 IU/L (10-42) H 07/04/21 04:53 ALT 78 IU/L (10-60) H 07/04/21 04:53 Alkaline Phosphatase 91 IU/L (42-121) 07/04/21 04:53 C-Reactive Protein 6.6 mg/dL (0-1.0) H 07/05/21 04:38 Total Protein 6.1 g/dL (6.7-8.2) L 07/04/21 04:53 Albumin 3.0 g/dL (3.2-5.5) L 07/04/21 04:53 Globulin 3.1 g/dL (2.1-4.2) 07/04/21 04:53 Albumin/Globulin Ratio 1.2 (1.0-2.2) 06/29/21 19:08 TSH 0.69 uIU/mL (0.34-5.60) 07/03/21 04:30 Nasal Screen MRSA (PCR) NEGATIVE (NEGATIVE) 06/30/21 17:05
[2021-07-05] MEDS: ATORVASTATIN 10 MG TABLET PO SCH (19:56)
[2021-07-05] MEDS: LORazepam 2 MG/ML VIAL IVP PRN ×2 (20:57→23:14)
[2021-07-05] MEDS: SODIUM CHLORIDE FLUSH 0.9% 10 ML SYRINGE IVP PRN (23:15)
[2021-07-06] MEDS: SODIUM CHLORIDE FLUSH 0.9% 10 ML SYRINGE IVP PRN ×4 (02:08→18:04)
[2021-07-06] MEDS: LORazepam 2 MG/ML VIAL IVP PRN ×11 (02:08→18:03)
[2021-07-06] MEDS: SODIUM CHLORIDE FLUSH 0.9% 10 ML SYRINGE IVP SCH ×3 (04:42→17:00)
[2021-07-06] MEDS: LEVOTHYROXINE 25 MCG TABLET PO SCH (05:42)
[2021-07-06] MEDS: LEVOTHYROXINE 125 MCG TABLET PO SCH (05:42)
[2021-07-06] MEDS: cefTRIAXone 2 GM in SODIUM CHLORIDE 0.9% MINIBAG 100 ML IV SCH (07:50)
[2021-07-06] MEDS: DEXAMETHASONE 10 MG/ML VIAL IVP SCH (07:50)
[2021-07-06 09:50] LABS: BASOPHILS % (AUTO) 0.2 %; HGB - HEMOGLOBIN 14.1 g/dL (14.0-18.0); LYMPHOCYTES # (AUTO) 0.9 10^3/uL (1.5-3.5); MEAN CORPUSCULAR HEMOGLOBIN 29.9 pg (27.0-31.0); MEAN CORPUSCULAR HGB CONC 32.8 g/dL (32.0-36.0); MEAN CORPUSCULAR VOLUME 91.3 fL (80.0-94.0); MEAN PLATELET VOLUME 9.6 fL (7.4-11.4); MONOCYTES # (AUTO) 0.3 10^3/uL (0.0-1.0); MONOCYTES % (AUTO) 2.4 %; NEUTROPHILS # (AUTO) 12.8 10^3/uL (1.5-6.6); NEUTROPHILS % (AUTO) 90.4 %; PLT - PLATELET COUNT 274 10^3/uL (130-450); RED BLOOD COUNT 4.71 10^6/uL (4.70-6.10); RED CELL DISTRIBUTION WIDTH 12.6 % (12.0-15.0); WHITE BLOOD COUNT 14.2 x10^3/uL (4.8-10.8)
[2021-07-06] MEDS: APIXABAN 5 MG TABLET PO SCH (10:17)
[2021-07-06] MEDS: CHOLECALCIFEROL 25 MCG TABLET PO SCH (10:18)
[2021-07-06] MEDS: guaiFENesin 600 MG TABLET PO SCH (10:18)
[2021-07-06] MEDS: diltiaZEM CD 180 MG CAPSULE PO SCH (10:18)
[2021-07-06] MEDS: AZITHROMYCIN 250 MG TABLET PO SCH (10:18)
[2021-07-06] MEDS: FLECAINIDE 50 MG TABLET PO SCH (10:18)
[2021-07-06] MEDS: LACTOBACILLUS RHAMNOSUS GG CAPSULE PO SCH (10:18)
[2021-07-06] MEDS: TAMSULOSIN 0.4 MG CAPSULE PO SCH (10:19)
[2021-07-06 11:09] LABS: CALCIUM 8.5 mg/dL (8.5-10.3); CREATININE 0.8 mg/dL (0.6-1.2); POTASSIUM 4.2 mmol/L (3.5-5.0)
[2021-07-06] MEDS ORDERED: ACETAMINOPHEN 1,000 MG/100 ML 100 ML IV PRN (11:46)
[2021-07-06 12:03] LABS: ABG BASE EXCESS 0.9 mmol/L (-2.0-3.0); ABG HCO3 24.5 mmol/L (22.0-26.0); ABG OXYGEN SATURATION 89 % (94-98); ABG PCO2 36 mmHg (34-45); ABG PH 7.45 (7.35-7.45); ABG PO2 57 mmHg (80-100); ABG TCO2 25.6 MMOL/L (21.0-29.0)
[2021-07-06 12:04] LABS: ABG RESPIRATORY RATE 12 b/min; ALLEN TEST POSITIVE
--- NOTE | 2021-07-06 13:26 | ANESTHESIA PROCEDURE NOTE ---
Anesth Central Line Template - Central Line Central Line Preparation: Consent Obtained, Time out completed, Ultrasound used, Sterile prep and drape Central line location: Right Basilic Central line type: PICC Double Lumen Central line catheter tip site resides: Superior vena cava (SVC) Central line aftercare: Secured, Placement confirmed, No pneumothorax, No complications, Bundle checklist complete, Pt tolerated well
--- NOTE | 2021-07-06 13:39 | XRAY Report ---
PROCEDURE: Chest for Line Placement INDICATIONS: PICC line placement TECHNIQUE: One view of the chest was acquired. COMPARISON: 07/03/2021, 06/29/2021, 06/27/2021 FINDINGS: Surgical changes and devices: A right-sided PICC line has been placed. The tip is seen overlying the mid aspect of the superior vena cava, 4 cm above the cavoatrial junction. A pacer device can be seen. The leads are seen in the expected positions. Lungs and pleura: No pleural effusions or pneumothorax. Patchy bilateral interstitial type infiltrat es are seen, which are similar to the prior examination. On the semiupright images, no large pneumoth orax or large pleural effusions can be seen. Low lung volumes can be seen, causing a crowded appearan ce to the lung markings. Mediastinum: The aorta is prominent and tortuous. The cardiac contours are within normal limits. Bones and chest wall: No suspicious bony lesions. Age-appropriate degenerative changes are seen. O verlying soft tissues appear unremarkable. IMPRESSION: The tip of the right-sided PICC line can be seen overlying the mid aspect of the superior vena cava. Bilateral infiltrates are seen, which are similar to the prior examination. Reviewed by: David Priest MD on 07/06/2021 12:38 PM NIC Approved by: David Priest MD on 07/06/2021 12:38 PM NIC Station ID: [id number]
--- NOTE | 2021-07-06 15:18 | PROVIDER PROGRESS NOTE ---
Assessment/Plan - Problem List (1) Acute respiratory failure with hypoxia Assessment/Plan: Because of "panic attacks", he needed Ativan 0.5 mg frequently to prevent him from taking off the BiPAP last evening. He was able to sleep all night with the BiPAP on. He is too somnolent this morning to be administered his p.o. meds. Continue with BiPAP for high supplemental oxygen amounts needed. Will obtain ABG because of his somnolence. We will decrease the frequency of the Ativan use and other sedating meds like narcotics. Because he is so somnolent, will change his p.o. meds to just essential meds and given by IV. There is no iv form of flecainide Since he has had very poor nutrition and now will be n.p.o. because of the BiPAP, will start PPN Will order PICC line insertion today; he cannot lie flat for CVP line insertion (2) COVID-19 Assessment/Plan: He has finished 5 days of remdesivir. He remains on about his seventh of 10 days of Decadron. Continue with supplemental oxygen with increased needs as described above in #1. He is unable to prone because of back pain and discomfort laying in that position. Will follow daily morning ABG (3) History of atrial fibrillation Assessment/Plan: His Cardizem p.o. and flecainide p.o. and Eliquis p.o. have to be stopped today because of somnolence and needing the BiPAP. We will switch to IV therapeutic Lovenox dosing and IV beta-johnny dosing (4) HTN (hypertension) Qualifiers: Hypertension type: primary hypertension Qualified Code(s): I10 - Essential (primary) hypertension Assessment/Plan: Will stop his p.o. blood pressure meds and use IV forms for blood pressure control (5) Hypothyroid Assessment/Plan: We will stop his daily p.o. AC Synthroid and use IV Synthroid q. 5 days - Current Meds Current Meds: Current Medications Generic Name Dose Route Start Last Admin Trade Name Freq PRN Reason Stop Dose Admin Azithromycin 250 mg 07/04/21 09:00 07/06/21 10:18 Azithromycin 250 Mg Tablet PO 07/07/21 09:01 Not Given DAILY ZENOBIA Dexamethasone 6 mg 06/30/21 09:00 07/06/21 07:50 Dexamethasone 10 Mg/Ml Vial IVP 07/09/21 09:01 6 mg DAILY ZENOBIA Administration Guaifenesin/Codeine Phosphate 5 ml 06/29/21 21:34 07/03/21 06:13 Guaifenesin/Codeine 5 Ml Udc PO 5 ml Q6HR PRN Administration Cough Ceftriaxone Sodium 2 gm/ 100 mls @ 200 mls/hr 07/03/21 09:00 07/06/21 08:20 Sodium Chloride IV Infused DAILY ZENOBIA Infusion Lorazepam 0.5 mg 07/06/21 11:43 07/06/21 13:16 Lorazepam 2 Mg/Ml Vial IVP 0.5 mg Q2H PRN Administration Anxiety Sodium Chloride 10 ml 06/29/21 19:51 07/06/21 05:42 Sodium Chloride Flush 0.9% 10 Ml Syringe IVP 10 ml PRN PRN Administration NEEDED PER PROVIDER ORDERS Sodium Chloride 10 ml 06/30/21 01:00 07/06/21 10:25 Sodium Chloride Flush 0.9% 10 Ml Syringe IVP 10 ml 0100,0900,1700 ZENOBIA Administration Throat Lozenges 1 lozenge 06/30/21 02:24 07/03/21 17:07 Benzocaine/Menthol Lozenge MM 1 lozenge Q2HR PRN Administration Throat pain - Lab Result Fish Bone Diagrams: 07/06/21 09:34 07/06/21 09:34 - Additional Planning My Orders: My Active Orders 07/05/21 17:04 BiPAP [BiPAP/CPAP] [RC] Q2HR 07/06/21 11:25 PICC Line Care [RC] Q4H PICC Line Insert [RC] .ONCE 07/06/21 11:39 Miscellaenous Nursing Order [RC] QSHIFT DIET [NPO except Meds] [DIET] 07/06/21 11:43 LORazepam INJ [Ativan Inj (Vial)] 0.5 mg IVP Q2H PRN 07/06/21 11:46 Acetaminophen 1,000 mg/100 ml [Ofirmev] 100 ml IV Q6HR 07/06/21 11:48 HYDROmorphone 0.5MG SYRINGE [Dilaudid 0.5MG Syringe] 0.5 mg IVP Q8H PRN 07/06/21 19:00 Ppn (Clinimix E 4.25/5) [Clinimix E 4.25%-5% Solution] 2,000 ml IV Q24H 07/06/21 21:00 Enoxaparin [Lovenox] 80 mg SUBQ BID 07/06/21 22:00 Metoprolol Inj [Lopressor Inj] 5 mg IVP 0600,1400,2200 07/10/21 07:00 Levothyroxine Inj [Synthroid Inj] 150 mcg IVP Q5D Subjective - Subjective Patient Reports: Other (mostly sleeping) Objective Vital Signs: Vital Signs - 24 hr 07/05/21 07/05/21 07/05/21 16:00 17:00 17:25 Temperature Heart Rate Heart Rate [ 60 60 Monitoring electrodes] Respiratory 18 15 22 Rate Blood Pressure 104/64 127/65 [Left Brachial artery] O2 Saturation 93 96 97 07/05/21 07/05/21 07/05/21 17:31 17:35 17:40 Temperature Heart Rate 60 Heart Rate [ Monitoring electrodes] Respiratory 22 22 Rate Blood Pressure [Left Brachial artery] O2 Saturation 92 90 L 07/05/21 07/05/21 07/05/21 18:00 19:00 19:51 Temperature Heart Rate 60 Heart Rate [ 60 60 Monitoring electrodes] Respiratory 19 24 Rate Blood Pressure 120/70 112/58 L [Left Brachial artery] O2 Saturation 90 L 90 L 07/05/21 07/05/21 07/05/21 20:00 21:00 22:00 Temperature 36.7 C Heart Rate Heart Rate [ 67 60 60 Monitoring electrodes] Respiratory 24 17 19 Rate Blood Pressure 140/69 H 123/78 116/69 [Left Brachial artery] O2 Saturation 88 L 90 L 93 07/05/21 07/05/21 07/06/21 23:00 23:32 00:00 Temperature 36.7 C Heart Rate 60 Heart Rate [ 60 60 Monitoring electrodes] Respiratory 17 16 Rate Blood Pressure 111/59 L 100/61 [Left Brachial artery] O2 Saturation 92 88 L 07/06/21 07/06/21 07/06/21 01:00 02:00 03:00 Temperature Heart Rate 70 Heart Rate [ 60 60 60 Monitoring electrodes] Respiratory 15 16 19 Rate Blood Pressure 131/66 H 131/67 H 109/60 [Left Brachial artery] O2 Saturation 92 89 L 92 07/06/21 07/06/21 07/06/21 04:00 05:00 06:00 Temperature Heart Rate 72 Heart Rate [ 60 71 59 L Monitoring electrodes] Respiratory 16 32 H 71 H Rate Blood Pressure 112/65 88/73 L 119/94 H [Left Brachial artery] O2 Saturation 89 L 87 L 95 07/06/21 07/06/21 07/06/21 07:00 08:00 09:00 Temperature 36.7 C 36.0 C L Heart Rate Heart Rate [ 60 60 70 Monitoring electrodes] Respiratory 15 15 18 Rate Blood Pressure 135/60 H 138/66 H [Left Brachial artery] O2 Saturation 91 L 91 L 92 07/06/21 07/06/21 07/06/21 09:31 10:00 11:00 Temperature Heart Rate 60 Heart Rate [ 63 60 Monitoring electrodes] Respiratory 25 H 25 H Rate Blood Pressure 102/64 125/64 [Left Brachial artery] O2 Saturation 90 L 92 07/06/21 07/06/21 07/06/21 11:51 12:00 13:00 Temperature 36.7 C Heart Rate 60 Heart Rate [ 60 60 Monitoring electrodes] Respiratory 18 22 Rate Blood Pressure 134/63 H 122/68 [Left Brachial artery] O2 Saturation 90 L 93 07/06/21 07/06/21 14:00 14:16 Temperature Heart Rate 60 Heart Rate [ 60 Monitoring electrodes] Respiratory 18 Rate Blood Pressure 131/67 H [Left Brachial artery] O2 Saturation 93 Oxygen O2 Source HHFNC Oxygen Flow Rate 2 I&O (Last 24 Hrs): Intake and Output Totals x24h 07/04/21 07/05/21 07/06/21 23:59 23:59 23:59 Intake Total 1100 780 250 Output Total 985 1300 0 Balance 115 -520 250 General: Other (sleepythen awakens and pulld on mask, not alert to swallow meds (EXAM done REMOTELY)) HEENT: Mucous membr. moist/pink, Other (Face flushed) Neck: Supple Neuro: Other (Somnolent, intermittently awakens and moves all extremities spontaneous) Cardiovascular: Regular rate (Dual-chamber paced rhythm) Respiratory: Other (Poor breath sounds) Abdomen: Soft Extremities: No clubbing, No edema - Results Results: Laboratory Results WBC 14.2 x10^3/uL (4.8-10.8) H 07/06/21 09:34 RBC 4.71 10^6/uL (4.70-6.10) 07/06/21 09:34 Hgb 14.1 g/dL (14.0-18.0) 07/06/21 09:34 Hct 43.0 % (42.0-52.0) 07/06/21 09:34 MCV 91.3 fL (80.0-94.0) 07/06/21 09:34 MCH 29.9 pg (27.0-31.0) 07/06/21 09:34 MCHC 32.8 g/dL (32.0-36.0) 07/06/21 09:34 RDW 12.6 % (12.0-15.0) 07/06/21 09:34 Plt Count 274 10^3/uL (130-450) 07/06/21 09:34 MPV 9.6 fL (7.4-11.4) 07/06/21 09:34 Neut # (Auto) 12.8 10^3/uL (1.5-6.6) H 07/06/21 09:34 Lymph # (Auto) 0.9 10^3/uL (1.5-3.5) L 07/06/21 09:34 [place] # (Auto) 0.3 10^3/uL (0.0-1.0) 07/06/21 09:34 Eos # (Auto) 0.0 10^3/uL (0.0-0.7) 07/06/21 09:34 Baso # (Auto) 0.0 10^3/uL (0.0-0.1) 07/06/21 09:34 Absolute Nucleated RBC 0.00 x10^3/uL 07/06/21 09:34 Total Counted 100 07/05/21 04:38 Band Neuts % (Manual) 0 % (0-10) 07/05/21 04:38 Abnorm Lymph % (Manual) 0 % 07/05/21 04:38 Myelocytes % 1 % (-0) H 07/05/21 04:38 Nucleated RBC % 0.0 /100WBC 07/06/21 09:34 Neutrophils # (Manual) 11.5 10^3/uL (1.5-6.6) H 07/05/21 04:38 Lymphocytes # (Manual) 1.2 10^3/uL (1.5-3.5) L 07/05/21 04:38 Monocytes # (Manual) 0.3 10^3/uL (0.0-1.0) 07/05/21 04:38 Eosinophils # (Manual) 0.0 10^3/uL (0-0.7) 07/05/21 04:38 Basophils # (Manual) 0.0 10^3/uL (0-0.1) 07/05/21 04:38 Differential Comment MANUAL DIFFERENTIAL 07/05/21 04:38 WBC Morphology NORMAL APPEARANCE (NORMAL) 07/05/21 04:38 Platelet Estimate NORMAL (130-450,000) (NORMAL) 07/05/21 04:38 Platelet Morphology NORMAL APPEARANCE (NORMAL) 07/05/21 04:38 RBC Morph Micro Appear NORMAL APPEARANCE (NORMAL) 07/05/21 04:38 PT 20.6 secs (9.9-12.6) H 06/29/21 19:08 INR 1.9 (0.8-1.2) H 06/29/21 19:08 D-Dimer 241.4 ng/mL (200.0-255.0) 06/29/21 19:08 Bld Gas Analysis Time 1202 07/06/21 11:55 Sample Site RIGHT RADIAL 07/06/21 11:55 ABG pH 7.45 (7.35-7.45) 07/06/21 11:55 ABG pCO2 36 mmHg (34-45) 07/06/21 11:55 ABG pO2 57 mmHg (80-100) L 07/06/21 11:55 ABG HCO3 24.5 mmol/L (22.0-26.0) 07/06/21 11:55 ABG Total CO2 25.6 MMOL/L (21.0-29.0) 07/06/21 11:55 ABG O2 Saturation 89 % (94-98) L 07/06/21 11:55 ABG Base Excess 0.9 mmol/L (-2.0-3.0) 07/06/21 11:55 Paulie Test POSITIVE 07/06/21 11:55 Respiration Rate 12 b/min 07/06/21 11:55 O2 Delivery Device BiPAP 07/06/21 11:55 O2 Liters/Min 50.00 LPM 07/05/21 16:37 FiO2 80.00 07/06/21 11:55 EPAP 5 cmH2O 07/06/21 11:55 IPAP 10 cmH2O 07/06/21 11:55 Sodium 141 mmol/L (135-145) 07/06/21 09:34 Potassium 4.2 mmol/L (3.5-5.0) 07/06/21 09:34 Chloride 105 mmol/L (101-111) 07/06/21 09:34 Carbon Dioxide 22 mmol/L (21-32) 07/06/21 09:34 Anion Gap 14.0 (6-13) H 07/06/21 09:34 BUN 39 mg/dL (6-20) H 07/06/21 09:34 Creatinine 0.8 mg/dL (0.6-1.2) 07/06/21 09:34 Estimated GFR (MDRD) 94 (>89) 07/06/21 09:34 Glucose 118 mg/dL (70-100) H 07/06/21 09:34 Lactic Acid 1.4 mmol/L (0.5-2.2) 06/29/21 19:08 Calcium 8.5 mg/dL (8.5-10.3) 07/06/21 09:34 Phosphorus 3.2 mg/dL (2.5-4.6) 07/04/21 04:53 Magnesium 2.3 mg/dL (1.7-2.8) 07/04/21 04:53 Total Bilirubin 1.1 mg/dL (0.2-1.0) H 07/04/21 04:53 Direct Bilirubin 0.3 mg/dL (0.1-0.5) 07/04/21 04:53 AST 57 IU/L (10-42) H 07/04/21 04:53 ALT 78 IU/L (10-60) H 07/04/21 04:53 Alkaline Phosphatase 91 IU/L (42-121) 07/04/21 04:53 C-Reactive Protein 6.6 mg/dL (0-1.0) H 07/05/21 04:38 Total Protein 6.1 g/dL (6.7-8.2) L 07/04/21 04:53 Albumin 3.0 g/dL (3.2-5.5) L 07/04/21 04:53 Globulin 3.1 g/dL (2.1-4.2) 07/04/21 04:53 Albumin/Globulin Ratio 1.2 (1.0-2.2) 06/29/21 19:08 TSH 0.69 uIU/mL (0.34-5.60) 07/03/21 04:30 Nasal Screen MRSA (PCR) NEGATIVE (NEGATIVE) 06/30/21 17:05
[2021-07-06] MEDS ORDERED: PPN IV SCH (19:00)
[2021-07-06] MEDS ORDERED: SODIUM CHLORIDE 0.9% 500 ML IV PRN (20:23)
[2021-07-06] MEDS: ENOXAPARIN 80 MG/0.8 ML SYRINGE SUBQ SCH (20:52)
[2021-07-06] MEDS: METOPROLOL 5 MG/5 ML VIAL IVP SCH (21:39)
[2021-07-06 22:30] LABS: ABG HCO3 23.9 mmol/L (22.0-26.0); ABG PCO2 37 mmHg (34-45); ABG PH 7.43 (7.35-7.45); ABG PO2 59 mmHg (80-100)
[2021-07-06 22:31] LABS: ABG OXYGEN SATURATION 90 % (94-98); ALLEN TEST POSITIVE
[2021-07-06 22:32] LABS: ABG MODE OF VENTILATION SYNCHRONOUS/TIMES
[2021-07-06] MEDS ORDERED: SODIUM CHLORIDE 0.9% 10 ML VIAL IVP ONE (22:49)
[2021-07-06] MEDS ORDERED: ROCURONIUM 50 MG/5 ML VIAL ONE (22:49)
[2021-07-06] MEDS ORDERED: KETAMINE 500 MG/10 ML VIAL ONE (22:49)
[2021-07-06] MEDS ORDERED: MIDAZOLAM 2 MG/2 ML VIAL ONE (22:49)
[2021-07-06] MEDS: PROPOFOL 500 MG/50 ML 500 MG/50 ML VIAL IV SCH (23:36)
--- NOTE | 2021-07-06 23:54 | CONSULTATION NOTE ---
Consultation Report: called by Dr. Gomez, Hospitalist for urgent intubation in ICU, secondary to Covid + respiratory failure. [id number] Pt intubated with Glidescope, blade #4, Grade 1 view, atraumatic, 8.0ETT, secured at 24cm. +BS throughout, +EtCO2, VS remain stable throughout. Pt tolerated well. NAC. see EMAR for VS. Care turned over to RN/RT/Hospitalist.
--- NOTE | 2021-07-07 00:18 | XRAY Report ---
PROCEDURE: Chest for Line Placement INDICATIONS: s/p intubation and ng tube placement TECHNIQUE: One view of the chest was acquired. COMPARISON: 07/04/2021 1244 hours FINDINGS: Surgical changes and devices: Endotracheal tube tip is 2.7 cm below the jeanmarie. Nasogastric tube in t he stomach, there is a right-sided PICC line tip in the mid SVC. Left dual-chamber pacemaker present. Lungs and pleura: Patchy bilateral pulmonary infiltrates are greater on the right. Pleural space riley r. Mediastinum: Mediastinal contours appear normal. Heart size is normal. Bones and chest wall: No suspicious bony lesions. Overlying soft tissues appear unremarkable. IMPRESSION: Lines and tubes in good position. Patchy bilateral pulmonary infiltrates, stable Reviewed by: Adams Chandler MD on 07/06/2021 11:16 PM [facility] Approved by: Adams Chandler MD on 07/06/2021 11:16 PM AKDT Station ID: [id number]
[2021-07-07] MEDS: SODIUM CHLORIDE FLUSH 0.9% 10 ML SYRINGE IVP SCH ×2 (00:19→08:10)
--- NOTE | 2021-07-07 00:21 | PROVIDER PROGRESS NOTE ---
Yacht Rigger Note - Yacht Rigger Note Yacht Rigger Note: Repeat ABG done around 10:30 PM this evening showed a pH of 7.43, PCO2 36.7, PO2 58.5. This was on an FiO2 of 100% on the BiPAP 10/27 There was virtually no improvement in patient's blood gases from the last time it was done at noon today. The patient was very confused at the time and unable to answer any questions. I had a conversation with the family highlighting the patient's increased oxygen requirement and the fact that we were at the maximum noninvasive measure possible. After extensive discussion they were agreeable to intubation. Patient was successfully intubated by anesthesia. at 23:25pm. He is currently on AC/VC mode respiratory rate 15 tidal volume 500 PEEP 7 FiO2 100% and on sedation with propofol. His oxygen saturation is between 90 and 94%.
[2021-07-07] MEDS: HYDROmorphone 0.5 MG/0.5 ML SYRINGE IVP PRN ×2 (01:13→08:34)
[2021-07-07 01:25] LABS: ABG BASE EXCESS 1.6 mmol/L (-2.0-3.0); ABG HCO3 26.3 mmol/L (22.0-26.0); ABG MODE OF VENTILATION ASSIST/CONTROL; ABG OXYGEN SATURATION 89 % (94-98); ABG PCO2 42 mmHg (34-45); ABG PH 7.42 (7.35-7.45); ABG PO2 57 mmHg (80-100); ABG RESPIRATORY RATE 16 b/min; ABG TCO2 27.5 MMOL/L (21.0-29.0); ALLEN TEST POSITIVE
[2021-07-07] MEDS: PROPOFOL 500 MG/50 ML 500 MG/50 ML VIAL IV SCH ×2 (03:47→08:11)
[2021-07-07 05:54] LABS: ABG BASE EXCESS 1.4 mmol/L (-2.0-3.0); ABG HCO3 25.3 mmol/L (22.0-26.0); ABG MODE OF VENTILATION ASSIST/CONTROL; ABG OXYGEN SATURATION 96 % (94-98); ABG PCO2 38 mmHg (34-45); ABG PH 7.44 (7.35-7.45); ABG PO2 81 mmHg (80-100); ABG RESPIRATORY RATE 16 b/min; ABG TCO2 26.4 MMOL/L (21.0-29.0); ALLEN TEST POSITIVE
[2021-07-07 06:04] LABS: BASOPHILS % (AUTO) 0.2 %; HGB - HEMOGLOBIN 12.9 g/dL (14.0-18.0); LYMPHOCYTES # (AUTO) 1.9 10^3/uL (1.5-3.5); LYMPHOCYTES % (AUTO) 9.8 %; MEAN CORPUSCULAR HEMOGLOBIN 30.5 pg (27.0-31.0); MEAN CORPUSCULAR HGB CONC 32.3 g/dL (32.0-36.0); MEAN CORPUSCULAR VOLUME 94.6 fL (80.0-94.0); MEAN PLATELET VOLUME 9.8 fL (7.4-11.4); MONOCYTES # (AUTO) 0.6 10^3/uL (0.0-1.0); MONOCYTES % (AUTO) 3.2 %; NEUTROPHILS # (AUTO) 16.9 10^3/uL (1.5-6.6); NEUTROPHILS % (AUTO) 85.5 %; PLT - PLATELET COUNT 352 10^3/uL (130-450); RED BLOOD COUNT 4.23 10^6/uL (4.70-6.10); RED CELL DISTRIBUTION WIDTH 12.6 % (12.0-15.0); WHITE BLOOD COUNT 19.8 x10^3/uL (4.8-10.8)
--- NOTE | 2021-07-07 06:17 | DISCHARGE SUMMARY ---
Discharge Summary Admit Date: 06/29/21 Discharge Date: 07/07/21 Discharging Provider: Elsy Gomez Primary Care Provider: Bj Marsh Code Status: Attempt Resuscitation Condition at Discharge: Stable Discharge Disposition: 02 Transfer Acute Care Hosp - DIAGNOSES Admission Diagnoses: COVID-19 Hypoxia Acute kidney insufficiency Hypertension Decreased urine stream Hypothyroidism History of atrial fibrillation Discharge Diagnoses with Status of Each Condition: Acute respiratory failure with hypoxia: Sedated and Intubated COVID-19: Currently sedated and Intubated History of atrial fibrillation: Chronic. 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 He also has high blood pressure, hyperlipidemia, and hypothyroidism. He presented to the emergency room on June 27 with fever, body aches, dry cough. He is unvaccinated.He has avoided a lot of socialization over the last year. States he does wear a mask in public. The last large public event he was at was the [employer] a week ago. He was feeling weak and dehydrated and was not eating very much. No emesis. Was having occasional diarrhea. In the emergency room he was 94 to 95 percent on room air. Heart rate was 59. And chest x-ray had mild bilateral patchy airspace opacity. COVID-19 positive. The risk and benefits of monoclonal antibody therapy were discussed. He declined that therapy. Today he became more short of breath. Could not stop coughing and went to [facility]. [facility] emergency room saw him and stated that his oxygenation was not low enough to be admitted and sent him home. Once home today, he could not get his O2 sats above 90 percent and as such he came to our emergency room again. Temperature is 37.2. Heart rate 61. Respiration 19. Blood pressure 139/87. He is 88 percent on room air. He is a middle-aged toxic appearing white male with a nonstop dry cough. Moist oral mucosa. Clear lungs. Sodium is 133. BUN 25. Creatinine 1.5. Baseline creatinine is usually 1.0-1.3. C-reactive protein is 7.8. Lactic acid 1.4. White cell count is low at 4.6. Hemoglobin 15.2. Chest x-ray shows worsening bilateral patchy infiltrates. He is now admitted for COVID-19 pneumonia. - HOSPITAL COURSE Hospital Course: At the time of admission patient only required 2 L of oxygen via nasal cannula to keep his oxygen saturation in the 90s. His oxygen requirement steadily increased to 6L, then oxymask. The patient was then subsequently switched to high flow nasal cannula which was steadily titrated up over the course of 2 days. His oxygen saturation mostly stayed between 88 to 92% even with an FiO2 of 100%. As a result on day #8 he was intubated. Sedation was with Propofol. At admission the patient was started on Decadron which he received IV daily to date. He also received remdesivir for 5 days. Initially his white blood cell count was normal. It was 12.6 on 07/03/21 and steadily increased to 14 by the day of transfer. His chest x-ray showed worsening bilateral patchy groundglass and consolidative airspace opacities on 07/03/21 when compared to the xray of 06/29/21. Consequently he was started on Rocephin and azithromycin. Prior to intubation his pH was 7.43, PCO2 37, PO2 59, oxygen saturation 90. He was on AC/VC mode, respiratory rate 16, tidal volume 500, PEEP 7. Repeat ABG about 4 hours later showed a pH of 7.47, PCO2 38, PO2 81, oxygen saturation 96%. After discussing with the patient's son and the way agreeable to have the patient transferred to another facility for higher level of care. Dr. Armani Haney the purification operator helper at [facility] Was contacted and he agreed to take the patient onto his care. Consequently he was transferred to [facility]. - ALLERGIES Allergies/Adverse Reactions: Allergies Allergy/AdvReac Type Severity Reaction Status Date / Time No Known Drug Allergies Allergy Verified 01/05/21 18:28 - MEDICATIONS Home Medications: Ambulatory Orders Medication Instructions Recorded Confirmed Apixaban [Eliquis] 5 mg PO BID 01/05/21 06/30/21 Flecainide [Tambocar] 100 mg PO BID 01/05/21 06/30/21 Levothyroxine Sodium [Synthroid] 175 mcg PO DAILY 01/05/21 06/30/21 Tamsulosin HCl [Flomax] 0.4 mg PO DAILY 01/05/21 06/30/21 Rosuvastatin Calcium [Crestor] 5 mg PO QPM 06/30/21 06/30/21 dilTIAZem HCL [Diltiazem 24Hr ER 180 mg PO DAILY 06/30/21 06/30/21 (Xr)] - PHYSICAL EXAM AT DISCHARGE General Appearance: positive: No acute distress, Other (Sedated and intubated) Eyes Bilateral: positive: PERRL, EOMI ENT: positive: No signs of dehydration Neck: positive: No JVD, Trachea midline Respiratory: positive: Other (Coarse breath sounds, mild crackles) Cardiovascular: positive: No murmur, Other (paced rhythm) Abdomen: positive: Non-tender, Nml bowel sounds, No distention. negative: Guarding, Rebound Skin: positive: Color nml, No rash, Warm, Dry Extremities: positive: Non-tender, Full ROM, Nml appearance, No pedal edema Neurologic/Psychiatric: positive: Other (sedated and intubated) - LABS Result Diagrams: 07/07/21 05:30 07/07/21 05:30 - TIME SPENT Time Spent in Discharge (Minutes): 35
--- NOTE | 2021-07-07 06:20 | Discharge Plan ---
Discharge Plan Problem Reviewed?: Yes Disposition: 02 Transfer Acute Care Hosp Condition: Stable Health Concerns: Patient was admitted with acute respiratory failure with hypoxia which was due to COVID-19 infection. Patient was initially started on supplemental oxygen via nasal cannula at 2 L. This was steadily increased over the course of his hospital stay to 6 L then oxygen mask and high flow and subsequently BiPAP. Patient eventually required more oxygen and was intubated. During his hospital stay he has been treated daily with Decadron 6 mg IV. He completed a 5 day course of remdesivir. He was also treated with azithromycin and Rocephin. He is being transferred to [facility] for higher level of care. This was discussed with the patient's and son who expressed understanding and are agreeable with the care. No Smoking: If you smoke, Please STOP! Call for help. Follow-up with: Bj Marsh MD [Primary Care Provider] -
[2021-07-07] MEDS: METOPROLOL 5 MG/5 ML VIAL IVP SCH (06:21)
[2021-07-07 06:27] LABS: CALCIUM 8.5 mg/dL (8.5-10.3); CREATININE 0.9 mg/dL (0.6-1.2)
[2021-07-07 06:31] LABS: POTASSIUM 7.4 mmol/L (3.5-5.0)
[2021-07-07 06:36] LABS: MAGNESIUM 3.2 mg/dL (1.7-2.8); PHOSPHORUS 9.9 mg/dL (2.5-4.6)
[2021-07-07 07:07] LABS: CALCIUM 8.7 mg/dL (8.5-10.3); CREATININE 0.9 mg/dL (0.6-1.2); POTASSIUM 4.3 mmol/L (3.5-5.0)
[2021-07-07 07:25] LABS: MAGNESIUM 2.7 mg/dL (1.7-2.8)
[2021-07-07] MEDS: cefTRIAXone 2 GM in SODIUM CHLORIDE 0.9% MINIBAG 100 ML IV SCH (08:04)
[2021-07-07] MEDS: DEXAMETHASONE 10 MG/ML VIAL IVP SCH (08:06)
[2021-07-07] MEDS: AZITHROMYCIN 250 MG TABLET PO SCH (08:06)
[2021-07-07] MEDS: ENOXAPARIN 80 MG/0.8 ML SYRINGE SUBQ SCH (08:08)
[2021-07-07] MEDS: LORazepam 2 MG/ML VIAL IVP PRN (08:36)
[2021-07-07 09:15] VITALS: BP 137/62
[2021-07-10] MEDS ORDERED: LEVOTHYROXINE 100 MCG VIAL IVP SCH (07:00)
== END 2021-07-07 09:54 | disposition short-term general hospital (02) | DRG 208 ==
LOC: ED 17:43 → MS2 19:51 → ICU 06-30 12:30
PROVIDERS: ADMIT Specialist; ATTEND Internal Medicine
PROC: XW033E5 Introduction of Remdesivir Anti-infective into Peripheral Vein, Percutaneous Approach, New Technology Group 5 (ICD-10-PCS; 2021-06-30)
PROC: 3E0333Z Introduction of Anti-inflammatory into Peripheral Vein, Percutaneous Approach (ICD-10-PCS; 2021-06-30)
PROC: 02HV33Z Insertion of Infusion Device into Superior Vena Cava, Percutaneous Approach (ICD-10-PCS; 2021-07-06)
PROC: 5A1935Z Respiratory Ventilation, Less than 24 Consecutive Hours (ICD-10-PCS; principal; 2021-07-07)
PROC: 0BH17EZ Insertion of Endotracheal Airway into Trachea, Via Natural or Artificial Opening (ICD-10-PCS; 2021-07-07)
DX: U07.1 COVID-19 (principal); R09.02 Hypoxemia; I48.91 Unspecified atrial fibrillation; J96.01 Acute respiratory failure with hypoxia; Z79.01 Long term (current) use of anticoagulants; Z79.899 Other long term (current) drug therapy; J12.82 Pneumonia due to coronavirus disease 2019; J15.9 Unspecified bacterial pneumonia; N17.9 Acute kidney failure, unspecified; I48.20 Chronic atrial fibrillation, unspecified; G47.30 Sleep apnea, unspecified; E86.0 Dehydration; I10 Essential (primary) hypertension; E03.9 Hypothyroidism, unspecified; Z95.0 Presence of cardiac pacemaker; I49.5 Sick sinus syndrome; E78.5 Hyperlipidemia, unspecified; G89.29 Other chronic pain; M54.9 Dorsalgia, unspecified; M19.90 Unspecified osteoarthritis, unspecified site; Z87.891 Personal history of nicotine dependence; Z98.890 Other specified postprocedural states
CPT/HCPCS: 36415; 36600; 71045; 80048; 80053; 80076; 82803; 83605; 83735; 84100; 84443; 85025; 85379; 85610; 86140; 87040; 87150; 94002; 94003; 94660; 99284; 99285; A9270; C9399; J1170; J1650; J2060